=== PATIENT | female | born 1955 | race Caucasian/White ===

== ENCOUNTER 2018-05-17 12:24 | Inpatient (IN) | payer SELFPAY ==
[2018-05-17 12:41] VITALS: BP 111/84; PULSE 77; RESP 16; TEMP 36.6; O2SAT 91; BMI 31.9
[2018-05-17 13:10] VITALS: O2SAT 93
--- NOTE | 2018-05-17 13:22 | CT_ITS ---
CT abdomen pelvis w con CLINICAL INDICATION: Abdominal pain with distention and vomiting, constipation ITS.REASON: abdominal pain, distention ORDERING PHYSICIAN: Irene Mena MD PATIENT AGE: 62 years COMPARISON: none TECHNIQUE: Axial images obtained with sagittal and coronal reformats. All CT scans at the facility use one or more dose reduction, viz: automated exposure control, ma/kV adjustment per patient size (including targeted exams where dose is matched to indication, i.e. head), or iterative reconstruction technique. PROCEDURE: Oral Contrast: Gastroview IV Contrast: 75 mL's of Isovue-370. FINDINGS: Lower thorax: There is collapse of the left lower lobe with a moderate-sized left pleural effusion. The liver has irregular margin and is slightly small consistent with cirrhosis. There is diffuse ascites. There is splenomegaly at 15 cm. No focal liver lesion demonstrated. The gallbladder is distended at 11 x 5.5 cm. Unremarkable adrenal glands. No obvious pancreatic mass. There is diffuse abdominal pelvic ascites. Increased attenuation noted of the mesenteric fat and there is mild diffuse colonic wall thickening and small bowel wall thickening as well. These findings may be seen with cirrhosis/portal hypertension and ascites. However, there is asymmetrical increased thickening of the colon in the splenic flexure region which may be related to superimposed colitis. Neoplasm could have a similar appearance. Therefore, follow-up is recommended. No evidence of intestinal obstruction or free air. No obvious abscess. There is also some mild thickening of the rectosigmoid region nonspecific. No acute bony findings. IMPRESSION: 1. Cirrhosis with portal hypertension with ascites, and splenomegaly with mild diffuse bowel wall thickening and increased attenuation of the peritoneal fat 2. Asymmetrical: Thickening in the splenic flexure suspicious for underlying colitis or even neoplasm. 3. Distended gallbladder. 4. Moderate-sized left pleural effusion with left lower lobe collapse
[2018-05-17 14:10] LABS: Alanine Aminotransferase 47 U/L (12-78); Albumin Level 2.6 gm/dL (3.4-5.0); Albumin/Globulin Ratio 0.5 (1.1-1.8); Alkaline Phosphatase 146 U/L (46-116); Amylase 21 U/L (25-115); Anion Gap 11.8 mEq/L (5-15); Aspartate Amino Transferase 130 U/L (15-37); Bilirubin,Total 2.2 mg/dL (0.2-1.0); Blood Urea Nitrogen 12 mg/dL (7-18); Calcium 8.8 mg/dL (8.5-10.1); Carbon Dioxide 29 mmol/L (21.0-32.0); Chloride 99 mmol/L (98-107); Creatinine Clearance Estimated 77 mL/min (50-200); Creatinine,Serum 1.01 mg/dL (0.55-1.02); Estimated Glomerular Filt Rate 56 ml/min (>60); GFR (African American) 67 ML/MIN (>60); Globulin 5.4 gm/dl (1.3-3.2); Glucose 104 mg/dL (74-106); Lipase 190 u/L (73-393); Sodium 137 mmol/L (136-145); Thyroid Stimulating Hormone 0.24 uIU/ml (0.358-3.740)
[2018-05-17 14:11] LABS: CKMB Relative Index 1.4 U/L (0-4.0); Creatine Kinase 36 U/L (26-192); Creatine Kinase MB 0.5 ng/ml (0.0-3.6); Troponin I < 0.02 ng/ml (0.00-0.06)
[2018-05-17 14:12] LABS: Potassium 2.8 mmoL/L (3.5-5.1)
--- NOTE | 2018-05-17 14:18 | P.CONPHA_ITS ---
[facility] Pharmacy VTE Monitoring - Patient Demographics Admission date: 05/17/18 Report Date: 05/17/18 Time: 14:18 Allergies/Adverse Reactions: Patient Allergies morphine Allergy (Severe, Verified 05/17/18 13:00) Hallucinating Penicillins Allergy (Severe, Verified 05/17/18 14:13) Anaphylaxis COFFEE BEANS Allergy (Unknown, Uncoded 04/05/17 14:43) HISTAMINE RELEASE-DIFF BREATHING FISH ONLY Allergy (Unknown, Uncoded 04/05/17 14:43) HISTAMINE RELEASE-DIFF BREATHING GARLIC Allergy (Unknown, Uncoded 04/05/17 14:43) VOMITING/DIARRHEA Promethazine Allergy (Unknown, Uncoded 04/05/17 14:43) NA-NAUSEA/VOMITING STRAWBERRIES Allergy (Unknown, Uncoded 04/05/17 14:43) HISTAMINE RELEASE-DIFF BREATHING Height: 1.63 m Weight: 84.482 kg - VTE Risk Labs: VTE Related Lab Results BUN 12 mg/dL (7-18) 05/17/18 13:28 Creatinine 1.01 mg/dL (0.55-1.02) 05/17/18 13:28 Estimated Creat Clear 77 mL/min (50-200) 05/17/18 13:28 Was VTE Risk Assessment Performed: Yes VTE Score: 9 VTE Risk Level: Moderate Risk Clinical Trial Participant: No - Prophylaxis VTE Prophylaxis Ordered?: Yes Types of VTE Prophylaxis: TEDS Knee High
[2018-05-17 14:25] LABS: Basophils % 0.2 % (0.1-2.0); Eosinophils % 0.6 % (0.1-12.0); Hematocrit 50.4 % (37.0-47.0); Hemoglobin 15.4 g/dL (12.2-16.2); Lymphocytes # 0.8 K/mm3 (0.7-4.5); Lymphocytes % 17.3 % (10-50); Mean Corpuscular HGB Conc 30.5 g/dL (31.8-35.4); Mean Corpuscular Hemoglobin 25.8 pg (27.0-31.2); Mean Corpuscular Volume 84.5 fl (81-99); Mean Platelet Volume 8.6 fl (7.4-10.4); Monocytes # 0.2 K/mm3 (0.1-1.0); Monocytes % 4.8 % (1.7-9.3); Neutrophils # 3.7 K/mm3 (1.8-7.8); Platelet Count 117 K/mm3 (142-424); Red Blood Count 5.96 M/mm3 (4.20-5.40); Red Cell Distribution Width 22.2 % (11.5-17.5); White Blood Count 4.9 K/mm3 (4.8-10.8)
--- NOTE | 2018-05-17 14:55 | HMH.PHAINT ---
Discussed home medication list with patient at length. Discussed list from Dr Mena's office with her and confirmed doses and directions with her. updated home medication reconciliation list to reflect that discussion.
[2018-05-17 15:16] VITALS: BP 125/78; PULSE 66; RESP 17; TEMP 36.8; O2SAT 93
--- NOTE | 2018-05-17 15:18 | PC.NURSE ---
patient came to floor as new admit. refused bath. reported to nurse
--- NOTE | 2018-05-17 15:57 | PC.NURSE ---
Pt admitted to floor via w/c as direct admission from Dr. Reynoso office at 1233. A/O x 3, verbalizes needs. Pt states she has not had a bowel movement for 2 weeks, c/o's N/V due to sinus drainage, and hard abdomen with pain. Pt with rigid, non-tender abdomen. Rates abdomen pain at 7/10. Stated she gave herself a fleets enema at home with no results. 20g IV started to LAC, with D5W 0.45% NaCL with 20 mEq of potassium infusing. PRN zofran given d/t nausea and having to drink oral contrast. Med rec completed by pharmacy. Lungs CTA, uses CPAP at night but does not want to bring to hospital. O2 at 2 L/m via NC in place. C/o's shortness of air with excertion. Reports poor appetite and only being able to tolerate gatorade/víctor pavel/tea/water. Completed drinking oral contrast at 1600, notified CT. Locked checkbook and credit cards in med drawer per pt request. Call light within reach, will continue to observe for any changes.
--- NOTE | 2018-05-17 17:18 | PC.NURSE ---
LATE ENTRY 1700 CARE ROUND0- PT WAS LYING IN BED & NO NEEDS VOICED.
--- NOTE | 2018-05-17 19:12 | PC.NURSE ---
report given to rashid
--- NOTE | 2018-05-17 19:41 | XR_ITS ---
XR chest 2V HISTORY: Shortness of breath, pleural effusion ITS.REASON: pleural effusion ORDERING PHYSICIAN: Irene Mena MD PATIENT AGE: 62 years COMPARISON: 02/14/2014 FINDINGS: Prior median sternotomy. Normal heart size.. Medium-sized left pleural effusion noted with consolidation in the left lower lobe and mild atelectasis in the right lower lobe.. No acute bony abnormalities. IMPRESSION: Moderate size left pleural effusion with left lower lobe consolidation
[2018-05-17 20:00] VITALS: BP 141/72; PULSE 63; RESP 19; TEMP 37; O2SAT 94
--- NOTE | 2018-05-17 20:14 | HMH.ACPN2 ---
Internal Medicine - PN: Subj *Date: 05/17/18 *Time: 20:14 Interval history: This 62-year-old white female patient was admitted today from the office of [facility]. See the H&P that came over from the office. She was admitted with nausea and vomiting. She has had increase in abdominal girth and distention. She states that she has had no bowel movement for the past 2 weeks. She has been noncompliant in her office follow-up. She has known coronary artery disease. Her workup today has shown hypokalemia at 2.8. The CT of her abdomen and pelvis reveals evidence of cirrhosis and ascites. She is not a drinker, thus the etiology of this needs to be determined. History of colonoscopy in 2010. Exam Vital signs and Labs for Last 24 Hours: Temp Pulse Resp BP Pulse Ox 98.2 F 66 17 125/78 93 L 05/17/18 15:16 05/17/18 15:16 05/17/18 15:16 05/17/18 15:16 05/17/18 15:16 Laboratory Results - last 24 hr 05/17/18 13:28: WBC 4.9, RBC 5.96 H, Hgb 15.4, Hct 50.4 H, MCV 84.5, MCH 25.8 L, MCHC 30.5 L, RDW 22.2 H, Plt Count 117 L, MPV 8.6, Neut % (Auto) 77.0, Lymph % (Auto) 17.3, [place] % (Auto) 4.8, Eos % (Auto) 0.6, Baso % (Auto) 0.2, Neut # (Auto) 3.7, Lymph # (Auto) 0.8, [place] # (Auto) 0.2, Eos # (Auto) 0.0, Baso # (Auto) 0.0 05/17/18 13:28: Sodium 137, Potassium 2.8 L*, Chloride 99, Carbon Dioxide 29, Anion Gap 11.8, BUN 12, Creatinine 1.01, Estimated Creat Clear 77, Estimated GFR 56 L, Est GFR ( Amer) 67, Glucose 104, Calcium 8.8, Total Bilirubin 2.2 H, AST 130 H, ALT 47, Alkaline Phosphatase 146 H, Total Protein 8.0, Albumin 2.6 L, Globulin 5.4 H, Albumin/Globulin Ratio 0.5 L, Amylase 21 L, Lipase 190, TSH 0.24 L 05/17/18 13:28: Total Creatine Kinase 36, CK-MB (CK-2) 0.5, CK-MB (CK-2) Rel Index 1.4, Troponin I < 0.02 I & O for Last 24 hours: Intake & Output 05/15/18 05/16/18 05/17/18 05/18/18 11:59 11:59 11:59 11:59 Intake Total 350 / 350 Balance 350 / 350 Weight 186 lb 4 oz - Constitutional Comments: She appears ill but seems to be better than she was on admission. She was dehydrated on admission. - *Routine Respiratory Exam Present: decreased breath sounds, CTA bilaterally - *Routine Cardiovascular Exam Present: RRR - *Routine Abdominal Exam Present: normoactive bowel sounds (Slightly hypo-.), distended - *Routine Extremities Exam Absent: edema - *Routine Neurological Exam Present: alert, oriented X3 Assessment and Plan (1) Dehydration Current visit: Yes Status: Acute Category: Medical Code(s): E86.0 - Dehydration (2) Nausea and vomiting Current visit: Yes Status: Acute Category: Medical Code(s): R11.2 - Nausea with vomiting, unspecified (3) Cirrhosis of liver with ascites Current visit: Yes Status: Acute Category: Medical Code(s): K74.60 - Unspecified cirrhosis of liver; R18.8 - Other ascites (4) Pleural effusion associated with hepatic disorder Current visit: Yes Status: Acute Category: Medical Code(s): K76.9 - Liver disease, unspecified; J91.8 - Pleural effusion in other conditions classified elsewhere (5) Hypokalemia Current visit: Yes Status: Acute Category: Medical Code(s): E87.6 - Hypokalemia (6) Coronary artery disease Current visit: Yes Status: Acute Category: Medical Code(s): I25.10 - Atherosclerotic heart disease of [place] coronary artery without angina pectoris (7) History of coronary artery bypass graft x 3 Current visit: Yes Status: Acute Category: Surgical Code(s): Z95.1 - Presence of aortocoronary bypass graft (8) Rheumatoid arthritis Current visit: Yes Status: Acute Category: Medical Code(s): M06.9 - Rheumatoid arthritis, unspecified (9) Goiter Current visit: Yes Status: Acute Category: Medical Code(s): E04.9 - Nontoxic goiter, unspecified (10) Smoking history Current visit: Yes Status: Acute Category: Medical Code(s): Z87.891 - Personal history of nicotine dep
--- NOTE | 2018-05-17 20:17 | P.PN_ITS ---
Internal Medicine - PN: Subj *Date: 05/17/18 *Time: 20:14 Interval history: This 62-year-old white female patient was admitted today from the office of [facility]. See the H&P that came over from the office. She was admitted with nausea and vomiting. She has had increase in abdominal girth and distention. She states that she has had no bowel movement for the past 2 weeks. She has been noncompliant in her office follow-up. She has known coronary artery disease. Her workup today has shown hypokalemia at 2.8. The CT of her abdomen and pelvis reveals evidence of cirrhosis and ascites. She is not a drinker, thus the etiology of this needs to be determined. History of colonoscopy in 2010. Exam Vital signs and Labs for Last 24 Hours: Temp Pulse Resp BP Pulse Ox 98.2 F 66 17 125/78 93 L 05/17/18 15:16 05/17/18 15:16 05/17/18 15:16 05/17/18 15:16 05/17/18 15:16 Laboratory Results - last 24 hr 05/17/18 13:28: WBC 4.9, RBC 5.96 H, Hgb 15.4, Hct 50.4 H, MCV 84.5, MCH 25.8 L, MCHC 30.5 L, RDW 22.2 H, Plt Count 117 L, MPV 8.6, Neut % (Auto) 77.0, Lymph % (Auto) 17.3, [place] % (Auto) 4.8, Eos % (Auto) 0.6, Baso % (Auto) 0.2, Neut # (Auto) 3.7, Lymph # (Auto) 0.8, [place] # (Auto) 0.2, Eos # (Auto) 0.0, Baso # (Auto) 0.0 05/17/18 13:28: Sodium 137, Potassium 2.8 L*, Chloride 99, Carbon Dioxide 29, Anion Gap 11.8, BUN 12, Creatinine 1.01, Estimated Creat Clear 77, Estimated GFR 56 L, Est GFR ( Amer) 67, Glucose 104, Calcium 8.8, Total Bilirubin 2.2 H , AST 130 H, ALT 47, Alkaline Phosphatase 146 H, Total Protein 8.0, Albumin 2.6 L, Globulin 5.4 H, Albumin/Globulin Ratio 0.5 L, Amylase 21 L, Lipase 190, TSH 0.24 L 05/17/18 13:28: Total Creatine Kinase 36, CK-MB (CK-2) 0.5, CK-MB (CK-2) Rel Index 1.4, Troponin I < 0.02 I & O for Last 24 hours: Intake & Output 05/15/18 05/16/18 05/17/18 05/18/18 11:59 11:59 11:59 11:59 Intake Total 350 / 350 Balance 350 / 350 Weight 186 lb 4 oz - Constitutional Comments: She appears ill but seems to be better than she was on admission. She was dehydrated on admission. - *Routine Respiratory Exam Present: decreased breath sounds, CTA bilaterally - *Routine Cardiovascular Exam Present: RRR - *Routine Abdominal Exam Present: normoactive bowel sounds (Slightly hypo-.), distended - *Routine Extremities Exam Absent: edema - *Routine Neurological Exam Present: alert, oriented X3 Assessment and Plan (1) Dehydration Current visit: Yes Status: Acute Category: Medical Code(s): E86.0 - Dehydration (2) Nausea and vomiting Current visit: Yes Status: Acute Category: Medical Code(s): R11.2 - Nausea with vomiting, unspecified (3) Cirrhosis of liver with ascites Current visit: Yes Status: Acute Category: Medical Code(s): K74.60 - Unspecified cirrhosis of liver; R18.8 - Other ascites (4) Pleural effusion associated with hepatic disorder Current visit: Yes Status: Acute Category: Medical Code(s): K76.9 - Liver disease, unspecified; J91.8 - Pleural effusion in other conditions classified elsewhere (5) Hypokalemia Current visit: Yes Status: Acute Category: Medical Code(s): E87.6 - Hypokalemia (6) Coronary artery disease Current visit: Yes Status: Acute Category: Medical Code(s): I25.10 - Atherosclerotic heart disease of [place] coronary artery without angina
[2018-05-18] VITALS (8 sets, daily range): BP systolic 126–157; BP diastolic 65–84; PULSE 66–90; RESP 16–20; TEMP 36.6–37.3; O2SAT 91–95; BMI 31.8
--- NOTE | 2018-05-18 04:35 | PC.NURSE ---
UPON INITIAL ASSESSMENT ABD DISTENDED AND TENDER WITH HYPOACTIVE BOWEL SOUNDS. PT. REPORTS FLATUS AND BELCHING. AT 0154 PT. BATHROOM CALL LIGHT WENT OFF; SRNA RESPONDED TO LIGHT THEN ALERTED NURSE TO ALSO RESPOND. UPON ENTERING PT. BATHROOM, PT. WAS FOUND SITTING ON THE BATHROOM FLOOR FACING THE TOILET; LOOSE STOOL NOTED ON PT. AND BATHROOM FLOOR. PT. ABLE TO STATE NAME, AND PLACE AND DENIED PAIN. PT. REPORTED DIZZINESS. VS: BP: 157/84, HR: 90, O2 SAT: 91% RA. PT. STATED I FELT MY BELLY RUMBLE SO I WENT TO THE BATHROOM BUT DIDN'T MAKE IT , I WAS STANDING UP CLEANING THE FLOOR WHEN MY KNEES BUCKLED , I FELL ON MY BUTT . PT. ASSISTED TO SHOWER CHAIR WITH X3 ASSIST; WEAKNESS NOTED UPON STANDING. NO BRUISES OR OTHER ABNORMALITIES NOTED. PT. ABLE TO MOVE EXTREMITIES AT BASELINE FUNCTION. BSC PLACED IN ROOM, BED ALARM ACTIVATED, AND FALLEN STAR PROTOCOL IN PLACE. EDUCATED PT. ON THE IMPORTANCE OF NOTIFYING STAFF OF NEEDS; PT. VERBALIZED UNDERSTANDING. NOTIFIED OF ABOVE SITUATION AND RECOMMENDED BSC. PT. HAS NOT C/O N/V THIS SHIFT. IV PATENT AND INFUSING SHOWING NO S/S OF INFILTRATION. VSS. WILL CONTINUE TO MONITOR.
--- NOTE | 2018-05-18 07:00 | CA_ITS ---
PROCEDURE: 2-D M-mode and color Doppler study INDICATIONS FOR THE TEST: Chest pain COPD Heart Murmur Tobacco SmokingEX Palpitations Fatigue Syncope Edema Hypertension Diabetes Mellitus Rheumatic Fever SOB YOON Obesity+Hyperlipidemia Family History HD Additional History CABG, STENTS, PLEURAL EFFUSION, CAD, CIRRHOSIS, RHEUMATOID PATIENT INFORMATION HEIGHT: 64 WEIGHT:186 GENDER: Female B/P:125/78 2-D/M-MODE INTERPRETATION: 2-D MEASUREMENTS OBSERVED VALUES IN CMS Right Ventricular Dimension (RVDd) 2.1 Interventricular Septum (Thickness)(IVsd) 1.0 Left Ventricular Internal Dimensions(LVIDd) 5.0 Left Ventricular Posterior Wall (Thickness)(LVPWd) 0.9 Aortic Root 3.0 Aortic Cusp Separation 1.6 Left Atrial Dimensions (LAD) 4.5 2D 1. Left atrium is mildly enlarged, left ventricle is normal size, there is no concentric left ventricular hypertrophy, visually estimated ejection fraction 50% with no regional wall motion abnormality. 2. The right atrium and right ventricle are normal size and contractility. 3. There is nodular thickening and calcification of the aortic valve seen. The leaflet continue to display good mobility. 4. The mitral and tricuspid valvular grossly normal. 5. The pulmonic valve is poorly visualized. 6. No significant pericardial effusion noted, there is left-sided pleural effusion seen. DOPPLER INTERROGATION: Doppler interrogation of the aortic, mitral and tricuspid valvular presence of mild mitral and tricuspid regurgitation, tricuspid regurgitation jet velocity is inadequate for calculation of the right ventricular systolic pressure, grade 2 diastolic dysfunction seen with tissue Doppler evidence of raised left atrial pressure. CONCLUSION: 1. Mildly enlarged left atrium, normal left ventricular size, visually estimated ejection fraction 50% with no regional wall motion abnormality, grade 2 diastolic dysfunction seen with tissue Doppler evidence of raised left atrial pressure. 2. Mild mitral and tricuspid regurgitation 3. No significant pericardial effusion noted, there is left-sided pleural effusion seen.
--- NOTE | 2018-05-18 07:00 | US_ITS ---
US gallbladder HISTORY: Abdominal pain, ascites, distended gallbladder ITS.REASON: hepatitis with ascites ORDERING PHYSICIAN: Irene Mena MD PATIENT AGE: 62 years Comparison: None FINDINGS: PANCREAS: Unremarkable. No obvious mass or abnormal fluid collection. No ductal dilatation LIVER: Irregular contour of the liver with coarse echogenicity consistent with cirrhosis with ascites. The portal blood flow is abnormal. Turbulent flow is present in the portal region RIGHT KIDNEY: Unremarkable. Normal size and echogenicity. No hydronephrosis GALLBLADDER: The gallbladder is distended with thick appearing sludge. There is a small amount of pericholecystic fluid. Gallbladder wall is not thickened. Common bile duct is normal at 5 mm IMPRESSION: 1. Cirrhosis with ascites. There is turbulent blood flow in the portal vein area. This is of questionable clinical significance and could be seen with recanalization of the portal vein or turbulent flow with portal hypertension 2. Distended gallbladder with thick appearing sludge in the region of the neck of the gallbladder. Small stones could be obscured.
[2018-05-18 08:31] LABS: Alanine Aminotransferase 40 U/L (12-78); Albumin Level 2.2 gm/dL (3.4-5.0); Albumin/Globulin Ratio 0.5 (1.1-1.8); Alkaline Phosphatase 115 U/L (46-116); Anion Gap 10.4 mEq/L (5-15); Aspartate Amino Transferase 103 U/L (15-37); Bilirubin,Total 1.7 mg/dL (0.2-1.0); Blood Urea Nitrogen 9 mg/dL (7-18); Calcium 8.2 mg/dL (8.5-10.1); Carbon Dioxide 27 mmol/L (21.0-32.0); Chloride 101 mmol/L (98-107); Creatinine Clearance Estimated 78 mL/min (50-200); Creatinine,Serum 0.87 mg/dL (0.55-1.02); Estimated Glomerular Filt Rate 66 ml/min (>60); GFR (African American) 80 ML/MIN (>60); Globulin 4.4 gm/dl (1.3-3.2); Glucose 141 mg/dL (74-106); Potassium 3.4 mmoL/L (3.5-5.1); Sodium 135 mmol/L (136-145); Total Protein,Serum 6.6 gm/dL (6.4-8.2)
--- NOTE | 2018-05-18 08:45 | HMH.ACPN2 ---
Internal Medicine - PN: Subj *Date: 05/18/18 *Time: 08:45 Interval history: Patient still feels very poorly this morning. She states her entire abdomen is hurting. She still not had a bowel movement. She states she did have a small accident with some leakage of stool during the night but no actual bowel movement. She is very nauseated. She is also short of breath. Exam Vital signs and Labs for Last 24 Hours: Temp Pulse Resp BP Pulse Ox 97.9 F 74 16 152/77 H 94 L 05/18/18 08:00 05/18/18 08:00 05/18/18 08:00 05/18/18 08:00 05/18/18 08:00 Laboratory Results - last 24 hr 05/17/18 13:28: WBC 4.9, RBC 5.96 H, Hgb 15.4, Hct 50.4 H, MCV 84.5, MCH 25.8 L, MCHC 30.5 L, RDW 22.2 H, Plt Count 117 L, MPV 8.6, Neut % (Auto) 77.0, Lymph % (Auto) 17.3, [place] % (Auto) 4.8, Eos % (Auto) 0.6, Baso % (Auto) 0.2, Neut # (Auto) 3.7, Lymph # (Auto) 0.8, [place] # (Auto) 0.2, Eos # (Auto) 0.0, Baso # (Auto) 0.0 05/17/18 13:28: Sodium 137, Potassium 2.8 L*, Chloride 99, Carbon Dioxide 29, Anion Gap 11.8, BUN 12, Creatinine 1.01, Estimated Creat Clear 77, Estimated GFR 56 L, Est GFR ( Amer) 67, Glucose 104, Calcium 8.8, Total Bilirubin 2.2 H, AST 130 H, ALT 47, Alkaline Phosphatase 146 H, Total Protein 8.0, Albumin 2.6 L, Globulin 5.4 H, Albumin/Globulin Ratio 0.5 L, Amylase 21 L, Lipase 190, TSH 0.24 L 05/17/18 13:28: Total Creatine Kinase 36, CK-MB (CK-2) 0.5, CK-MB (CK-2) Rel Index 1.4, Troponin I < 0.02 I & O for Last 24 hours: Intake & Output 05/15/18 05/16/18 05/17/18 05/18/18 11:59 11:59 11:59 11:59 Intake Total 2073 Balance 2073 Weight 185 lb 9 oz Radiology Reports for the Last 24 Hours: CXR - Moderate size left pleural effusion with left lower lobe consolidation - Constitutional Comments: Does not appear to feel well - *Routine Respiratory Exam Present: rales (LLL). Absent: wheezes - *Routine Cardiovascular Exam Present: RRR - *Routine Abdominal Exam Present: normoactive bowel sounds, tenderness (diffuse), distended - *Routine Extremities Exam Absent: cyanosis, clubbing, edema Assessment and Plan (1) Dehydration Current visit: Yes Status: Acute Category: Medical Code(s): E86.0 - Dehydration (2) Nausea and vomiting Current visit: Yes Status: Acute Category: Medical Code(s): R11.2 - Nausea with vomiting, unspecified (3) Cirrhosis of liver with ascites Current visit: Yes Status: Acute Category: Medical Code(s): K74.60 - Unspecified cirrhosis of liver; R18.8 - Other ascites (4) Pleural effusion associated with hepatic disorder Current visit: Yes Status: Acute Category: Medical Code(s): K76.9 - Liver disease, unspecified; J91.8 - Pleural effusion in other conditions classified elsewhere (5) Hypokalemia Current visit: Yes Status: Acute Category: Medical Code(s): E87.6 - Hypokalemia (6) Coronary artery disease Current visit: Yes Status: Acute Category: Medical Code(s): I25.10 - Atherosclerotic heart disease of [place] coronary artery without angina pectoris (7) History of coronary artery bypass graft x 3 Current visit: Yes Status: Acute Category: Surgical Code(s): Z95.1 - Presence of aortocoronary bypass graft (8) Rheumatoid arthritis Current visit: Yes Status: Acute Category: Medical Code(s): M06.9 - Rheumatoid arthritis, unspecified (9) Goiter Current visit: Yes Status: Acute Category: Medical Code(s): E04.9 - Nontoxic goiter, unspecified (10) Smoking history Current visit: Yes Status: Acute Category: Medical Code(s): Z87.891 - Personal history of nicotine dependence - Assessment and plan all Dx Assessment and Plan for all problems:: The patient is to have a gallbladder ultrasound today and Dr. Guo has been consulted. Will recheck labs today.
--- NOTE | 2018-05-18 08:51 | P.PN_ITS ---
Internal Medicine - PN: Subj *Date: 05/18/18 *Time: 08:45 Interval history: Patient still feels very poorly this morning. She states her entire abdomen is hurting. She still not had a bowel movement. She states she did have a small accident with some leakage of stool during the night but no actual bowel movement. She is very nauseated. She is also short of breath. Exam Vital signs and Labs for Last 24 Hours: Temp Pulse Resp BP Pulse Ox 97.9 F 74 16 152/77 H 94 L 05/18/18 08:00 05/18/18 08:00 05/18/18 08:00 05/18/18 08:00 05/18/18 08:00 Laboratory Results - last 24 hr 05/17/18 13:28: WBC 4.9, RBC 5.96 H, Hgb 15.4, Hct 50.4 H, MCV 84.5, MCH 25.8 L, MCHC 30.5 L, RDW 22.2 H, Plt Count 117 L, MPV 8.6, Neut % (Auto) 77.0, Lymph % (Auto) 17.3, [place] % (Auto) 4.8, Eos % (Auto) 0.6, Baso % (Auto) 0.2, Neut # (Auto) 3.7, Lymph # (Auto) 0.8, [place] # (Auto) 0.2, Eos # (Auto) 0.0, Baso # (Auto) 0.0 05/17/18 13:28: Sodium 137, Potassium 2.8 L*, Chloride 99, Carbon Dioxide 29, Anion Gap 11.8, BUN 12, Creatinine 1.01, Estimated Creat Clear 77, Estimated GFR 56 L, Est GFR ( Amer) 67, Glucose 104, Calcium 8.8, Total Bilirubin 2.2 H , AST 130 H, ALT 47, Alkaline Phosphatase 146 H, Total Protein 8.0, Albumin 2.6 L, Globulin 5.4 H, Albumin/Globulin Ratio 0.5 L, Amylase 21 L, Lipase 190, TSH 0.24 L 05/17/18 13:28: Total Creatine Kinase 36, CK-MB (CK-2) 0.5, CK-MB (CK-2) Rel Index 1.4, Troponin I < 0.02 I & O for Last 24 hours: Intake & Output 05/15/18 05/16/18 05/17/18 05/18/18 11:59 11:59 11:59 11:59 Intake Total 2073 Balance 2073 Weight 185 lb 9 oz Radiology Reports for the Last 24 Hours: CXR - Moderate size left pleural effusion with left lower lobe consolidation - Constitutional Comments: Does not appear to feel well - *Routine Respiratory Exam Present: rales (LLL). Absent: wheezes - *Routine Cardiovascular Exam Present: RRR - *Routine Abdominal Exam Present: normoactive bowel sounds, tenderness (diffuse), distended - *Routine Extremities Exam Absent: cyanosis, clubbing, edema Assessment and Plan (1) Dehydration Current visit: Yes Status: Acute Category: Medical Code(s): E86.0 - Dehydration (2) Nausea and vomiting Current visit: Yes Status: Acute Category: Medical Code(s): R11.2 - Nausea with vomiting, unspecified (3) Cirrhosis of liver with ascites Current visit: Yes Status: Acute Category: Medical Code(s): K74.60 - Unspecified cirrhosis of liver; R18.8 - Other ascites (4) Pleural effusion associated with hepatic disorder Current visit: Yes Status: Acute Category: Medical Code(s): K76.9 - Liver disease, unspecified; J91.8 - Pleural effusion in other conditions classified elsewhere (5) Hypokalemia Current visit: Yes Status: Acute Category: Medical Code(s): E87.6 - Hypokalemia (6) Coronary artery disease Current visit: Yes Status: Acute Category: Medical Code(s): I25.10 - Atherosclerotic heart disease of [place] coronary artery without angina pectoris (7) History of coronary artery bypass graft x 3 Current visit: Yes Status: Acute Category: Surgical Code(s): Z95.1 - Presence of aortocoronary bypass graft (8) Rheumatoid arthritis Current visit: Yes Status: Acute Category: Medical Code(s): M06.9 - Rheumatoid arthritis, unspecified (9) [place]
[2018-05-18 09:28] LABS: Basophils % 0.5 % (0.1-2.0); Eosinophils % 0.7 % (0.1-12.0); Hematocrit 35.7 % (37.0-47.0); Lymphocytes # 0.9 K/mm3 (0.7-4.5); Lymphocytes % 16.8 % (10-50); Mean Corpuscular HGB Conc 30.2 g/dL (31.8-35.4); Mean Corpuscular Hemoglobin 26.1 pg (27.0-31.2); Mean Corpuscular Volume 86.7 fl (81-99); Mean Platelet Volume 9.3 fl (7.4-10.4); Monocytes # 0.3 K/mm3 (0.1-1.0); Monocytes % 6.3 % (1.7-9.3); Neutrophils # 3.9 K/mm3 (1.8-7.8); Neutrophils % 75.7 % (37.0-80.0); Platelet Count 119 K/mm3 (142-424); Red Blood Count 4.11 M/mm3 (4.20-5.40); Red Cell Distribution Width 22.2 % (11.5-17.5); White Blood Count 5.1 K/mm3 (4.8-10.8)
[2018-05-18 09:39] LABS: Hemoglobin 10.8 g/dL (12.2-16.2)
--- NOTE | 2018-05-18 09:39 | HMH.PHACLD ---
Melba Starks has received discharge medication counseling on the following medications:
--- NOTE | 2018-05-18 09:40 | PC.NURSE ---
V.O PER MD BARRY. Ok to advance diet as tolerated starting with clears after gallbladder ultrasound this afternoon. NPO starting at midnight tonight 05/19/18. will continue to monitor.
--- NOTE | 2018-05-18 10:52 | PC.NURSE ---
patient is sitting up in bed awake, trash was taken out, patient is NPO.
--- NOTE | 2018-05-18 13:21 | PC.NURSE ---
Patient tolerated clear liquid diet and requested to be advanced to a bland.
--- NOTE | 2018-05-18 13:25 | PC.NURSE ---
Patient reported that she had a nose bleed and that this happens at home as well, she stated that the MD is aware. RN offered to get patient a humidifier for her oxygen but she refuses at this time.
--- NOTE | 2018-05-18 16:49 | PC.NURSE ---
patient is sitting up in bed awake, ice water was given & trash was taken out.
--- NOTE | 2018-05-18 17:57 | PC.NURSE ---
PATIENT RESTING IN BED, NEW IV STARTED, OLD ONE IN AC MADE PUMP BEEP. DENIES ANY OTHER NEEDS. CALL MUNOZ IN REACH, BED IN LOWEST POSITION, WILL CONTINUE TO MONITOR.
--- NOTE | 2018-05-18 23:09 | PC.NURSE ---
PATIENT C/O NAUSEA AT THIS TIME. SHE RECEIVED PRN ZOFRAN AT 2050 AND IS NOT DUE AGAIN UNTIL 250. NO OTHER NAUSEA MEDICATION IS ORDERED. PATIENT HAS ALLERGY TO [facility]. SPOKE WITH DR. CABALLERO ([facility]) AT THIS TIME. TELEPHONE ORDER TO D/C ZOFRAN AND ORDER REGLAN 5 MG IV EVERY 6 HOURS NEEDED FOR NAUSEA/VOMITING. WILL CONTINUE TO MONITOR.
[2018-05-19] VITALS (7 sets, daily range): BP systolic 108–136; BP diastolic 61–74; PULSE 60–70; RESP 18–20; TEMP 36.5–37.6; O2SAT 92–95; BMI 33.3; BMI 33.1
--- NOTE | 2018-05-19 03:07 | PC.NURSE ---
2100 round changed trash checked gloves and trash bags
--- NOTE | 2018-05-19 04:04 | PC.NURSE ---
PATIENT HAS SLEPT ON AND OFF THIS SHIFT. SHE C/O OF NAUSEA THAT WAS UNRELIEVED WITH PRN ZOFRAN. WAS NOTIFIED AND ORDER FOR REGLAN WAS OBTAINED. AFTER RECEIVING ONE DOSE OF REGLAN, PATIENT HAS HAD NO C/O NAUSEA/VOMITING SO FAR. PATIENT HAS HAD ONE SMALL, SOFT BOWEL MOVEMENT THIS SHIFT. NO C/O PAIN. NO ACUTE CHANGES HAVE BEEN NOTED SINCE PREVIOUS ASSESSMENT. PATIENT IS CURRENTLY IN BED SLEEPING. NO OTHER PROBLEMS NOTED AT THIS TIME. VSS. WILL CONTINUE TO MONITOR.
[2018-05-19 07:11] LABS: Alanine Aminotransferase 45 U/L (12-78); Albumin/Globulin Ratio 0.5 (1.1-1.8); Alkaline Phosphatase 112 U/L (46-116); Anion Gap 13.3 mEq/L (5-15); Aspartate Amino Transferase 98 U/L (15-37); Bilirubin,Total 1.5 mg/dL (0.2-1.0); Blood Urea Nitrogen 7 mg/dL (7-18); Calcium 8.1 mg/dL (8.5-10.1); Carbon Dioxide 23 mmol/L (21.0-32.0); Chloride 102 mmol/L (98-107); Creatinine Clearance Estimated 81 mL/min (50-200); Creatinine,Serum 0.86 mg/dL (0.55-1.02); Estimated Glomerular Filt Rate 67 ml/min (>60); GFR (African American) 81 ML/MIN (>60); Globulin 4.4 gm/dl (1.3-3.2); Potassium 4.3 mmoL/L (3.5-5.1); Sodium 134 mmol/L (136-145); Total Protein,Serum 6.4 gm/dL (6.4-8.2)
--- NOTE | 2018-05-19 07:11 | PC.NURSE ---
REPORT GIVEN TO Xin RAE RN
[2018-05-19 07:16] LABS: Hep A Ab, IgM Negative (Negative); Hepatitis B Core Antibody IgM Negative (Negative); Hepatitis B Surface Antigen Negative (Negative)
[2018-05-19 07:54] LABS: Glucose 132 mg/dL (74-106)
--- NOTE | 2018-05-19 08:15 | US_ITS ---
US biopsy guidance HISTORY: Ascites with trouble breathing ITS.REASON: Paracentesis ORDERING PHYSICIAN: Irene Mena MD PATIENT AGE: 62 years Comparison: None PROCEDURE: Following obtaining informed consent and after appropriate Time out, under aseptic conditions and local anesthesia with 1% buffered lidocaine using sonographic guidance a 4 English one-step catheter was inserted into the largest pocket of fluid localized in the right lower quadrant. Approximately 4200 cc of Serosanguineous fluid was drained. Fluid was sent to the lab for analysis The patient tolerated the procedure well and left the radiology suite in stable condition. IMPRESSION: Successful sonographic guided paracentesis without complication
--- NOTE | 2018-05-19 08:27 | HMH.ACPN2 ---
Internal Medicine - PN: Subj *Date: 05/19/18 *Time: 08:27 Interval history: Patient states she still feels poorly today. She has not had a bowel movement and her abdomen is still very and painful. She was able to sleep last night after receiving a dose of Reglan. Exam Vital signs and Labs for Last 24 Hours: Temp Pulse Resp BP Pulse Ox 99.7 F H 65 18 136/74 92 L 05/19/18 08:00 05/19/18 08:00 05/19/18 08:00 05/19/18 08:00 05/19/18 08:00 Laboratory Results - last 24 hr 05/18/18 06:50: Sodium 135 L, Potassium 3.4 L D, Chloride 101, Carbon Dioxide 27, Anion Gap 10.4, BUN 9, Creatinine 0.87, Estimated Creat Clear 78, Estimated GFR 66, Est GFR ( Amer) 80, Glucose 141 H D, Calcium 8.2 L, Total Bilirubin 1.7 H, AST 103 H, ALT 40, Alkaline Phosphatase 115, Total Protein 6.6, Albumin 2.2 L D, Globulin 4.4 H, Albumin/Globulin Ratio 0.5 L 05/18/18 06:50: WBC 5.1, RBC 4.11 L D, Hgb 10.8 L D, Hct 35.7 L, MCV 86.7, MCH 26.1 L, MCHC 30.2 L, RDW 22.2 H, Plt Count 119 L, MPV 9.3, Neut % (Auto) 75.7, Lymph % (Auto) 16.8, [place] % (Auto) 6.3, Eos % (Auto) 0.7, Baso % (Auto) 0.5, Neut # (Auto) 3.9, Lymph # (Auto) 0.9, [place] # (Auto) 0.3, Eos # (Auto) 0.0, Baso # (Auto) 0.0 05/19/18 05:34: Sodium 134 L, Potassium 4.3 D, Chloride 102, Carbon Dioxide 23, Anion Gap 13.3, BUN 7, Creatinine 0.86, Estimated Creat Clear 81, Estimated GFR 67, Est GFR ( Amer) 81, Glucose 132 H, Calcium 8.1 L, Total Bilirubin 1.5 H, AST 98 H, ALT 45, Alkaline Phosphatase 112, Total Protein 6.4, Albumin 2.0 L, Globulin 4.4 H, Albumin/Globulin Ratio 0.5 L I & O for Last 24 hours: Intake & Output 05/16/18 05/17/18 05/18/18 05/19/18 11:59 11:59 11:59 11:59 Intake Total 2073 2382 / 2382 Output Total 300 / 300 Balance 2073 / 2081 Weight 185 lb 9 oz 194 lb 4 oz Radiology Reports for the Last 24 Hours: GB U/S 1. Cirrhosis with ascites. There is turbulent blood flow in the portal vein area. This is of questionable clinical significance and could be seen with recanalization of the portal vein or turbulent flow with portal hypertension 2. Distended gallbladder with thick appearing sludge in the region of the neck of the gallbladder. Small stones could be obscured. - Constitutional no acute distress - *Routine Respiratory Exam Present: rales (bibasilar but worse on the left) - *Routine Cardiovascular Exam Present: RRR - *Routine Abdominal Exam Present: soft, normoactive bowel sounds. Absent: tenderness - *Routine Extremities Exam Present: edema (bilateral LE's) Assessment and Plan (1) Dehydration Current visit: Yes Status: Acute Category: Medical Code(s): E86.0 - Dehydration (2) Nausea and vomiting Current visit: Yes Status: Acute Category: Medical Code(s): R11.2 - Nausea with vomiting, unspecified (3) Cirrhosis of liver with ascites Current visit: Yes Status: Acute Category: Medical Code(s): K74.60 - Unspecified cirrhosis of liver; R18.8 - Other ascites (4) Pleural effusion associated with hepatic disorder Current visit: Yes Status: Acute Category: Medical Code(s): K76.9 - Liver disease, unspecified; J91.8 - Pleural effusion in other conditions classified elsewhere (5) Hypokalemia Current visit: Yes Status: Acute Category: Medical Code(s): E87.6 - Hypokalemia (6) Coronary artery disease Current visit: Yes Status: Acute Category: Medical Code(s): I25.10 - Atherosclerotic heart disease of [place] coronary artery without angina pectoris (7) History of coronary artery bypass graft x 3 Current visit: Yes Status: Acute Category: Surgical Code(s): Z95.1 - Presence of aortocoronary bypass graft (8) Rheumatoid arthritis Current visit: Yes Status: Acute Category: Medical Code(s): M06.9 - Rheumatoid arthritis, unspecified (9) Goiter Current visit: Yes Status: Acute Category: Medical Code(s): E04.9 - Nontoxic goiter, unspecified (10)
--- NOTE | 2018-05-19 08:30 | P.PN_ITS ---
Internal Medicine - PN: Subj *Date: 05/19/18 *Time: 08:27 Interval history: Patient states she still feels poorly today. She has not had a bowel movement and her abdomen is still very and painful. She was able to sleep last night after receiving a dose of Reglan. Exam Vital signs and Labs for Last 24 Hours: Temp Pulse Resp BP Pulse Ox 99.7 F H 65 18 136/74 92 L 05/19/18 08:00 05/19/18 08:00 05/19/18 08:00 05/19/18 08:00 05/19/18 08:00 Laboratory Results - last 24 hr 05/18/18 06:50: Sodium 135 L, Potassium 3.4 L D, Chloride 101, Carbon Dioxide 27, Anion Gap 10.4, BUN 9, Creatinine 0.87, Estimated Creat Clear 78, Estimated GFR 66, Est GFR ( Amer) 80, Glucose 141 H D, Calcium 8.2 L, Total Bilirubin 1.7 H, AST 103 H, ALT 40, Alkaline Phosphatase 115, Total Protein 6.6, Albumin 2.2 L D, Globulin 4.4 H, Albumin/Globulin Ratio 0.5 L 05/18/18 06:50: WBC 5.1, RBC 4.11 L D, Hgb 10.8 L D, Hct 35.7 L, MCV 86.7, MCH 26.1 L, MCHC 30.2 L, RDW 22.2 H, Plt Count 119 L, MPV 9.3, Neut % (Auto) 75.7, Lymph % (Auto) 16.8, [place] % (Auto) 6.3, Eos % (Auto) 0.7, Baso % (Auto) 0.5, Neut # (Auto) 3.9, Lymph # (Auto) 0.9, [place] # (Auto) 0.3, Eos # (Auto) 0.0, Baso # (Auto) 0.0 05/19/18 05:34: Sodium 134 L, Potassium 4.3 D, Chloride 102, Carbon Dioxide 23, Anion Gap 13.3, BUN 7, Creatinine 0.86, Estimated Creat Clear 81, Estimated GFR 67, Est GFR ( Amer) 81, Glucose 132 H, Calcium 8.1 L, Total Bilirubin 1.5 H, AST 98 H, ALT 45, Alkaline Phosphatase 112, Total Protein 6.4, Albumin 2.0 L, Globulin 4.4 H, Albumin/Globulin Ratio 0.5 L I & O for Last 24 hours: Intake & Output 05/16/18 05/17/18 05/18/18 05/19/18 11:59 11:59 11:59 11:59 Intake Total 2073 2382 / 2382 Output Total 300 / 300 Balance 2073 / 2081 Weight 185 lb 9 oz 194 lb 4 oz Radiology Reports for the Last 24 Hours: GB U/S 1. Cirrhosis with ascites. There is turbulent blood flow in the portal vein area. This is of questionable clinical significance and could be seen with recanalization of the portal vein or turbulent flow with portal hypertension 2. Distended gallbladder with thick appearing sludge in the region of the neck of the gallbladder. Small stones could be obscured. - Constitutional no acute distress - *Routine Respiratory Exam Present: rales (bibasilar but worse on the left) - *Routine Cardiovascular Exam Present: RRR - *Routine Abdominal Exam Present: soft, normoactive bowel sounds. Absent: tenderness - *Routine Extremities Exam Present: edema (bilateral LE's) Assessment and Plan (1) Dehydration Current visit: Yes Status: Acute Category: Medical Code(s): E86.0 - Dehydration (2) Nausea and vomiting Current visit: Yes Status: Acute Category: Medical Code(s): R11.2 - Nausea with vomiting, unspecified (3) Cirrhosis of liver with ascites Current visit: Yes Status: Acute Category: Medical Code(s): K74.60 - Unspecified cirrhosis of liver; R18.8 - Other ascites (4) Pleural effusion associated with hepatic disorder Current visit: Yes Status: Acute Category: Medical Code(s): K76.9 - Liver disease, unspecified; J91.8 - Pleural effusion in other conditions classified elsewhere (5) Hypokalemia Current visit: Yes Status: Acute Category: Medical Code(s): E87.6 - Hypokalemia (6) Coronary artery disease Current visit: Yes Status: Acute
--- NOTE | 2018-05-19 08:36 | PC.NURSE ---
Pt sitting up in bed at this time. No needs or complaints stated. Pain 0/10. Trash emptied. No water given at this time due to pt's NPO status.
--- NOTE | 2018-05-19 08:57 | PC.NURSE ---
courtesy round done on patient. no complaints or concerns. happy with current pain level finally . stated i am happy with night nurse who called low vision therapist md and got me giuseppe ordered it helped a lot . instructed to ring out as needed
--- NOTE | 2018-05-19 09:06 | HMH.SWING2 ---
*Admission Date: 05/17/18 Exam Vital signs and Labs for Last 24 Hours: Temp Pulse Resp BP Pulse Ox 99.7 F H 65 18 136/74 92 L 05/19/18 08:00 05/19/18 08:00 05/19/18 08:00 05/19/18 08:00 05/19/18 08:00 Laboratory Results - last 24 hr 05/18/18 06:50: WBC 5.1, RBC 4.11 L D, Hgb 10.8 L D, Hct 35.7 L, MCV 86.7, MCH 26.1 L, MCHC 30.2 L, RDW 22.2 H, Plt Count 119 L, MPV 9.3, Neut % (Auto) 75.7, Lymph % (Auto) 16.8, [place] % (Auto) 6.3, Eos % (Auto) 0.7, Baso % (Auto) 0.5, Neut # (Auto) 3.9, Lymph # (Auto) 0.9, [place] # (Auto) 0.3, Eos # (Auto) 0.0, Baso # (Auto) 0.0 05/19/18 05:34: Sodium 134 L, Potassium 4.3 D, Chloride 102, Carbon Dioxide 23, Anion Gap 13.3, BUN 7, Creatinine 0.86, Estimated Creat Clear 81, Estimated GFR 67, Est GFR ( Amer) 81, Glucose 132 H, Calcium 8.1 L, Total Bilirubin 1.5 H, AST 98 H, ALT 45, Alkaline Phosphatase 112, Total Protein 6.4, Albumin 2.0 L, Globulin 4.4 H, Albumin/Globulin Ratio 0.5 L I & O for Last 24 hours: Intake & Output 05/16/18 05/17/18 05/18/18 05/19/18 23:59 23:59 23:59 23:59 Intake Total 350 / 350 4106 / 4106 Output Total 300 / 300 Balance 350 / 350 3806 / 3806 Weight 186 lb 4 oz 185 lb 9 oz 194 lb 4 oz Results Labs on day of discharge: Labs from last 24 hours 05/19/18 05/18/18 05:34 06:50 WBC 5.1 RBC 4.11 L D Hgb 10.8 L D Hct 35.7 L MCV 86.7 MCH 26.1 L MCHC 30.2 L RDW 22.2 H Plt Count 119 L MPV 9.3 Neut % (Auto) 75.7 Lymph % (Auto) 16.8 [place] % (Auto) 6.3 Eos % (Auto) 0.7 Baso % (Auto) 0.5 Neut # (Auto) 3.9 Lymph # (Auto) 0.9 [place] # (Auto) 0.3 Eos # (Auto) 0.0 Baso # (Auto) 0.0 Sodium 134 L Potassium 4.3 D Chloride 102 Carbon Dioxide 23 Anion Gap 13.3 BUN 7 Creatinine 0.86 Estimated Creat Clear 81 Estimated GFR 67 Est GFR ( Amer) 81 Glucose 132 H Calcium 8.1 L Total Bilirubin 1.5 H AST 98 H ALT 45 Alkaline Phosphatase 112 Total Protein 6.4 Albumin 2.0 L Globulin 4.4 H Albumin/Globulin Ratio 0.5 L DS: Diagnosis - Discharge Diagnosis (1) Dehydration Status: Acute (2) Nausea and vomiting Status: Acute (3) Cirrhosis of liver with ascites Status: Acute (4) Pleural effusion associated with hepatic disorder Status: Acute (5) Hypokalemia Status: Acute (6) Coronary artery disease Status: Acute (7) History of coronary artery bypass graft x 3 Status: Acute (8) Rheumatoid arthritis Status: Acute (9) Goiter Status: Acute (10) Smoking history Status: Acute Discharge/Transfer (Swing Bed) - Plan of Care Certification: I have reviewed and agree with this resident's plan of care. I certify that post-hospital fci facility services are required to be given on an inpatient basis because of the need for fci care on a continuing basis for the condition(s) for which he/she is receiving inpatient hospital services prior to admission to swing bed. I also certify that the resident meets existing SNF level of care definition. - Discharge from Acute Current Home Med List: Home Medications Medication Instructions Recorded Confirmed Type Albuterol Sulfate [Albuterol HFA 2 puffs IH Q6HP PRN 05/17/18 05/17/18 History Inhaler] Amiodarone HCl 200 mg PO DAILY 05/17/18 05/17/18 History Aspirin [Aspirin 81mg EC Tab] 81 mg PO DAILY 05/17/18 05/17/18 History Atorvastatin Calcium [Atorvastatin 40 mg PO HS 05/17/18 05/17/18 History 40mg Tab] Cetirizine HCl [Zyrtec] 10 mg PO DAILYP PRN 05/17/18 05/17/18 History Citalopram Hydrobromide [Celexa 20 mg PO DAILY 05/17/18 05/17/18 History 20mg Tablet] Codeine/Butalbital/ASA/Caffein 1 each PO QIDP PRN 05/17/18 05/17/18 History [Fiorinal-Cod [id number] Cap] Diclofenac Epolamine [Flector] 1 patch TD BIDP PRN 05/17/18 05/17/18 History Esomeprazole Magnesium [Nexium] 20 mg PO BID 05/17/18 05/17/18 History Ferrous
--- NOTE | 2018-05-19 09:11 | P.SWB_ITS ---
*Admission Date: 05/17/18 Exam Vital signs and Labs for Last 24 Hours: Temp Pulse Resp BP Pulse Ox 99.7 F H 65 18 136/74 92 L 05/19/18 08:00 05/19/18 08:00 05/19/18 08:00 05/19/18 08:00 05/19/18 08:00 Laboratory Results - last 24 hr 05/18/18 06:50: WBC 5.1, RBC 4.11 L D, Hgb 10.8 L D, Hct 35.7 L, MCV 86.7, MCH 26.1 L, MCHC 30.2 L, RDW 22.2 H, Plt Count 119 L, MPV 9.3, Neut % (Auto) 75.7, Lymph % (Auto) 16.8, [place] % (Auto) 6.3, Eos % (Auto) 0.7, Baso % (Auto) 0.5, Neut # (Auto) 3.9, Lymph # (Auto) 0.9, [place] # (Auto) 0.3, Eos # (Auto) 0.0, Baso # (Auto) 0.0 05/19/18 05:34: Sodium 134 L, Potassium 4.3 D, Chloride 102, Carbon Dioxide 23, Anion Gap 13.3, BUN 7, Creatinine 0.86, Estimated Creat Clear 81, Estimated GFR 67, Est GFR ( Amer) 81, Glucose 132 H, Calcium 8.1 L, Total Bilirubin 1.5 H, AST 98 H, ALT 45, Alkaline Phosphatase 112, Total Protein 6.4, Albumin 2.0 L, Globulin 4.4 H, Albumin/Globulin Ratio 0.5 L I & O for Last 24 hours: Intake & Output 05/16/18 05/17/18 05/18/18 05/19/18 23:59 23:59 23:59 23:59 Intake Total 350 / 350 4106 / 4106 Output Total 300 / 300 Balance 350 / 350 3806 / 3806 Weight 186 lb 4 oz 185 lb 9 oz 194 lb 4 oz Results Labs on day of discharge: Labs from last 24 hours 05/19/18 05/18/18 05:34 06:50 WBC 5.1 RBC 4.11 L D Hgb 10.8 L D Hct 35.7 L MCV 86.7 MCH 26.1 L MCHC 30.2 L RDW 22.2 H Plt Count 119 L MPV 9.3 Neut % (Auto) 75.7 Lymph % (Auto) 16.8 [place] % (Auto) 6.3 Eos % (Auto) 0.7 Baso % (Auto) 0.5 Neut # (Auto) 3.9 Lymph # (Auto) 0.9 [place] # (Auto) 0.3 Eos # (Auto) 0.0 Baso # (Auto) 0.0 Sodium 134 L Potassium 4.3 D Chloride 102 Carbon Dioxide 23 Anion Gap 13.3 BUN 7 Creatinine 0.86 Estimated Creat Clear 81 Estimated GFR 67 Est GFR ( Amer) 81 Glucose 132 H Calcium 8.1 L Total Bilirubin 1.5 H AST 98 H ALT 45 Alkaline Phosphatase 112 Total Protein 6.4 Albumin 2.0 L Globulin 4.4 H Albumin/Globulin Ratio 0.5 L DS: Diagnosis - Discharge Diagnosis (1) Dehydration Status: Acute (2) Nausea and vomiting Status: Acute (3) Cirrhosis of liver with ascites Status: Acute (4) Pleural effusion associated with hepatic disorder Status: Acute (5) Hypokalemia Status: Acute (6) Coronary artery disease Status: Acute (7) History of coronary artery bypass graft x 3 Status: Acute (8) Rheumatoid arthritis Status: Acute (9) Goiter Status: Acute (10) Smoking history Status: Acute Discharge/Transfer (Swing Bed) - Plan of Care Certification: I have reviewed and agree with this resident's plan of care. I certify that post-hospital half-way facility services are required to be given on an inpatient basis because of the need for half-way care on a continuing basis for the condition(s) for which he/she is receiving inpatient ho
[2018-05-19 09:24] LABS: Ammonia 54 umol/L (19-54); INR 1.29 (0.9-1.1); Prothrombin Time 13.2 seconds (9.4-11.8)
[2018-05-19 09:45] LABS: Ferritin 59 ng/mL (8-388)
[2018-05-19 13:07] LABS: Hepatitis C Antibody <0.1 s/co ratio (0.0-0.9)
--- NOTE | 2018-05-19 13:25 | P.PCN_ITS ---
[facility] Procedure Note Procedure Note:: Gastroenterology Consultation Date of Service-May 19, 2018 History of Present Illness: Mrs. Starks is a 62-year-old female who is hospitalized with newly diagnosed cirrhosis with ascites. GI is consulted for further evaluation. The patient has no former history of abnormal liver function or cirrhosis. She reports no alcohol or family history of liver disease. The patient does have a history of morbid obesity. There is no detailed H&P in the chart. The patient has had increased abdominal girth and swelling for 2 weeks with some lower extremity swelling. The patient did have colonoscopy 2010 (Marck Avendaño M.D.) and had 7 polyps removed. It was recommended repeat in 2 years which she has not done. The patient has had abdominal discomfort. Her labs revealed AST 98, ALT 45, total bilirubin 1.5, ammonia level 54, amylase 21 and meld score 11. Her hemoglobin and hematocrit were 10.8 and 35.7 with platelet count 119,000. She has negative viral hepatitis serologies. Past Medical History: See chart Past Surgical History: See chart Medications: See chart ALLERGIES: No known drug allergies Social History: No history of alcohol abuse Family History: Noncontributory Review of Systems: Physical Exam: Physical Examination: Gen.: The patient is a well-developed well-nourished individual in no acute distress HEENT: Normocephalic/atraumatic extraocular movements are intact anicteric Neck: Supple no lymphadenopathy Chest: Clear to auscultation Cardiovascular: Regular rate and rhythm with systolic murmur Abdomen: Normoactive bowel sounds soft, abdominal distention with ballotable liver and obvious ascites. There is some hepatosplenomegaly Extremities: 1+ edema edema Neurologic: Some asterixis present Labs: See above Radiology: CT scan abdomen and pelvis shows irregular margin of liver with cirrhosis and diffuse ascites. Splenomegaly is present. The gallbladder was distended. There is pelvic ascites and evidence of portal hypertension. There is some thickening of the colon at the splenic flexure. Impression/Plan: 1. Mildly decompensated cirrhosis (unknown etiology yet but probably not cryptogenic). I suspect Alberto/nonalcoholic fatty liver disease. The patient does have ascites. I would advise diagnostic/therapeutic paracentesis and send fluid for cell count and differential, culture, albumin and protein. We will get the SAAG (serum to ascites albumin gradient). I will place the patient on Aldactone (potassium sparing and she was hypokalemic). The patient does have some clinical encephalopathy and I will place her on lactulose and Xifaxan. She does have some constipation as well. I will send serologies for autoimmune hepatitis and inherited forms of liver disease. I will send alpha-fetoprotein. The patient's MELD score is 11 (model for end-stage liver disease). She will need to follow-up in the office after discharge. At that time, we will likely discussed doing EGD (exclusion of esophageal varices) and colonoscopy history of prior adenomatous polyps.
[2018-05-19 15:28] LABS: Appearance,Body Fld. Slightly hazy; RBC,Body Fluid < 10 cells/uL (< 10 X 10^3); TNC,Body Fluid 105 cells/uL (< 1000); Volume,Body Fld. 48 mL
--- NOTE | 2018-05-19 15:58 | HMH.PHAINT ---
ORDER FROM DR BUNN WAS WRITTEN TO GIVE 25 GM ALBUMIN FOR EACH LITER ABOVE 5 L TAKEN OFF DURING PARACENTESIS. NURSE REPORTS THAT 4200 ML (4.2 L) WAS TAKEN OFF; THEREFORE NO ALBUMIN HAS BEEN GIVEN. CALLED ALONSO HUTTON TO MAKE SURE DR BUNN KNOWS HOW MUCH WAS REMOVED AND THAT PATIENT DID NOT RECEIVE ALBUMIN.
[2018-05-19 16:01] LABS: Mononuclear WBCs,Body Fluid 99 %; Polynuclear WBC,Body Fluid 1 %; Source, Body Fld. Thoracentesis Fluid
--- NOTE | 2018-05-19 16:08 | PC.NURSE ---
patient laying in bed awake. ice and trash done at this time. no other needs voiced at this time.
--- NOTE | 2018-05-19 17:50 | PC.NURSE ---
PATIENT HAD A PARACENTISIS TODAY WITH 4200 ML REMOVED, AND PATIENT TOLERATED WELL. PATIENT HAS BEEN UP TO CHAIR TODAY, SHE HAD SEVERAL LARGE LOOSE BOWEL MOVEMENTS TODAY WITH NO COMPLAINT OF N/V. VITAL SIGNS STABLE, GOT ORDER FOR NEW DIET, SHE STATES SHE FEELS HUNGRY. DENIES ANY PAIN, CALL MUNOZ IN REACH, BED IN LOWEST POSITION , WILL CONTINUE TO MONITOR.
--- NOTE | 2018-05-19 18:59 | PC.NURSE ---
REPORT GIVEN TO DELILAH Lynn RN
[2018-05-20] VITALS (11 sets, daily range): BP systolic 109–152; BP diastolic 60–86; PULSE 60–86; RESP 18–20; TEMP 36.5–37.9; O2SAT 91–94; BMI 31.6
--- NOTE | 2018-05-20 03:17 | PC.NURSE ---
Addendum entered by Indy Marquez RN 05/20/18 04:50: Dressing noted RLQ of pt's ABD d/t paracentesis on previous shift. Gauze/tape dressing C/D/I with faint bruising noted surrounding site. Original Note: Pt is A&Ox3 and has ambulated to with staff SBA x1, pt tolerates well. Pt has denied any pain this shift. Pt has c/o nausea 1x this shift, medicated per JUN and pt slept very well afterwards. Lungs are CTA, pt continues on O2 of 2Lper NC with sat's 94-95% this shift. RA was trialled by RT this shift and pt's sat's dropped to 88%, NC reapplied. Pt does not use O2 at home and reports a h/o asthma. Pt has had 2 loose BM on the previous shift and both were attempted to be collected however stool was mixed in urine. Pt and staff aware of uncollected stool sample, new hat placed at the back of commode and pt instructed to sit towards the front in attempt to not contaminate specimen with urine. +1 pitting edema noted to LLE. ABD is large, round, distended, and tender to lower quads. Hyperactive BS noted x4 quads. NSR w/ prolonged QT noted on telemetry this shift. VSS, call light within reach, will continue to monitor.
[2018-05-20 07:15] LABS: Hep A Ab, IgM Negative (Negative); Hepatitis B Core Antibody IgM Negative (Negative); Hepatitis B Surface Antigen Negative (Negative)
--- NOTE | 2018-05-20 07:18 | PC.NURSE ---
REPORT GIVEN TO William ARIAS W/C
[2018-05-20 07:32] LABS: Basophils % 0.5 % (0.1-2.0); Hematocrit 33.7 % (37.0-47.0); Hemoglobin 10.2 g/dL (12.2-16.2); Lymphocytes # 0.7 K/mm3 (0.7-4.5); Lymphocytes % 16.1 % (10-50); Mean Corpuscular HGB Conc 30.3 g/dL (31.8-35.4); Mean Corpuscular Hemoglobin 25.7 pg (27.0-31.2); Mean Corpuscular Volume 84.8 fl (81-99); Mean Platelet Volume 9.1 fl (7.4-10.4); Monocytes # 0.3 K/mm3 (0.1-1.0); Monocytes % 6.7 % (1.7-9.3); Neutrophils # 3.3 K/mm3 (1.8-7.8); Neutrophils % 75.7 % (37.0-80.0); Platelet Count 117 K/mm3 (142-424); Red Blood Count 3.97 M/mm3 (4.20-5.40); Red Cell Distribution Width 22.5 % (11.5-17.5); White Blood Count 4.4 K/mm3 (4.8-10.8)
--- NOTE | 2018-05-20 07:42 | PC.NURSE ---
report given to Laurita Santana RN
[2018-05-20 07:46] LABS: Alanine Aminotransferase 40 U/L (12-78); Albumin/Globulin Ratio 0.5 (1.1-1.8); Alkaline Phosphatase 116 U/L (46-116); Anion Gap 12.6 mEq/L (5-15); Aspartate Amino Transferase 95 U/L (15-37); Bilirubin,Total 1.8 mg/dL (0.2-1.0); Blood Urea Nitrogen 8 mg/dL (7-18); Calcium 8.5 mg/dL (8.5-10.1); Carbon Dioxide 24 mmol/L (21.0-32.0); Chloride 103 mmol/L (98-107); Creatinine Clearance Estimated 76 mL/min (50-200); Creatinine,Serum 0.83 mg/dL (0.55-1.02); Estimated Glomerular Filt Rate 69 ml/min (>60); GFR (African American) 84 ML/MIN (>60); Globulin 4.3 gm/dl (1.3-3.2); Potassium 4.6 mmoL/L (3.5-5.1); Sodium 135 mmol/L (136-145); Total Protein,Serum 6.3 gm/dL (6.4-8.2)
[2018-05-20 07:52] LABS: Glucose 114 mg/dL (74-106)
[2018-05-20 10:50] LABS: Adenovirus F 40/41, stool Not Detected (NotDetected); Astrovirus Not Detected (NotDetected); Campylobacter Not Detected (NotDetected); Cryptosporidium Not Detected (NotDetected); Cyclospora Cayetanesis Not Detected (NotDetected); Entamoeba histolytica Not Detected (NotDetected); Enteroaggregative E coli Not Detected (NotDetected); Enteropathogenic E coli Not Detected (NotDetected); Enterotoxigenic E coli Not Detected (NotDetected); Giardia lamblia Not Detected (NotDetected); Norovirus Not Detected (NotDetected); Plesimonas Shigalloides, PCR Not Detected (NotDetected); Rotavirus A Not Detected (NotDetected); Salmonella, PCR Not Detected (NotDetected); Sapovirus Not Detected (NotDetected); Shiga-like toxin E coli Not Detected (NotDetected); Shigella Enterovasive E coli Not Detected (NotDetected); Vibrio Cholerae Not Detected (NotDetected); Vibrio, PCR Not Detected (NotDetected); Yersinia Entercolitica, PCR Not Detected (NotDetected)
[2018-05-20 12:53] LABS: Clostridium Difficile A/B, PCR Detected (NotDetected)
[2018-05-20 12:58] LABS: Hepatitis C Antibody <0.1 s/co ratio (0.0-0.9)
--- NOTE | 2018-05-20 12:58 | PC.NURSE ---
helped pt to bathroom then back to bed. Pt watching TV. no other needs expressed @ this time.
[2018-05-20 13:00] LABS: Albumin, Body Fluid 0.6 g/dL (.); Protein, Body Fluid 1.4 g/dL (.)
--- NOTE | 2018-05-20 13:27 | HMH.ACPN2 ---
Internal Medicine - PN: Subj *Date: 05/20/18 *Time: 13:27 Interval history: She feels somewhat better. She does not seem to exhibit encephalopathy today. She can certainly breathe easier. She still has loose stools. PCR has detected Clostridium difficile in the stool. Exam Vital signs and Labs for Last 24 Hours: Temp Pulse Resp BP Pulse Ox 98.4 F 78 20 128/86 94 L 05/20/18 08:00 05/20/18 08:00 05/20/18 08:00 05/20/18 08:00 05/20/18 09:39 Laboratory Results - last 24 hr 05/19/18 09:05: Tumor Marker AFP 3.0, Hepatitis A IgM Ab Negative, Hep Bs Antigen Negative, Hep B Core IgM Ab Negative, Hepatitis C Antibody <0.1 05/19/18 12:40: Fluid Source Thoracentesis fluid, Fluid Volume 48, Fluid Appearance Slightly hazy, Fluid RBC (Auto) < 10, Fld Tot Nucleated Cell 105, Fld Polynuclear WBCs % 1, Fld Mononuclear WBCs % 99 05/19/18 12:40: Fluid Total Protein 1.4, Fluid Albumin 0.6 05/20/18 07:05: WBC 4.4 L, RBC 3.97 L, Hgb 10.2 L, Hct 33.7 L, MCV 84.8, MCH 25.7 L, MCHC 30.3 L, RDW 22.5 H, Plt Count 117 L, MPV 9.1, Neut % (Auto) 75.7, Lymph % (Auto) 16.1, [place] % (Auto) 6.7, Eos % (Auto) 1.0, Baso % (Auto) 0.5, Neut # (Auto) 3.3, Lymph # (Auto) 0.7, [place] # (Auto) 0.3, Eos # (Auto) 0.0, Baso # (Auto) 0.0 05/20/18 07:05: Sodium 135 L, Potassium 4.6, Chloride 103, Carbon Dioxide 24, Anion Gap 12.6, BUN 8, Creatinine 0.83, Estimated Creat Clear 76, Estimated GFR 69, Est GFR ( Amer) 84, Glucose 114 H, Calcium 8.5, Total Bilirubin 1.8 H, AST 95 H, ALT 40, Alkaline Phosphatase 116, Total Protein 6.3 L, Albumin 2.0 L, Globulin 4.3 H, Albumin/Globulin Ratio 0.5 L 05/20/18 10:45: Stl Aeromonas (PCR) Not detected, Stl C. cayetanensis PCR Not detected, Stool Rotavirus (PCR) Not detected, Stl Adenov F 40/41 PCR Not detected, Stool Astrovirus (PCR) Not detected, Stool Campylobacter PCR Not detected, Stl C.difficile Tox PCR Detected A, Stool Cryptosporidium PCR Not detected, Stl E.coli Shiga Tox PCR Not detected, Stool E coli O157 PCR Not detected, Stl Enterotoxigenic E PCR Not detected, Stool EPEC (PCR) Not detected, Stool EAEC (PCR) Not detected, Stl E. histolytica PCR Not detected, Stool Giardia Lamblia PCR Not detected, Stool Salmonella PCR Not detected, Stool Sapovirus (PCR) Not detected, Stl P. shigelloides PCR Not detected, Stl Shigella/EIEC PCR Not detected, St Y.enterocolitica PCR Not detected, Stool Vibrio (PCR) Not detected, Stl Vibrio cholerae PCR Not detected, Stl Norovirus GI/GII PCR Not detected I & O for Last 24 hours: Intake & Output 05/18/18 05/19/18 05/20/18 05/21/18 11:59 11:59 11:59 11:59 Intake Total 2073 2382 / 238 940 / 940 Output Total 300 / 300 Balance 2073 / 2081 940 / 940 Weight 185 lb 9 oz 194 lb 4 oz 185 lb 4 oz Microbiology Reports for the Last 24 Hours: Microbiology 05/19/18 12:40 Thoracic Fluid Gram Stain - Final 05/19/18 12:40 Thoracic Fluid Body Fluid Culture - Preliminary NO GROWTH AFTER 24 HOURS - Constitutional no acute distress - *Routine HEENT Exam Head: Present: normocephalic Eye: Present: PERRL ENT: Present: mucous membranes moist - *Routine Respiratory Exam Comments: Good air movement bilaterally with decreased breath sounds. Few bibasilar rales. - *Routine Cardiovascular Exam Present: RRR - *Routine Abdominal Exam Comments: Still distended but less so. Nontender. - *Routine Extremities Exam Present: edema Comments: 2+ - *Routine Neurological Exam Present: alert, oriented X3 Assessment and Plan (1) Dehydration Current visit: Yes Status: Acute Category: Medical Code(s): E86.0 - Dehydration (2) Nausea and vomiting Current visit: Yes Status: Acute Category: Medical Code(s): R11.2 - Nausea with vomiting, unspecified (3) Cirrhosis of liver with ascites Current visit: Yes Status: Acute Category: Medical Code(s): K74.60 - Unspecified cirrhosis of liver; R18.8 - Other ascit
--- NOTE | 2018-05-20 13:30 | P.PN_ITS ---
Internal Medicine - PN: Subj *Date: 05/20/18 *Time: 13:27 Interval history: She feels somewhat better. She does not seem to exhibit encephalopathy today. She can certainly breathe easier. She still has loose stools. PCR has detected Clostridium difficile in the stool. Exam Vital signs and Labs for Last 24 Hours: Temp Pulse Resp BP Pulse Ox 98.4 F 78 20 128/86 94 L 05/20/18 08:00 05/20/18 08:00 05/20/18 08:00 05/20/18 08:00 05/20/18 09:39 Laboratory Results - last 24 hr 05/19/18 09:05: Tumor Marker AFP 3.0, Hepatitis A IgM Ab Negative, Hep Bs Antigen Negative, Hep B Core IgM Ab Negative, Hepatitis C Antibody <0.1 05/19/18 12:40: Fluid Source Thoracentesis fluid, Fluid Volume 48, Fluid Appearance Slightly hazy, Fluid RBC (Auto) < 10, Fld Tot Nucleated Cell 105, Fld Polynuclear WBCs % 1, Fld Mononuclear WBCs % 99 05/19/18 12:40: Fluid Total Protein 1.4, Fluid Albumin 0.6 05/20/18 07:05: WBC 4.4 L, RBC 3.97 L, Hgb 10.2 L, Hct 33.7 L, MCV 84.8, MCH 25.7 L, MCHC 30.3 L, RDW 22.5 H, Plt Count 117 L, MPV 9.1, Neut % (Auto) 75.7, Lymph % (Auto) 16.1, [place] % (Auto) 6.7, Eos % (Auto) 1.0, Baso % (Auto) 0.5, Neut # (Auto) 3.3, Lymph # (Auto) 0.7, [place] # (Auto) 0.3, Eos # (Auto) 0.0, Baso # (Auto) 0.0 05/20/18 07:05: Sodium 135 L, Potassium 4.6, Chloride 103, Carbon Dioxide 24, Anion Gap 12.6, BUN 8, Creatinine 0.83, Estimated Creat Clear 76, Estimated GFR 69, Est GFR ( Amer) 84, Glucose 114 H, Calcium 8.5, Total Bilirubin 1.8 H , AST 95 H, ALT 40, Alkaline Phosphatase 116, Total Protein 6.3 L, Albumin 2.0 L , Globulin 4.3 H, Albumin/Globulin Ratio 0.5 L 05/20/18 10:45: Stl Aeromonas (PCR) Not detected, Stl C. cayetanensis PCR Not detected, Stool Rotavirus (PCR) Not detected, Stl Adenov F 40/41 PCR Not detected, Stool Astrovirus (PCR) Not detected, Stool Campylobacter PCR Not detected, Stl C.difficile Tox PCR Detected A, Stool Cryptosporidium PCR Not detected, Stl E.coli Shiga Tox PCR Not detected, Stool E coli O157 PCR Not detected, Stl Enterotoxigenic E PCR Not detected, Stool EPEC (PCR) Not detected, Stool EAEC (PCR) Not detected, Stl E. histolytica PCR Not detected, Stool Giardia Lamblia PCR Not detected, Stool Salmonella PCR Not detected, Stool Sapovirus (PCR) Not detected, Stl P. shigelloides PCR Not detected, Stl Shigella/EIEC PCR Not detected, St Y.enterocolitica PCR Not detected, Stool Vibrio (PCR) Not detected, Stl Vibrio cholerae PCR Not detected, Stl Norovirus GI/GII PCR Not detected I & O for Last 24 hours: Intake & Output 05/18/18 05/19/18 05/20/18 05/21/18 11:59 11:59 11:59 11:59 Intake Total 2073 238 / 238 940 / 940 Output Total 300 / 300 Balance 2073 / 2081 940 / 940 Weight 185 lb 9 oz 194 lb 4 oz 185 lb 4 oz Microbiology Reports for the Last 24 Hours: Microbiology 05/19/18 12:40 Thoracic Fluid Gram Stain - Final 05/19/18 12:40 Thoracic Fluid Body Fluid Culture - Preliminary NO GROWTH AFTER 24 HOURS - Constitutional no acute distress - *Routine HEENT Exam Head: Present: normocephalic Eye: Present: PERRL ENT: Present: mucous membranes moist - *Routine Respiratory Exam Comments: Good air movement bilaterally with decreased breath sounds. Few bibasilar rales. - *Routine Cardiovascular Exam Present: RRR - *Routine Abdominal Exam Comments: Still distended but less so. Nontender. - *Rou
--- NOTE | 2018-05-20 18:16 | PC.NURSE ---
Pt stated this morning she wanted to wait on her bath. I told her to let me know when she was ready and I would set her up. I asked her several times during this shift and told her when she was ready to let me know. This last time I asked she said she really needed a nap first. RN notified.
--- NOTE | 2018-05-20 19:25 | PC.NURSE ---
PT FULL CODE, REPORT RECEIVED FROM CAMI GRUBBS.
[2018-05-20 19:31] LABS: Actin (Smooth Muscle) Antibody 13 Units (0-19)
[2018-05-21] VITALS (12 sets, daily range): BP systolic 102–143; BP diastolic 52–81; PULSE 62–84; RESP 17–18; TEMP 36.6–37.4; O2SAT 90–94; BMI 31.8
--- NOTE | 2018-05-21 05:38 | PC.NURSE ---
PT CONTINUES TO BE ALERT AND ORIENTED X4. RESPIRATIONS EVEN AND UNLABORED ON 1L NC. BREATH SOUNDS CLEAR. PT GIVEN AN INCENTIVE SPIROMITER MENTIONED IN DR. BARRY'S NOTE FROM YESTERDAY. PT IV WAS LEAKING. NEW SITE. PATENT AND SECURE IN LAC. PT C/O NAUSEA THIS SHIFT, PRN MEDS GIVEN. NO C/O PAIN. PT HAS HAD BM THIS SHIFT. NO A.M. LABS ORDERED OF THIS TIME. PT STABLE. WILL CONTINUE TO MONITOR. REPORT TO BE GIVEN TO ONCOMING NURSE.
--- NOTE | 2018-05-21 07:06 | PC.NURSE ---
REPORT TO CAMI GRUBBS.
--- NOTE | 2018-05-21 07:28 | PC.NURSE ---
REPORT GIVEN TO William ARIAS W/C
--- NOTE | 2018-05-21 09:14 | HMH.ACPN2 ---
Internal Medicine - PN: Subj *Date: 05/21/18 *Time: 09:14 Interval history: Complains of nausea this morning. Lungs are clear. Weight is noted. Exam Vital signs and Labs for Last 24 Hours: Temp Pulse Resp BP Pulse Ox 99.1 F 82 18 136/72 93 L 05/21/18 07:58 05/21/18 07:58 05/21/18 07:58 05/21/18 07:58 05/21/18 07:58 Laboratory Results - last 24 hr 05/19/18 09:05: Tumor Marker AFP 3.0, Anti-Smooth Muscle Ab 13, Hepatitis A IgM Ab Negative, Hep Bs Antigen Negative, Hep B Core IgM Ab Negative, Hepatitis C Antibody <0.1 05/19/18 12:40: Fluid Total Protein 1.4, Fluid Albumin 0.6 05/20/18 10:45: Stl Aeromonas (PCR) Not detected, Stl C. cayetanensis PCR Not detected, Stool Rotavirus (PCR) Not detected, Stl Adenov F 40/41 PCR Not detected, Stool Astrovirus (PCR) Not detected, Stool Campylobacter PCR Not detected, Stl C.difficile Tox PCR Detected A, Stool Cryptosporidium PCR Not detected, Stl E.coli Shiga Tox PCR Not detected, Stool E coli O157 PCR Not detected, Stl Enterotoxigenic E PCR Not detected, Stool EPEC (PCR) Not detected, Stool EAEC (PCR) Not detected, Stl E. histolytica PCR Not detected, Stool Giardia Lamblia PCR Not detected, Stool Salmonella PCR Not detected, Stool Sapovirus (PCR) Not detected, Stl P. shigelloides PCR Not detected, Stl Shigella/EIEC PCR Not detected, St Y.enterocolitica PCR Not detected, Stool Vibrio (PCR) Not detected, Stl Vibrio cholerae PCR Not detected, Stl Norovirus GI/GII PCR Not detected I & O for Last 24 hours: Intake & Output 05/18/18 05/19/18 05/20/18 05/21/18 11:59 11:59 11:59 11:59 Intake Total 2073 / 238 940 / 940 735 / 735 Output Total 300 / 300 480 / 480 Balance 2073 940 / 940 255 / 255 Weight 185 lb 9 oz 194 lb 4 oz 185 lb 4 oz 186 lb 5 oz Microbiology Reports for the Last 24 Hours: Microbiology 05/20/18 22:30 Sputum - Expectorated Sputum Gram Stain - Final 05/20/18 22:30 Sputum - Expectorated Sputum Sputum Culture - Preliminary 05/19/18 12:40 Thoracic Fluid Gram Stain - Final 05/19/18 12:40 Thoracic Fluid Body Fluid Culture - Preliminary NO GROWTH AFTER 24 HOURS - Constitutional mild distress - *Routine HEENT Exam Head: Present: normocephalic Eye: Present: PERRL ENT: Present: mucous membranes moist - *Routine Cardiovascular Exam Present: RRR - *Routine Abdominal Exam Present: distended - *Routine Extremities Exam Present: edema Comments: 1+ - *Routine Neurological Exam Present: oriented X3 Assessment and Plan (1) Dehydration Current visit: Yes Status: Acute Category: Medical Code(s): E86.0 - Dehydration (2) Nausea and vomiting Current visit: Yes Status: Acute Category: Medical Code(s): R11.2 - Nausea with vomiting, unspecified (3) Cirrhosis of liver with ascites Current visit: Yes Status: Acute Category: Medical Code(s): K74.60 - Unspecified cirrhosis of liver; R18.8 - Other ascites (4) Pleural effusion associated with hepatic disorder Current visit: Yes Status: Acute Category: Medical Code(s): K76.9 - Liver disease, unspecified; J91.8 - Pleural effusion in other conditions classified elsewhere (5) Clostridium difficile enterocolitis Current visit: Yes Status: Acute Category: Medical Code(s): A04.72 - Enterocolitis due to Clostridium difficile, not specified as recurrent (6) Hypokalemia Current visit: Yes Status: Acute Category: Medical Code(s): E87.6 - Hypokalemia (7) Coronary artery disease Current visit: Yes Status: Acute Category: Medical Code(s): I25.10 - Atherosclerotic heart disease of [place] coronary artery without angina pectoris (8) History of coronary artery bypass graft x 3 Current visit: Yes Status: Acute Category: Surgical Code(s): Z95.1 - Presence of aortocoronary bypass graft (9) Rheumatoid arthritis Current visit: Yes Status: Acute Category: Medical Code(s): M0
[2018-05-21 09:50] LABS: Basophils % 0.1 % (0.1-2.0); Eosinophils # 0.1 K/mm3 (0.0-0.4); Eosinophils % 1.1 % (0.1-12.0); Hematocrit 33.4 % (37.0-47.0); Hemoglobin 10.6 g/dL (12.2-16.2); Lymphocytes # 0.6 K/mm3 (0.7-4.5); Lymphocytes % 14.4 % (10-50); Mean Corpuscular HGB Conc 31.7 g/dL (31.8-35.4); Mean Corpuscular Hemoglobin 26.8 pg (27.0-31.2); Mean Corpuscular Volume 84.7 fl (81-99); Mean Platelet Volume 9.4 fl (7.4-10.4); Monocytes # 0.3 K/mm3 (0.1-1.0); Monocytes % 7.5 % (1.7-9.3); Neutrophils # 3.2 K/mm3 (1.8-7.8); Neutrophils % 76.9 % (37.0-80.0); Platelet Count 103 K/mm3 (142-424); Red Blood Count 3.94 M/mm3 (4.20-5.40); Red Cell Distribution Width 22.5 % (11.5-17.5); White Blood Count 4.2 K/mm3 (4.8-10.8)
--- NOTE | 2018-05-21 10:34 | PC.NURSE ---
trash was taken out, ice water was given. no other needs at this time.
--- NOTE | 2018-05-21 16:08 | PC.NURSE ---
patient is sitting up in bed awake, patient requested hot tea , ice water was given & trash was taken.
--- NOTE | 2018-05-21 18:09 | PC.NURSE ---
ALERT AND ORIENTED X4. UP TO CHAIR FOR MEALS. REFUSED BATH, ENCOURAGED BY STAFF X 2. EDUCATION PROVIDED R/T PERSONAL HYGIENE. DENIES PAIN. C/O NAUSEA X 1 BUT REFUSED MEDICATION, WILL WAIT FOR AWHILE BEFORE I TAKE ANYTHING. LUNGS CTA. PT REMAINS ON O2 1L NC. INCENTIVE SPIROMETER GIVEN AND EDUCATION PROVIDED, PT NEEDS ENCOURAGEMENT. BS ACTIVE IN ALL QUADS. ABDOMEN IS SOFT AND NON-TENDER. 3 EPISODES OF DIARRHEA REPORTED BY PATIENT.VSS. NO DISTRESS NOTED. SAFETY MEASURES IN PLACE, FALL PREVENTION EDUCATION PROVIDED. CALL LIGHT WITHIN REACH. WILL CONTINUE TO MONITOR.
--- NOTE | 2018-05-21 19:15 | PC.NURSE ---
PT FULL CODE, REPORT RECEIVED FROM CAMI GRUBBS.
[2018-05-22] VITALS (9 sets, daily range): BP systolic 111–130; BP diastolic 55–78; PULSE 68–80; RESP 16–19; TEMP 36.7–37.4; O2SAT 93–94; BMI 32.3
--- NOTE | 2018-05-22 04:40 | PC.NURSE ---
PT ALERT AND ORIENTEDX4. SLEPT LONG INTERVALS THIS SHIFT, MUCH BETTER THAN TUESDAY NIGHT. C/O NAUSEA X1 BEGINNING OF SHIFT. PRN REGLAN GIVEN. NO FURTHER C/O NAUSEA OR ANY OTHER PAIN OR DISCOMFORT OF THIS TIME. RESPIRATIONS EVEN AND UNLABORED ON 1L/NC. BREATH SOUNDS CLEAR. IV SECURE AND PATENT, SALINE LOCKED. PT HAS ORDER FOR A.M. LABS TODAY. NO BOWEL MOVEMENTS REPORTED FOR THIS SHIFT THUS FAR. PT STABLE. WILL CONTINUE TO MONITOR. REPORT TO BE GIVEN TO ONCOMING NURSE.
--- NOTE | 2018-05-22 07:02 | PC.NURSE ---
REPORT GIVEN TO CAMI YOUNGBLOOD.
--- NOTE | 2018-05-22 07:19 | PC.NURSE ---
REPORT GIVEN TO Taylor OSULLIVAN W/C
[2018-05-22 08:02] LABS: Alanine Aminotransferase 40 U/L (12-78); Albumin Level 2.2 gm/dL (3.4-5.0); Albumin/Globulin Ratio 0.5 (1.1-1.8); Alkaline Phosphatase 141 U/L (46-116); Anion Gap 12.7 mEq/L (5-15); Aspartate Amino Transferase 81 U/L (15-37); Bilirubin,Total 1.7 mg/dL (0.2-1.0); Blood Urea Nitrogen 11 mg/dL (7-18); Calcium 8.7 mg/dL (8.5-10.1); Carbon Dioxide 24 mmol/L (21.0-32.0); Chloride 100 mmol/L (98-107); Creatinine Clearance Estimated 78 mL/min (50-200); Creatinine,Serum 0.87 mg/dL (0.55-1.02); Estimated Glomerular Filt Rate 66 ml/min (>60); GFR (African American) 80 ML/MIN (>60); Globulin 4.8 gm/dl (1.3-3.2); Potassium 4.7 mmoL/L (3.5-5.1); Sodium 132 mmol/L (136-145)
[2018-05-22 08:12] LABS: Glucose 118 mg/dL (74-106)
--- NOTE | 2018-05-22 08:44 | HMH.ACPN2 ---
Internal Medicine - PN: Subj Interval history: Patient states that she feels a little rough. She is tender in the abdomen. She feels like the fluid is building up again. She is somewhat short of breath. She does have abdominal pain as well. She is nauseated with a eating and has been eating very normal. Her kidneys are functioning well. She continues to have diarrhea. Exam Vital signs and Labs for Last 24 Hours: Temp Pulse Resp BP Pulse Ox 98.6 F 72 18 130/69 94 L 05/22/18 08:00 05/22/18 08:00 05/22/18 08:00 05/22/18 08:00 05/22/18 08:00 Laboratory Results - last 24 hr 05/21/18 09:35: WBC 4.2 L, RBC 3.94 L, Hgb 10.6 L, Hct 33.4 L, MCV 84.7, MCH 26.8 L, MCHC 31.7 L, RDW 22.5 H, Plt Count 103 L, MPV 9.4, Neut % (Auto) 76.9, Lymph % (Auto) 14.4, [place] % (Auto) 7.5, Eos % (Auto) 1.1, Baso % (Auto) 0.1, Neut # (Auto) 3.2, Lymph # (Auto) 0.6 L, [place] # (Auto) 0.3, Eos # (Auto) 0.1, Baso # (Auto) 0.0 05/22/18 07:40: Sodium 132 L, Potassium 4.7, Chloride 100, Carbon Dioxide 24, Anion Gap 12.7, BUN 11 D, Creatinine 0.87, Estimated Creat Clear 78, Estimated GFR 66, Est GFR ( Amer) 80, Glucose 118 H, Calcium 8.7, Total Bilirubin 1.7 H, AST 81 H, ALT 40, Alkaline Phosphatase 141 H, Total Protein 7.0, Albumin 2.2 L, Globulin 4.8 H, Albumin/Globulin Ratio 0.5 L I & O for Last 24 hours: Intake & Output 05/19/18 05/20/18 05/21/18 05/22/18 11:59 11:59 11:59 11:59 Intake Total 2382 / 2382 940 / 940 735 / 735 970 / 970 Output Total 300 / 300 480 / 480 480 / 480 Balance 2081 / 2081 940 / 940 255 / 255 490 / 490 Weight 194 lb 4 oz 185 lb 4 oz 186 lb 5 oz 189 lb 2 oz Microbiology Reports for the Last 24 Hours: Microbiology 05/20/18 22:30 Sputum - Expectorated Sputum Gram Stain - Final 05/20/18 22:30 Sputum - Expectorated Sputum Sputum Culture - Preliminary 05/19/18 12:40 Thoracic Fluid Gram Stain - Final 05/19/18 12:40 Thoracic Fluid Body Fluid Culture - Preliminary NO GROWTH AFTER 48 HOURS - Constitutional no acute distress Comments: Sitting in comfort chair at bedside - *Routine Respiratory Exam Present: CTA bilaterally (Anteriorly and posteriorly) - *Routine Cardiovascular Exam Present: RRR (Monitor showing sinus rhythm) - *Routine Abdominal Exam Comments: Hyperactive bowel sounds. Abdomen is distended, tender in the left quads, and firm. - *Routine Extremities Exam Present: edema - *Routine Neurological Exam Present: alert, oriented X3 Assessment and Plan (1) Dehydration Current visit: Yes Status: Acute Category: Medical Code(s): E86.0 - Dehydration (2) Nausea and vomiting Current visit: Yes Status: Acute Category: Medical Code(s): R11.2 - Nausea with vomiting, unspecified (3) Cirrhosis of liver with ascites Current visit: Yes Status: Acute Category: Medical Code(s): K74.60 - Unspecified cirrhosis of liver; R18.8 - Other ascites (4) Pleural effusion associated with hepatic disorder Current visit: Yes Status: Acute Category: Medical Code(s): K76.9 - Liver disease, unspecified; J91.8 - Pleural effusion in other conditions classified elsewhere (5) Clostridium difficile enterocolitis Current visit: Yes Status: Acute Category: Medical Code(s): A04.72 - Enterocolitis due to Clostridium difficile, not specified as recurrent (6) Hypokalemia Current visit: Yes Status: Acute Category: Medical Code(s): E87.6 - Hypokalemia (7) Coronary artery disease Current visit: Yes Status: Acute Category: Medical Code(s): I25.10 - Atherosclerotic heart disease of [place] coronary artery without angina pectoris (8) History of coronary artery bypass graft x 3 Current visit: Yes Status: Acute Category: Surgical Code(s): Z95.1 - Presence of aortocoronary bypass graft (9) Rheumatoid arthritis Current visit: Yes Status: Acute Category: Medical Code(s): M06.9 - Rheumatoid arthritis, un
--- NOTE | 2018-05-22 10:50 | PC.NURSE ---
COURTESY JESSE AT THIS TIME. PT WAS LYING IN BED. NO NEEDS VOICED.
--- NOTE | 2018-05-22 11:15 | HMH.CONS ---
*Admission Date: 05/17/18 *Chief complaint: Ascites *History of present illness: Follow up Ascites/Cirrhosis. Pt was seen on Tuesday by Dr. uGo and did have Paracentesis with 4200 ml removed but no Albumin replacement was ordered. The pt has had recalculation and is c/o tightness and some SOB from ABD pressure. She was dx with C-Diff as well. she has had some liver dz autoantibodies drawn including ASMA which was neg. Her viral Hepatitis panel was neg. [facility] History Medical History: Reports:: Hyperlipidemia, Hypertension, Myocardial Infarction (x4) Denies:: Cancer, Diabetes Mellitus Type 1, Diabetes Mellitus Type 2 Have you ever received a pneumonia vaccine?: No (wants) Have you received a flu vaccine this season?: No (wants) Other Medical History: Reports: Anemia, Arthritis (rheumotoid arthritis), Sinus Problems Other Surgeries: Yes: Colonoscopy, Other (EGD) - *Social History Alcohol Intake: never Occupational Status: retired Travel in the last 8 weeks: None - Psychiatric History Expresses thoughts of harming self/others: None Suicide Plan Description: No Plan Review of Systems - Review of Systems Review of systems:: pertinent systems reviewed and negative unless documented below - Constitutional Reports fatigue, Reports lack of energy - *Cardiovascular Reports shortness of breath - *Respiratory Reports shortness of breath - *Gastrointestinal Reports bloating, Reports loose stools, Reports constant urge to pass stool Meds Home Medications Medication Instructions Recorded Confirmed Type Albuterol Sulfate [Albuterol HFA 2 puffs IH Q6HP PRN 05/17/18 05/17/18 History Inhaler] Amiodarone HCl 200 mg PO DAILY 05/17/18 05/17/18 History Aspirin [Aspirin 81mg EC Tab] 81 mg PO DAILY 05/17/18 05/17/18 History Atorvastatin Calcium [Atorvastatin 40 mg PO HS 05/17/18 05/17/18 History 40mg Tab] Cetirizine HCl [Zyrtec] 10 mg PO DAILYP PRN 05/17/18 05/17/18 History Citalopram Hydrobromide [Celexa 20 mg PO DAILY 05/17/18 05/17/18 History 20mg Tablet] Codeine/Butalbital/ASA/Caffein 1 each PO QIDP PRN 05/17/18 05/17/18 History [Fiorinal-Cod [id number] Cap] Diclofenac Epolamine [Flector] 1 patch TD BIDP PRN 05/17/18 05/17/18 History Esomeprazole Magnesium [Nexium] 20 mg PO BID 05/17/18 05/17/18 History Ferrous Sulfate 325 mg PO DAILY 05/17/18 05/17/18 History Folic Acid [Folic Acid 1mg tablet] 1 mg PO DAILY 05/17/18 05/17/18 History Furosemide [Lasix 20mg tab] 20 mg PO DAILY 05/17/18 05/17/18 History Gabapentin [Gabapentin 300mg Cap] 300 mg PO TID 05/17/18 05/17/18 History Ipratropium/Albuterol Sulfate 3 ml IH QIDP PRN 05/17/18 05/17/18 History [Duoneb 3mL neb] L.acidoph,Paracasei, B.lactis 1 each PO DAILY 05/17/18 05/17/18 History [Probiotic] LORazepam [Lorazepam 0.5mg Tablet] 0.5 mg PO TIDP PRN 05/17/18 05/17/18 History Metoprolol Succinate 25 mg PO DAILY 05/17/18 05/17/18 History Nitroglycerin [Nitrostat 0.4mg SL 0.4 mg SL Q5MINP PRN 05/17/18 05/17/18 History Tablet] [place]-3 Fatty Acids/Fish Oil 1 each PO DAILY 05/17/18 05/17/18 History [[place] 3 Fish Oil Softgel] Potassium Chloride [Klor-con 20 20 meq PO BID 05/17/18 05/17/18 History mEq tablet] Triamterene/Hydrochlorothiazid 1 tab PO DAILY 05/17/18 05/17/18 History [Maxzide 37.5 mg-25 mg Tablet] Ubidecarenone [Co Q-10] 10 mg PO DAILY 05/17/18 05/17/18 History metHOTREXate sodium [Trexall] 15 mg PO .[id number] 05/17/18 05/17/18 History Allergies Allergy/AdvReac Type Severity Reaction Status Date / Time morphine Allergy Severe Hallucinati Verified 05/17/18 13:00 ng Penicillins Allergy Severe Anaphylaxis Verified 05/17/18 14:13 COFFEE BEANS Allergy Unknown HISTAMINE Uncoded 04/05/17 14:43 RELEASE-DIFF BREATHING FISH ONLY Allergy Unknown HISTAMINE Uncoded 04/05/17 14:43 RELEASE-DIFF BREATHING GARLIC Allergy Unknown VOMITING/DI Uncoded 04/05/17 14:43 ARRHEA Promethazine Allergy Unknown
--- NOTE | 2018-05-22 11:19 | P.CONS_ITS ---
*Admission Date: 05/17/18 *Chief complaint: Ascites *History of present illness: Follow up Ascites/Cirrhosis. Pt was seen on Tuesday by Dr. Guo and did have Paracentesis with 4200 ml removed but no Albumin replacement was ordered. The pt has had recalculation and is c/o tightness and some SOB from ABD pressure. She was dx with C-Diff as well. she has had some liver dz autoantibodies drawn including ASMA which was neg. Her viral Hepatitis panel was neg. [facility] History Medical History: Reports:: Hyperlipidemia, Hypertension, Myocardial Infarction (x4) Denies:: Cancer, Diabetes Mellitus Type 1, Diabetes Mellitus Type 2 Have you ever received a pneumonia vaccine?: No (wants) Have you received a flu vaccine this season?: No (wants) Other Medical History: Reports: Anemia, Arthritis (rheumotoid arthritis), Sinus Problems Other Surgeries: Yes: Colonoscopy, Other (EGD) - *Social History Alcohol Intake: never Occupational Status: retired Travel in the last 8 weeks: None - Psychiatric History Expresses thoughts of harming self/others: None Suicide Plan Description: No Plan Review of Systems - Review of Systems Review of systems:: pertinent systems reviewed and negative unless documented below - Constitutional Reports fatigue, Reports lack of energy - *Cardiovascular Reports shortness of breath - *Respiratory Reports shortness of breath - *Gastrointestinal Reports bloating, Reports loose stools, Reports constant urge to pass stool Meds Home Medications Medication Instructions Recorded Confirmed Type Albuterol Sulfate [Albuterol HFA 2 puffs IH Q6HP PRN 05/17/18 05/17/18 History Inhaler] Amiodarone HCl 200 mg PO DAILY 05/17/18 05/17/18 History Aspirin [Aspirin 81mg EC Tab] 81 mg PO DAILY 05/17/18 05/17/18 History Atorvastatin Calcium [Atorvastatin 40 mg PO HS 05/17/18 05/17/18 History 40mg Tab] Cetirizine HCl [Zyrtec] 10 mg PO DAILYP PRN 05/17/18 05/17/18 History Citalopram Hydrobromide [Celexa 20 mg PO DAILY 05/17/18 05/17/18 History 20mg Tablet] Codeine/Butalbital/ASA/Caffein 1 each PO QIDP PRN 05/17/18 05/17/18 History [Fiorinal-Cod [id number] Cap] Diclofenac Epolamine [Flector] 1 patch TD BIDP PRN 05/17/18 05/17/18 History Esomeprazole Magnesium [Nexium] 20 mg PO BID 05/17/18 05/17/18 History Ferrous Sulfate 325 mg PO DAILY 05/17/18 05/17/18 History Folic Acid [Folic Acid 1mg tablet] 1 mg PO DAILY 05/17/18 05/17/18 History Furosemide [Lasix 20mg tab] 20 mg PO DAILY 05/17/18 05/17/18 History Gabapentin [Gabapentin 300mg Cap] 300 mg PO TID 05/17/18 05/17/18 History Ipratropium/Albuterol Sulfate 3 ml IH QIDP PRN 05/17/18 05/17/18 History [Duoneb 3mL neb] L.acidoph,Paracasei, B.lactis 1 each PO DAILY 05/17/18 05/17/18 History [Probiotic] LORazepam [Lorazepam 0.5mg Tablet] 0.5 mg PO TIDP PRN 05/17/18 05/17/18 History Metoprolol Succinate 25 mg PO DAILY 05/17/18 05/17/18 History Nitroglycerin [Nitrostat 0.4mg SL 0.4 mg SL Q5MINP PRN 05/17/18 05/17/18 History Tablet] Asher-3 Fatty Acids/Fish Oil 1 each PO DAILY 05/17/18 05/17/18 History [Asher 3 Fish Oil Softgel] Potassium Chloride [Klor-con 20 20 meq PO BID 05/17/18 05/17/18 History mEq tablet] Triamterene/Hydrochlorothiazid 1 tab PO DAILY 05/17/18 05/17/18 History [Maxzide 37.5 mg-25 mg Tablet] Ubidecarenone [Co Q-10] 10 mg PO DAILY 05/17/18 05/17/18
--- NOTE | 2018-05-22 11:35 | PC.NURSE ---
PT STATED SHE HAD 3 MODERATE WATERY BOWEL MOVEMENTS. NURSE NOTIFIED.
[2018-05-22 14:16] LABS: Anti-Centromere B Antibodies <0.2 AI (0.0-0.9); Anti-Jo-1 <0.2 AI (0.0-0.9); Anti-Smith Antibody <0.2 AI (0.0-0.9); Antichromatin Antibodies 0.2 AI (0.0-0.9); Antiscleroderma-70 Antibodies <0.2 AI (0.0-0.9); RNP Antibodies 0.6 AI (0.0-0.9); Sjogren's Anti-SS-A <0.2 AI (0.0-0.9); Sjogren's Anti-SS-B <0.2 AI (0.0-0.9)
--- NOTE | 2018-05-22 14:46 | US_ITS ---
US biopsy guidance /Ultrasound guided paracentesis Ordering Physician: Irene Mena MD Patient Age: 63 years: Female HISTORY: Recurrent Ascites paracentesis TECHNIQUE: Ultrasound abdomen with subsequent ultrasound guided paracentesis FINDINGS AND PROCEDURE: ....ULTRASOUND ABDOMEN\SURVEY Fluid collection is seen most evident along the right flank and most accessible just below the liver. best approach for access to perform paracentesis aspiration was performed. Scanning by Dr. Marie .......ULTRASOUND-GUIDED paracentesis Following sterile preparation as well as local skin, & deeper placement of Xylocaine anesthetic a small 2 mm incision was made in the skin. Through this the paracentesis needle was introduced into the abdomen. There was good return of fluid. Overall a total of 4400 cc of clear yellow ascites fluid removed today, Tuesday, May 22, 2018... One of the images obtained today demonstrates the needle pass through the the ascites fluid collection (I would note the fluid removed today This is in addition to the at least 4 L removed on Saturday, May 19, 2018) patient tolerated procedure well. We did have a normal contour right side imaged intermittently to optimize flow from the small residual collections of fluid. .The technologist notified the floor that greater 4 L is removed- and thus albumin was given as per GI team instructions ------ IMPRESSION: Total 4400 cc of clear yellow ascites fluid of today .
--- NOTE | 2018-05-22 15:10 | DIET.NUTRFU ---
PO intakes on low fat 2 gram sodium diet 50-75% avg. Weight gain from 185 lbs to 189 lbs, 4 lb gain. Patient has undergone a second paracentesis with fluid removed. She is to receive albumin. Discussed importance of high protein, low sodium diet. Positive for c diff and pt does not like yogurt. recommend oral probiotics. Will supplement diet with protein powder.
--- NOTE | 2018-05-22 18:04 | PC.NURSE ---
No change since morning biophysical. patient has not had any complaints of pain, had one episode of nausea medication per mar was tolerated well. Patient had a paracentesis performed no drainage noted from site, and its covered with 2x2s and tape at this time. VSS, patient has no complaints at this time. will continue to monitor.
--- NOTE | 2018-05-22 19:17 | PC.NURSE ---
report given to rashid
[2018-05-23] VITALS (10 sets, daily range): BP systolic 107–121; BP diastolic 49–71; PULSE 50–77; RESP 16–18; TEMP 36.2–37.3; O2SAT 90–95; BMI 30.7
--- NOTE | 2018-05-23 04:21 | PC.NURSE ---
PATIENT SEEMS TO HAVE SLEPT WELL THIS SHIFT. SHE C/O NAUSEA X1 AND RECEIVED REGLAN WHICH HELPED. SHE HAS REMAINED ON ROOM AIR THROUGHOUT SHIFT. NO ACUTE CHANGES SINCE PREVIOUS ASSESSMENT. PATIENT IS CURRENTLY IN BED SLEEPING. NO OTHER PROBLEMS NOTED AT THIS TIME. VSS. WILL CONTINUE TO MONITOR.
--- NOTE | 2018-05-23 07:16 | PC.NURSE ---
REPORT GIVEN TO Iraj MUNOZ RN
[2018-05-23 08:08] LABS: Angiotensin Converting Enzyme 58 U/L (14-82); Anti-DNA (DS) Ab Qn 1 IU/mL (0-9)
[2018-05-23 08:32] LABS: Immunoglobulin A, Qn 715 mg/dL (87-352); Immunoglobulin G, Qn 1526 mg/dL (700-1600)
--- NOTE | 2018-05-23 08:59 | HMH.ACPN2 ---
Internal Medicine - PN: Subj *Date: 05/23/18 *Time: 09:00 Interval history: She still does not feel well. There was another paracentesis yesterday with over 4 L removed. She received albumin IV. She continues with some nausea. She has trace to 1+ leg edema. Exam Vital signs and Labs for Last 24 Hours: Temp Pulse Resp BP Pulse Ox 98.1 F 77 17 121/71 92 L 05/23/18 07:46 05/23/18 07:46 05/23/18 07:46 05/23/18 07:46 05/23/18 07:46 Laboratory Results - last 24 hr 05/19/18 09:05: Angiotensin Convert Enz 58, QIANA Comment Comment, DIANE-1 Antibody <0.2, SS-A Antibody <0.2, SS-B Antibody <0.2, Sm (Mendez) Antibody <0.2, SOFTLINES SUPERVISOR Antibody 0.6, Scl-70 Scleroderma Ab <0.2, Double Strand DNA Ab 1, Chromatin Antibody 0.2, Centromere B Antibody <0.2 I & O for Last 24 hours: Intake & Output 05/20/18 05/21/18 05/22/18 05/23/18 11:59 11:59 11:59 11:59 Intake Total 940 / 940 735 / 735 970 / 970 720 / 720 Output Total 480 / 480 480 / 480 800 / 800 Balance 940 / 940 255 / 255 490 / 490 -80 / -80 Weight 185 lb 4 oz 186 lb 5 oz 189 lb 2 oz 180 lb 5 oz Microbiology Reports for the Last 24 Hours: Microbiology 05/20/18 22:30 Sputum - Expectorated Sputum Gram Stain - Final 05/20/18 22:30 Sputum - Expectorated Sputum Sputum Culture - Preliminary Gram Negative Rods 05/19/18 12:40 Thoracic Fluid Gram Stain - Final 05/19/18 12:40 Thoracic Fluid Body Fluid Culture - Preliminary NO GROWTH AFTER 72 HOURS - Constitutional no acute distress - *Routine Respiratory Exam Present: CTA bilaterally - *Routine Cardiovascular Exam Present: RRR - *Routine Abdominal Exam Present: distended - *Routine Extremities Exam Present: edema Assessment and Plan (1) Dehydration Current visit: Yes Status: Acute Category: Medical Code(s): E86.0 - Dehydration (2) Nausea and vomiting Current visit: Yes Status: Acute Category: Medical Code(s): R11.2 - Nausea with vomiting, unspecified (3) Cirrhosis of liver with ascites Current visit: Yes Status: Acute Category: Medical Code(s): K74.60 - Unspecified cirrhosis of liver; R18.8 - Other ascites (4) Pleural effusion associated with hepatic disorder Current visit: Yes Status: Acute Category: Medical Code(s): K76.9 - Liver disease, unspecified; J91.8 - Pleural effusion in other conditions classified elsewhere (5) Clostridium difficile enterocolitis Current visit: Yes Status: Acute Category: Medical Code(s): A04.72 - Enterocolitis due to Clostridium difficile, not specified as recurrent (6) Hypokalemia Current visit: Yes Status: Acute Category: Medical Code(s): E87.6 - Hypokalemia (7) Coronary artery disease Current visit: Yes Status: Acute Category: Medical Code(s): I25.10 - Atherosclerotic heart disease of [place] coronary artery without angina pectoris (8) History of coronary artery bypass graft x 3 Current visit: Yes Status: Acute Category: Surgical Code(s): Z95.1 - Presence of aortocoronary bypass graft (9) Rheumatoid arthritis Current visit: Yes Status: Acute Category: Medical Code(s): M06.9 - Rheumatoid arthritis, unspecified (10) Goiter Current visit: Yes Status: Acute Category: Medical Code(s): E04.9 - Nontoxic goiter, unspecified (11) Smoking history Current visit: Yes Status: Acute Category: Medical Code(s): Z87.891 - Personal history of nicotine dependence - Assessment and plan all Dx Assessment and Plan for all problems:: continue present regimen. PT consult.
--- NOTE | 2018-05-23 09:02 | P.PN_ITS ---
Internal Medicine - PN: Subj *Date: 05/23/18 *Time: 09:00 Interval history: She still does not feel well. There was another paracentesis yesterday with over 4 L removed. She received albumin IV. She continues with some nausea. She has trace to 1+ leg edema. Exam Vital signs and Labs for Last 24 Hours: Temp Pulse Resp BP Pulse Ox 98.1 F 77 17 121/71 92 L 05/23/18 07:46 05/23/18 07:46 05/23/18 07:46 05/23/18 07:46 05/23/18 07:46 Laboratory Results - last 24 hr 05/19/18 09:05: Angiotensin Convert Enz 58, QIANA Comment Comment, DIANE-1 Antibody <0.2, SS-A Antibody <0.2, SS-B Antibody <0.2, Sm (Mendez) Antibody <0.2, SIGNAL INSPECTOR Antibody 0.6, Scl-70 Scleroderma Ab <0.2, Double Strand DNA Ab 1, Chromatin Antibody 0.2, Centromere B Antibody <0.2 I & O for Last 24 hours: Intake & Output 05/20/18 05/21/18 05/22/18 05/23/18 11:59 11:59 11:59 11:59 Intake Total 940 / 940 735 / 735 970 / 970 720 / 720 Output Total 480 / 480 480 / 480 800 / 800 Balance 940 / 940 255 / 255 490 / 490 -80 / -80 Weight 185 lb 4 oz 186 lb 5 oz 189 lb 2 oz 180 lb 5 oz Microbiology Reports for the Last 24 Hours: Microbiology 05/20/18 22:30 Sputum - Expectorated Sputum Gram Stain - Final 05/20/18 22:30 Sputum - Expectorated Sputum Sputum Culture - Preliminary Gram Negative Rods 05/19/18 12:40 Thoracic Fluid Gram Stain - Final 05/19/18 12:40 Thoracic Fluid Body Fluid Culture - Preliminary NO GROWTH AFTER 72 HOURS - Constitutional no acute distress - *Routine Respiratory Exam Present: CTA bilaterally - *Routine Cardiovascular Exam Present: RRR - *Routine Abdominal Exam Present: distended - *Routine Extremities Exam Present: edema Assessment and Plan (1) Dehydration Current visit: Yes Status: Acute Category: Medical Code(s): E86.0 - Dehydration (2) Nausea and vomiting Current visit: Yes Status: Acute Category: Medical Code(s): R11.2 - Nausea with vomiting, unspecified (3) Cirrhosis of liver with ascites Current visit: Yes Status: Acute Category: Medical Code(s): K74.60 - Unspecified cirrhosis of liver; R18.8 - Other ascites (4) Pleural effusion associated with hepatic disorder Current visit: Yes Status: Acute Category: Medical Code(s): K76.9 - Liver disease, unspecified; J91.8 - Pleural effusion in other conditions classified elsewhere (5) Clostridium difficile enterocolitis Current visit: Yes Status: Acute Category: Medical Code(s): A04.72 - Enterocolitis due to Clostridium difficile, not specified as recurrent (6) Hypokalemia Current visit: Yes Status: Acute Category: Medical Code(s): E87.6 - Hypokalemia (7) Coronary artery disease Current visit: Yes Status: Acute Category: Medical Code(s): I25.10 - A therosclerotic heart disease of [place] coronary artery without angina pectoris (8) History of coronary artery bypass graft x 3 Current visit: Yes Status: Acute Category: Surgical Code(s): Z95.1 - Presence of aortocoronary bypass graft (9) Rheumatoid arthritis Current visit: Yes Status: Acute Category: Medical Code(s): M06.9 - Rheumatoid arthritis, unspecified (10) Goiter Current visit: Yes Status: Acute Category: Medical Code(s): E04.9 - Nontoxic goiter, unspecified
--- NOTE | 2018-05-23 10:55 | PC.NURSE ---
COURTESY ROUND NOW. PT UP IN CHAIR. NO NEEDS WAS VOICED.
--- NOTE | 2018-05-23 13:08 | SW/DCPLANNER ---
Deisy Haynes did speak with this patient and stated that patient is a true self pay. I will provide this patient with discount prescription cards for a future resource.
[2018-05-23 16:15] LABS: Immunoglobulin M, Qn 346 mg/dL (26-217); Mitochondrial (M2) Antibody <20.0 Units (0.0-20.0)
[2018-05-23 16:16] LABS: Deamidated Gliadin Abs, IgA 7 units (0-19); Deamidated Gliadin Abs, IgG 3 units (0-19); Liver-Kidney Microsomal Ab <1.0 Units (0.0-20.0); Tissue Transglutaminase IgA Ab <2 U/mL (0-3); Tissue Transglutaminase IgG Ab 6 U/mL (0-5)
--- NOTE | 2018-05-23 18:10 | PC.NURSE ---
PT STATED SHE HAD 3 SMALL YELLOW LIQUID,LOOSE , BOWEL MOVEMENTS. RN AWARE
--- NOTE | 2018-05-23 18:48 | PC.NURSE ---
pt has ambulated in room and sat up in chair this shift. v/s/s. pt reports bowel movements have slowed down. pt had pain earlier in shift and kpad was ordered which has provided relief. telemetry d/c. call light in reach. pt in isolation. will conitinue to monitor pt condition.
--- NOTE | 2018-05-23 19:48 | PC.NURSE ---
report given to osmin burt
[2018-05-24] VITALS: BP 120/70; PULSE 74; RESP 18; TEMP 36.8; O2SAT 92
--- NOTE | 2018-05-24 03:28 | PC.NURSE ---
PATIENT HAS RESTED ON AND OFF THIS SHIFT. SHE DID HAVE AN EPISODE OF NAUSEA WITH SOME VOMITING X1 AND WAS GIVEN PRN REGLAN, WHICH SHE STATED HELPED. SHE HAS REMAINED ON ROOM AIR THIS SHIFT WITH NO C/O SOA OR DISTRESS. HER ABDOMEN HAS GOTTEN SLIGHTLY MORE DISTENDED THROUGHOUT THE NIGHT SINCE PREVIOUS ASSESSMENT. HOWEVER NO OTHER ACUTE CHANGES NOTED. SHE CONTINUES TO USE KPAD FOR LOW BACK AND HIP DISCOMFORT. PATIENT IS CURRENTLY IN BED SLEEPING. NO OTHER PROBLEMS NOTED AT THIS TIME. VSS. WILL CONTINUE TO MONITOR.
[2018-05-24 04:00] VITALS: BP 105/41; PULSE 68; RESP 17; TEMP 36.7; O2SAT 93
[2018-05-24 05:31] VITALS: BMI 30.7
[2018-05-24 07:20] LABS: Basophils % 0.4 % (0.1-2.0); Eosinophils # 0.1 K/mm3 (0.0-0.4); Hematocrit 33.9 % (37.0-47.0); Lymphocytes # 1.1 K/mm3 (0.7-4.5); Lymphocytes % 20.9 % (10-50); Mean Corpuscular HGB Conc 32.3 g/dL (31.8-35.4); Mean Corpuscular Hemoglobin 27.5 pg (27.0-31.2); Mean Platelet Volume 9.4 fl (7.4-10.4); Monocytes # 0.5 K/mm3 (0.1-1.0); Monocytes % 9.1 % (1.7-9.3); Neutrophils # 3.7 K/mm3 (1.8-7.8); Neutrophils % 68.7 % (37.0-80.0); Platelet Count 139 K/mm3 (142-424); Red Blood Count 3.99 M/mm3 (4.20-5.40); Red Cell Distribution Width 22.5 % (11.5-17.5); White Blood Count 5.4 K/mm3 (4.8-10.8)
[2018-05-24 07:37] LABS: Anion Gap 13.3 mEq/L (5-15); Blood Urea Nitrogen 13 mg/dL (7-18); Calcium 8.6 mg/dL (8.5-10.1); Carbon Dioxide 23 mmol/L (21.0-32.0); Chloride 100 mmol/L (98-107); Creatinine Clearance Estimated 74 mL/min (50-200); Creatinine,Serum 0.91 mg/dL (0.55-1.02); Estimated Glomerular Filt Rate 62 ml/min (>60); GFR (African American) 76 ML/MIN (>60); Potassium 4.3 mmoL/L (3.5-5.1); Sodium 132 mmol/L (136-145)
[2018-05-24 07:43] LABS: Glucose 103 mg/dL (74-106)
--- NOTE | 2018-05-24 07:43 | PC.NURSE ---
REPORT GIVEN TO Iraj MUNOZ RN
[2018-05-24 08:00] VITALS: BP 148/76; PULSE 78; RESP 20; TEMP 37.1; O2SAT 91
--- NOTE | 2018-05-24 08:06 | HMH.ACPN2 ---
Internal Medicine - PN: Subj *Date: 05/24/18 *Time: 08:06 Interval history: Patient states she feels awful this morning. She states she had diarrhea throughout the night and was unable sleep. She says her abdomen has started distending again and feels almost as full as it did initially. Her legs are also swelling. She is trying to eat some breakfast this morning but states she is nauseated. Exam Vital signs and Labs for Last 24 Hours: Temp Pulse Resp BP Pulse Ox 98.1 F 68 17 105/41 L 93 L 05/24/18 04:00 05/24/18 04:00 05/24/18 04:00 05/24/18 04:00 05/24/18 04:00 Laboratory Results - last 24 hr 05/19/18 09:05: Angiotensin Convert Enz 58, QIANA Comment Comment, DIANE-1 Antibody <0.2, SS-A Antibody <0.2, SS-B Antibody <0.2, Sm (Mendez) Antibody <0.2, CITRUS FRUIT COLORER Antibody 0.6, Scl-70 Scleroderma Ab <0.2, Double Strand DNA Ab 1, Chromatin Antibody 0.2, Centromere B Antibody <0.2 05/22/18 10:45: IgG 1526, IgA 715 H, IgM 346 H, Mitochondria M2 Ab <20.0, Tiss Transglutamin IgG 6 H, Tiss Transglutamin IgA <2, Gliadin (Deamidat) IgG 3, Gliadin (Deamidat) IgA 7, Liver/Kid Microsomes Ab <1.0 05/24/18 06:58: WBC 5.4 D, RBC 3.99 L, Hgb 11.0 L, Hct 33.9 L, MCV 85.0, MCH 27.5, MCHC 32.3, RDW 22.5 H, Plt Count 139 L D, MPV 9.4, Neut % (Auto) 68.7, Lymph % (Auto) 20.9, [place] % (Auto) 9.1, Eos % (Auto) 1.0, Baso % (Auto) 0.4, Neut # (Auto) 3.7, Lymph # (Auto) 1.1, [place] # (Auto) 0.5, Eos # (Auto) 0.1, Baso # (Auto) 0.0 05/24/18 06:58: Sodium 132 L, Potassium 4.3, Chloride 100, Carbon Dioxide 23, Anion Gap 13.3, BUN 13, Creatinine 0.91, Estimated Creat Clear 74, Estimated GFR 62, Est GFR ( Amer) 76, Glucose 103, Calcium 8.6 I & O for Last 24 hours: Intake & Output 05/21/18 05/22/18 05/23/18 05/24/18 11:59 11:59 11:59 11:59 Intake Total 735 / 735 970 / 970 720 / 720 880 / 880 Output Total 480 / 480 480 / 480 800 / 800 Balance 255 / 255 490 / 490 -80 / -80 879 / 879 Weight 186 lb 5 oz 189 lb 2 oz 180 lb 5 oz 180 lb 1.6 oz Microbiology Reports for the Last 24 Hours: Microbiology 05/19/18 12:40 Thoracic Fluid Gram Stain - Final 05/19/18 12:40 Thoracic Fluid Body Fluid Culture - Preliminary NO GROWTH AFTER 4 DAYS 05/20/18 22:30 Sputum - Expectorated Sputum Gram Stain - Final 05/20/18 22:30 Sputum - Expectorated Sputum Sputum Culture - Preliminary Gram Negative Rods - Constitutional no acute distress - *Routine Respiratory Exam Present: CTA bilaterally - *Routine Cardiovascular Exam Present: RRR - *Routine Abdominal Exam Present: normoactive bowel sounds, tenderness (diffuse), distended - *Routine Extremities Exam Present: edema (trace in bilateral LE's) Assessment and Plan (1) Dehydration Current visit: Yes Status: Acute Category: Medical Code(s): E86.0 - Dehydration (2) Nausea and vomiting Current visit: Yes Status: Acute Category: Medical Code(s): R11.2 - Nausea with vomiting, unspecified (3) Cirrhosis of liver with ascites Current visit: Yes Status: Acute Category: Medical Code(s): K74.60 - Unspecified cirrhosis of liver; R18.8 - Other ascites (4) Pleural effusion associated with hepatic disorder Current visit: Yes Status: Acute Category: Medical Code(s): K76.9 - Liver disease, unspecified; J91.8 - Pleural effusion in other conditions classified elsewhere (5) Clostridium difficile enterocolitis Current visit: Yes Status: Acute Category: Medical Code(s): A04.72 - Enterocolitis due to Clostridium difficile, not specified as recurrent (6) Hypokalemia Current visit: Yes Status: Acute Category: Medical Code(s): E87.6 - Hypokalemia (7) Coronary artery disease Current visit: Yes Status: Acute Category: Medical Code(s): I25.10 - Atherosclerotic heart disease of [place] coronary artery without angina pectoris (8) History of coronary artery bypass graft x 3 Current visit: Yes St
--- NOTE | 2018-05-24 08:09 | P.PN_ITS ---
Internal Medicine - PN: Subj *Date: 05/24/18 *Time: 08:06 Interval history: Patient states she feels awful this morning. She states she had diarrhea throughout the night and was unable sleep. She says her abdomen has started distending again and feels almost as full as it did initially. Her legs are also swelling. She is trying to eat some breakfast this morning but states she is nauseated. Exam Vital signs and Labs for Last 24 Hours: Temp Pulse Resp BP Pulse Ox 98.1 F 68 17 105/41 L 93 L 05/24/18 04:00 05/24/18 04:00 05/24/18 04:00 05/24/18 04:00 05/24/18 04:00 Laboratory Results - last 24 hr 05/19/18 09:05: Angiotensin Convert Enz 58, QIANA Comment Comment, DIANE-1 Antibody <0.2, SS-A Antibody <0.2, SS-B Antibody <0.2, Sm (Mendez) Antibody <0.2, GEOCHEMICAL MANAGER Antibody 0.6, Scl-70 Scleroderma Ab <0.2, Double Strand DNA Ab 1, Chromatin Antibody 0.2, Centromere B Antibody <0.2 05/22/18 10:45: IgG 1526, IgA 715 H, IgM 346 H, Mitochondria M2 Ab <20.0, Tiss Transglutamin IgG 6 H, Tiss Transglutamin IgA <2, Gliadin (Deamidat) IgG 3, Gliadin (Deamidat) IgA 7, Liver/Kid Microsomes Ab <1.0 05/24/18 06:58: WBC 5.4 D, RBC 3.99 L, Hgb 11.0 L, Hct 33.9 L, MCV 85.0, MCH 27.5, MCHC 32.3, RDW 22.5 H, Plt Count 139 L D, MPV 9.4, Neut % (Auto) 68.7, Lymph % (Auto) 20.9, [place] % (Auto) 9.1, Eos % (Auto) 1.0, Baso % (Auto) 0.4, Neut # (Auto) 3.7, Lymph # (Auto) 1.1, [place] # (Auto) 0.5, Eos # (Auto) 0.1, Baso # (Auto) 0.0 05/24/18 06:58: Sodium 132 L, Potassium 4.3, Chloride 100, Carbon Dioxide 23, Anion Gap 13.3, BUN 13, Creatinine 0.91, Estimated Creat Clear 74, Estimated GFR 62, Est GFR ( Amer) 76, Glucose 103, Calcium 8.6 I & O for Last 24 hours: Intake & Output 05/21/18 05/22/18 05/23/18 05/24/18 11:59 11:59 11:59 11:59 Intake Total 735 / 735 970 / 970 720 / 720 880 / 880 Output Total 480 / 480 480 / 480 800 / 800 Balance 255 / 255 490 / 490 -80 / -80 879 / 879 Weight 186 lb 5 oz 189 lb 2 oz 180 lb 5 oz 180 lb 1.6 oz Microbiology Reports for the Last 24 Hours: Microbiology 05/19/18 12:40 Thoracic Fluid Gram Stain - Final 05/19/18 12:40 Thoracic Fluid Body Fluid Culture - Preliminary NO GROWTH AFTER 4 DAYS 05/20/18 22:30 Sputum - Expectorated Sputum Gram Stain - Final 05/20/18 22:30 Sputum - Expectorated Sputum Sputum Culture - Preliminary Gram Negative Rods - Constitutional no acute distress - *Routine Respiratory Exam Present: CTA bilaterally - *Routine Cardiovascular Exam Present: RRR - *Routine Abdominal Exam Present: normoactive bowel sounds, tenderness (diffuse), distended - *Routine Extremities Exam Present: edema (trace in bilateral LE's) Assessment and Plan (1) Dehydration Current visit: Yes Status: Acute Category: Medical Code(s): E86.0 - Dehydration (2) Nausea and vomiting Current visit: Yes Status: Acute Category: Medical Code(s): R11.2 - Nausea with vomiting, unspecified (3) Cirrhosis of liver with ascites Current visit: Yes Status: Acute Category: Medical Code(s): K74.60 - Unspecified cirrhosis of liver; R18.8 - Other ascites (4) Pleural effusion associated with hepatic disorder Current visit: Yes Status: Acute Category: Medical Code(s): K76.9 - Liver disease, unspecified; J91.8 - Pleural effusion in other conditions classified elsewhere
--- NOTE | 2018-05-24 08:22 | XR_ITS ---
XR chest 2V HISTORY: Follow-up pleural effusion ITS.REASON: pleural effusion ORDERING PHYSICIAN: Irene Mena MD PATIENT AGE: 63 years COMPARISON: 05/17/2018 FINDINGS: There has been a prior CABG. Normal heart size. Small left pleural effusion is once again noted and appear slightly smaller compared to the previous exam with some mild associated left basilar atelectasis/consolidation which is also improved. No acute bony anomalies. IMPRESSION: Improving left lower lobe consolidation and effusion.
[2018-05-24 08:42] LABS: Endomysial IgA Antibody Negative (Negative)
--- NOTE | 2018-05-24 13:43 | DIET.NUTRFU ---
C/o nausea and vomitting. PO intakes remain 75% avg. Continued diarrhea. Recommend probiotic supplement. Assisted with menu selections.
[2018-05-24 16:00] VITALS: BP 133/68; PULSE 77; RESP 18; TEMP 36.8; O2SAT 95
[2018-05-24 17:12] LABS: Alpha-1-Antitrypsin 225 mg/dL (90-200)
--- NOTE | 2018-05-24 18:35 | PC.NURSE ---
pt ambulates independently in room. pt abdomen appears to be getting more distended throughout shift. abdomen is hard, firm and tender. pt had some nausea this morning but has had no complaints since. v/s/s. iv patent. call light in reach. will continue to monitor pt condtion.
--- NOTE | 2018-05-24 19:19 | PC.NURSE ---
REPORT GIVEN TO HUMZA
--- NOTE | 2018-05-24 19:46 | PC.NURSE ---
report given to bo burt
[2018-05-24 20:00] VITALS: BP 108/50; PULSE 70; PULSE 77; RESP 16; TEMP 37; O2SAT 93
[2018-05-24 21:49] VITALS: O2SAT 91
--- NOTE | 2018-05-25 03:40 | PC.NURSE ---
A&OX4. PT. REPORTS TENDERNESS IN ABDOMEN LIKE A BAND ACROSS THE MIDDLE OF MY BELLY . PT. REFUSED LACTULOSE R/T CONCERNS OF LOOSE STOOLS, EDUCATED PT. THAT SHE HAS ANTI-DIARRHEAL MEDS, PT. STILL REFUSED. PT. MAINTAINED IN ENTERIC PRECAUTIONS. PT. C/O EPISODE OF NAUSEA; NOTIFIED AND ORDERED ZOFRAN; ZOFRAN ADMINISTERED AND RELIEVED NAUSEA (SEE PROVIDER NOTIFICATION). IV PATENT WHEN FLUSHED. VSS. WILL CONTINUE TO MONITOR.
[2018-05-25 04:00] VITALS: BP 108/55; PULSE 71; RESP 18; TEMP 36.8; O2SAT 94
[2018-05-25 05:37] VITALS: BMI 30.4
[2018-05-25 08:00] VITALS: BP 99/48; PULSE 73; RESP 18; TEMP 36.5; O2SAT 91
--- NOTE | 2018-05-25 08:54 | HMH.ACPN2 ---
Internal Medicine - PN: Subj *Date: 05/25/18 *Time: 08:55 Interval history: Patient states she is feeling worse this morning. Her abdomen has distended even more today. She is now short of breath and very nauseated. She tried to eat a small amount of breakfast. She continues with diarrhea. Exam Vital signs and Labs for Last 24 Hours: Temp Pulse Resp BP Pulse Ox 97.7 F 73 18 99/48 L 91 L 05/25/18 08:00 05/25/18 08:00 05/25/18 08:00 05/25/18 08:00 05/25/18 08:00 Laboratory Results - last 24 hr 05/19/18 09:05: Upute-4-Kofacfzsiir 225 H, Alpha-1-AT Phenotype Mm I & O for Last 24 hours: Intake & Output 05/22/18 05/23/18 05/24/18 05/25/18 11:59 11:59 11:59 11:59 Intake Total 970 / 970 720 / 720 1120 / 1120 1690 / 1690 Output Total 480 / 480 800 / 800 / Balance 490 / 490 -80 / -80 1119 / 1119 1690 / 1690 Weight 189 lb 2 oz 180 lb 5 oz 180 lb 1.6 oz 178 lb 9 oz Microbiology Reports for the Last 24 Hours: Microbiology 05/20/18 22:30 Sputum - Expectorated Sputum Gram Stain - Final 05/20/18 22:30 Sputum - Expectorated Sputum Sputum Culture - Final Gram Negative Rods 05/19/18 12:40 Thoracic Fluid Gram Stain - Final 05/19/18 12:40 Thoracic Fluid Body Fluid Culture - Final NO GROWTH AFTER 5 DAYS - Constitutional no acute distress - *Routine Respiratory Exam Present: decreased breath sounds - *Routine Cardiovascular Exam Present: RRR - *Routine Abdominal Exam Present: tenderness (diffuse), distended (very distended ) - *Routine Extremities Exam Present: edema (bilateral LE edema) - *Routine Neurological Exam Present: alert, oriented X3 Assessment and Plan (1) Dehydration Current visit: Yes Status: Acute Category: Medical Code(s): E86.0 - Dehydration (2) Nausea and vomiting Current visit: Yes Status: Acute Category: Medical Code(s): R11.2 - Nausea with vomiting, unspecified (3) Cirrhosis of liver with ascites Current visit: Yes Status: Acute Category: Medical Code(s): K74.60 - Unspecified cirrhosis of liver; R18.8 - Other ascites (4) Pleural effusion associated with hepatic disorder Current visit: Yes Status: Acute Category: Medical Code(s): K76.9 - Liver disease, unspecified; J91.8 - Pleural effusion in other conditions classified elsewhere (5) Clostridium difficile enterocolitis Current visit: Yes Status: Acute Category: Medical Code(s): A04.72 - Enterocolitis due to Clostridium difficile, not specified as recurrent (6) Hypokalemia Current visit: Yes Status: Acute Category: Medical Code(s): E87.6 - Hypokalemia (7) Coronary artery disease Current visit: Yes Status: Acute Category: Medical Code(s): I25.10 - Atherosclerotic heart disease of [place] coronary artery without angina pectoris (8) History of coronary artery bypass graft x 3 Current visit: Yes Status: Acute Category: Surgical Code(s): Z95.1 - Presence of aortocoronary bypass graft (9) Rheumatoid arthritis Current visit: Yes Status: Acute Category: Medical Code(s): M06.9 - Rheumatoid arthritis, unspecified (10) Goiter Current visit: Yes Status: Acute Category: Medical Code(s): E04.9 - Nontoxic goiter, unspecified (11) Smoking history Current visit: Yes Status: Acute Category: Medical Code(s): Z87.891 - Personal history of nicotine dependence - Assessment and plan all Dx Assessment and Plan for all problems:: Will discuss further care with Dr. sutherland. Will likely need to consult Dr. Guo again tomorrow as the fluid continues to reaccumulate in her abdomen.
[2018-05-25 09:29] LABS: Reticulin IgA Antibody Negative titer (Neg:<1:2.5)
[2018-05-25 11:17] LABS: Alanine Aminotransferase 43 U/L (12-78); Albumin Level 2.3 gm/dL (3.4-5.0); Albumin/Globulin Ratio 0.5 (1.1-1.8); Alkaline Phosphatase 134 U/L (46-116); Anion Gap 13.8 mEq/L (5-15); Aspartate Amino Transferase 96 U/L (15-37); Bilirubin,Total 1.6 mg/dL (0.2-1.0); Blood Urea Nitrogen 17 mg/dL (7-18); Calcium 8.6 mg/dL (8.5-10.1); Carbon Dioxide 24 mmol/L (21.0-32.0); Chloride 98 mmol/L (98-107); Creatinine Clearance Estimated 66 mL/min (50-200); Creatinine,Serum 1.11 mg/dL (0.55-1.02); Estimated Glomerular Filt Rate 50 ml/min (>60); GFR (African American) 60 ML/MIN (>60); Globulin 4.8 gm/dl (1.3-3.2); Glucose 137 mg/dL (74-106); Potassium 3.8 mmoL/L (3.5-5.1); Sodium 132 mmol/L (136-145); Total Protein,Serum 7.1 gm/dL (6.4-8.2)
[2018-05-25 16:00] VITALS: BP 118/57; PULSE 86; RESP 16; TEMP 36.6; O2SAT 91
--- NOTE | 2018-05-25 17:01 | PC.NURSE ---
Patient has had no change since morning admission, patient has tolerated medications per mar. loose stools continue, patient has remained continent of BB. patient has no complaints at this time. VSS. will continue to monitor.
[2018-05-25 20:00] VITALS: BP 103/47; PULSE 69; RESP 17; TEMP 37.5; O2SAT 92
[2018-05-26 04:00] VITALS: BP 112/60; PULSE 74; RESP 16; TEMP 37.2; O2SAT 91
--- NOTE | 2018-05-26 04:40 | PC.NURSE ---
PT HAS SLEPT INTERMITTENTLY. REFUSED 2100 LACTULOSE. REINFORCED IMPORTANCE OF TAKING LACTULOSE. REMINDED PATIENT THAT C-DIFF IS ALSO CONTRIBUTING TO HER DIARRHEA. EDEMA NOTED BLE. PT AMBULATES INDEPENDENTLY IN ROOM.
[2018-05-26 05:36] VITALS: BMI 30.6
[2018-05-26 07:36] VITALS: BP 111/65; PULSE 80; RESP 17; TEMP 37.1; O2SAT 92
[2018-05-26 07:39] VITALS: O2SAT 92
--- NOTE | 2018-05-26 08:50 | HMH.ACPN2 ---
Internal Medicine - PN: Subj *Date: 05/26/18 *Time: 08:51 Interval history: She still does not feel well but but she only had 3 episodes of diarrhea yesterday and no vomiting. Dr. sutherland spoke with Dr. Guo yesterday. He will be seeing her today. Disposition is an issue. She will probably need further paracentesis episodically. Exam Vital signs and Labs for Last 24 Hours: Temp Pulse Resp BP Pulse Ox 98.7 F 80 17 111/65 92 L 05/26/18 07:36 05/26/18 07:36 05/26/18 07:36 05/26/18 07:36 05/26/18 07:39 Laboratory Results - last 24 hr 05/22/18 10:45: Reticulin IgA Antibody Negative 05/25/18 10:51: Sodium 132 L, Potassium 3.8, Chloride 98, Carbon Dioxide 24, Anion Gap 13.8, BUN 17 D, Creatinine 1.11 H D, Estimated Creat Clear 66, Estimated GFR 50 L, Est GFR ( Amer) 60 D, Glucose 137 H, Calcium 8.6, Total Bilirubin 1.6 H, AST 96 H, ALT 43, Alkaline Phosphatase 134 H, Total Protein 7.1, Albumin 2.3 L, Globulin 4.8 H, Albumin/Globulin Ratio 0.5 L I & O for Last 24 hours: Intake & Output 05/23/18 05/24/18 05/25/18 05/26/18 11:59 11:59 11:59 11:59 Intake Total 720 / 720 1120 / 1120 1690 / 1690 1200 / 1200 Output Total 800 / 800 Balance -80 / -80 1119 / 1119 1690 / 1690 1200 / 1200 Weight 180 lb 5 oz 180 lb 1.6 oz 178 lb 9 oz 179 lb 6 oz Microbiology Reports for the Last 24 Hours: Microbiology 05/20/18 22:30 Sputum - Expectorated Sputum Gram Stain - Final 05/20/18 22:30 Sputum - Expectorated Sputum Sputum Culture - Final Gram Negative Rods - Constitutional no acute distress Comments: Appears depressed. - *Routine Respiratory Exam Present: CTA bilaterally - *Routine Cardiovascular Exam Present: RRR - *Routine Abdominal Exam Present: soft, distended. Absent: tenderness - *Routine Extremities Exam Present: edema - *Routine Neurological Exam Present: alert, oriented X3 - Routine Psychiatric Exam Comments: Appears depressed. Assessment and Plan (1) Dehydration Current visit: Yes Status: Acute Category: Medical Code(s): E86.0 - Dehydration (2) Nausea and vomiting Current visit: Yes Status: Acute Category: Medical Code(s): R11.2 - Nausea with vomiting, unspecified (3) Cirrhosis of liver with ascites Current visit: Yes Status: Acute Category: Medical Code(s): K74.60 - Unspecified cirrhosis of liver; R18.8 - Other ascites (4) Pleural effusion associated with hepatic disorder Current visit: Yes Status: Acute Category: Medical Code(s): K76.9 - Liver disease, unspecified; J91.8 - Pleural effusion in other conditions classified elsewhere (5) Clostridium difficile enterocolitis Current visit: Yes Status: Acute Category: Medical Code(s): A04.72 - Enterocolitis due to Clostridium difficile, not specified as recurrent (6) Hypokalemia Current visit: Yes Status: Acute Category: Medical Code(s): E87.6 - Hypokalemia (7) Coronary artery disease Current visit: Yes Status: Acute Category: Medical Code(s): I25.10 - Atherosclerotic heart disease of [place] coronary artery without angina pectoris (8) History of coronary artery bypass graft x 3 Current visit: Yes Status: Acute Category: Surgical Code(s): Z95.1 - Presence of aortocoronary bypass graft (9) Rheumatoid arthritis Current visit: Yes Status: Acute Category: Medical Code(s): M06.9 - Rheumatoid arthritis, unspecified (10) Goiter Current visit: Yes Status: Acute Category: Medical Code(s): E04.9 - Nontoxic goiter, unspecified (11) Smoking history Current visit: Yes Status: Acute Category: Medical Code(s): Z87.891 - Personal history of nicotine dependence - Assessment and plan all Dx Assessment and Plan for all problems:: Continue present regimen. Dr. Sari Valladares today. We need to help with disposition.
--- NOTE | 2018-05-26 08:54 | P.PN_ITS ---
Internal Medicine - PN: Subj *Date: 05/26/18 *Time: 08:51 Interval history: She still does not feel well but but she only had 3 episodes of diarrhea yesterday and no vomiting. Dr. sutherland spoke with Dr. Guo yesterday. He will be seeing her today. Disposition is an issue. She will probably need further paracentesis episodically. Exam Vital signs and Labs for Last 24 Hours: Temp Pulse Resp BP Pulse Ox 98.7 F 80 17 111/65 92 L 05/26/18 07:36 05/26/18 07:36 05/26/18 07:36 05/26/18 07:36 05/26/18 07:39 Laboratory Results - last 24 hr 05/22/18 10:45: Reticulin IgA Antibody Negative 05/25/18 10:51: Sodium 132 L, Potassium 3.8, Chloride 98, Carbon Dioxide 24, Anion Gap 13.8, BUN 17 D, Creatinine 1.11 H D, Estimated Creat Clear 66, Estimated GFR 50 L, Est GFR ( Amer) 60 D, Glucose 137 H, Calcium 8.6, Total Bilirubin 1.6 H, AST 96 H, ALT 43, Alkaline Phosphatase 134 H, Total Protein 7.1, Albumin 2.3 L, Globulin 4.8 H, Albumin/Globulin Ratio 0.5 L I & O for Last 24 hours: Intake & Output 05/23/18 05/24/18 05/25/18 05/26/18 11:59 11:59 11:59 11:59 Intake Total 720 / 720 1120 / 1120 1690 / 1690 1200 / 1200 Output Total 800 / 800 Balance -80 / -80 1119 / 1119 1690 / 1690 1200 / 1200 Weight 180 lb 5 oz 180 lb 1.6 oz 178 lb 9 oz 179 lb 6 oz Microbiology Reports for the Last 24 Hours: Microbiology 05/20/18 22:30 Sputum - Expectorated Sputum Gram Stain - Final 05/20/18 22:30 Sputum - Expectorated Sputum Sputum Culture - Final Gram Negative Rods - Constitutional no acute distress Comments: Appears depressed. - *Routine Respiratory Exam Present: CTA bilaterally - *Routine Cardiovascular Exam Present: RRR - *Routine Abdominal Exam Present: soft, distended. Absent: tenderness - *Routine Extremities Exam Present: edema - *Routine Neurological Exam Present: alert, oriented X3 - Routine Psychiatric Exam Comments: Appears depressed. Assessment and Plan (1) Dehydration Current visit: Yes Status: Acute Category: Medical Code(s): E86.0 - Dehydration (2) Nausea and vomiting Current visit: Yes Status: Acute Category: Medical Code(s): R11.2 - Nausea with vomiting, unspecified (3) Cirrhosis of liver with ascites Current visit: Yes Status: Acute Category: Medical Code(s): K74.60 - Unspecified cirrhosis of liver; R18.8 - Other ascites (4) Pleural effusion associated with hepatic disorder Current visit: Yes Status: Acute Category: Medical Code(s): K76.9 - Liver disease, unspecified; J91.8 - Pleural effusion in other conditions classified elsewhere (5) Clostridium difficile enterocolitis Current visit: Yes Status: Acute Category: Medical Code(s): A04.72 - Enterocolitis due to Clostridium difficile, not specified as recurrent (6) Hypokalemia Current visit: Yes Status: Acute Category: Medical Code(s): E87.6 - Hypokalemia (7) Coronary artery disease Current visit: Yes Status: Acute Category: Medical Code(s): I25.10 - Atherosclerotic heart disease of [place] coronary artery without angina pectoris (8) History of coronary artery bypass graft x 3 Current visit: Yes Status: Acute Category: Surgical Code(s): Z95.1 - Presence of aortocoronary bypass graft (9) Rheum
--- NOTE | 2018-05-26 11:00 | PC.NURSE ---
SITTING IN CHAIR NO NEEDS AT THIS TIME
--- NOTE | 2018-05-26 15:09 | P.PCN_ITS ---
[facility] Procedure Note Procedure Note:: S: Patient much clear from cognitive standpoint. Still reports some recurrent increased abdominal girth but no abdominal pain. She reports no melena. O: Afebrile vital signs stable Physical Examination: Gen.: The patient is a well-developed well-nourished individual in no acute distress HEENT: Normocephalic/atraumatic extraocular movements are intact anicteric Neck: Supple no lymphadenopathy Chest: Clear to auscultation Cardiovascular: Regular rate and rhythm Abdomen: Ascites with ballotable liver and hepatosplenomegaly present, fluid wave palpable Extremities: No edema Labs creatinine 1.11 AST 96, ALT 33, total bilirubin 1.6, albumin 2.3, alkaline phosphatase 134, ascitic fluid results indicate no SBP A/P: 1. Intractable ascites. The patient does have reduced intravascular volume but increased third spacing volume primarily because of her hypoalbuminemia/hypoproteinemia and very typical of someone with more advanced liver disease. She did get albumin after her prior paracentesis. She does have a mildly elevated creatinine level and thus I am going to add Lasix but I will increase and push diuretic with spironolactone up to 200 mg daily. She may require frequent paracentesis at this point and obviously has elevated meld score and signs of liver failure. I presume etiology is Alberto and possibly effect of amiodarone. I did speak with Dr. Jesse Mena and I would recommend holding amiodarone presently. She will need close follow-up. She needs to be on a low-sodium diet for the ascites. I would also reduce fat/carbohydrate and increase protein diet. I would like for her to follow-up within a couple weeks as an outpatient here in [place] with [facility] who is only going to be with a short-term now.
--- NOTE | 2018-05-26 15:09 | DIET.NUTRFU ---
Pt PO intake good with a 75% avg at last five meals. Pt with episodes of diarrhea yesterday and has a consult with Dr. Guo scheduled for today per MD progress note. Pt wt down from admission. Pt receiving protein fortified grits to help supplement diet. Will continue to monitor.
[2018-05-26 16:00] VITALS: BP 115/64; PULSE 76; RESP 20; TEMP 36.9; O2SAT 93
--- NOTE | 2018-05-26 19:13 | PC.NURSE ---
report given to rashid
[2018-05-26 20:00] VITALS: BP 111/63; PULSE 76; RESP 18; TEMP 37; O2SAT 90
--- NOTE | 2018-05-26 21:08 | PC.NURSE ---
2100 courtesy check; patient up in chair, no needs voiced
--- NOTE | 2018-05-27 03:20 | PC.NURSE ---
A&OX4. ABD TENDER AND DISTENDED WITH ACTIVE BOWEL SOUNDS IN ALL QUADRANTS. PT. MAINTAINED IN ENTERIC PRECAUTIONS. PT. C/O EPISODE OF NAUSEA; ZOFRAN ADMINISTERED PER MAR; UPON POST-MED REASSESSMENT PT. NOTED TO BE RESTING IN BED WITH EYES CLOSED. PT. HAS NOT C/O PAIN, DIZZINESS, VOMITING OR SOB. IV PATENT WHEN FLUSHED. VSS. WILL CONTINUE TO MONITOR.
[2018-05-27 04:00] VITALS: BP 124/77; PULSE 81; RESP 20; TEMP 36.6; O2SAT 91
[2018-05-27 04:44] VITALS: BMI 30.4
--- NOTE | 2018-05-27 06:47 | PC.NURSE ---
0600 courtesy check; patient sleeping
[2018-05-27 08:00] VITALS: BP 126/70; PULSE 82; RESP 18; TEMP 36.9; O2SAT 93
[2018-05-27 08:41] VITALS: O2SAT 93
--- NOTE | 2018-05-27 08:53 | P.PN_ITS ---
Internal Medicine - PN: Subj *Date: 05/27/18 *Time: 08:51 Interval history: With frequent diarrhea. She is getting lactulose of course as well as metoclopramide. I would DC the metoclopramide. Her weight is still on a downward trend. She is still distended. Exam Vital signs and Labs for Last 24 Hours: Temp Pulse Resp BP Pulse Ox 98.4 F 82 18 126/70 93 L 05/27/18 08:00 05/27/18 08:00 05/27/18 08:00 05/27/18 08:00 05/27/18 08:41 Laboratory Tests 05/17/18 05/18/18 05/19/18 13:28 06:50 05:34 Total Bilirubin 2.2 H 1.7 H 1.5 H AST 130 H 103 H 98 H ALT 47 40 45 05/20/18 05/22/18 05/25/18 07:05 07:40 10:51 Total Bilirubin 1.8 H 1.7 H 1.6 H AST 95 H 81 H 96 H ALT 40 40 43 I & O for Last 24 hours: Intake & Output 05/24/18 05/25/18 05/26/18 05/27/18 11:59 11:59 11:59 11:59 Intake Total 1120 / 1120 1690 / 1690 1200 / 1200 600 / 600 Output Total Balance 1119 / 1119 1690 / 1690 1200 / 1200 600 / 600 Weight 180 lb 1.6 oz 178 lb 9 oz 179 lb 6 oz 178 lb 5 oz - *Routine Respiratory Exam Present: CTA bilaterally - *Routine Cardiovascular Exam Present: RRR - *Routine Abdominal Exam Present: distended - *Routine Extremities Exam Present: edema (2+) Assessment and Plan (1) Cirrhosis of liver with ascites Current visit: Yes Status: Acute Category: Medical Code(s): K74.60 - Unspecified cirrhosis of liver; R18.8 - Other ascites (2) Dehydration Current visit: Yes Status: Acute Category: Medical Code(s): E86.0 - Dehydration (3) Nausea and vomiting Current visit: Yes Status: Acute Category: Medical Code(s): R11.2 - Nausea with vomiting, unspecified (4) Pleural effusion associated with hepatic disorder Current visit: Yes Status: Acute Category: Medical Code(s): K76.9 - Liver disease, unspecified; J91.8 - Pleural effusion in other conditions classified elsewhere (5) Clostridium difficile enterocolitis Current visit: Yes Status: Acute Category: Medical Code(s): A04.72 - Enterocolitis due to Clostridium difficile, not specified as recurrent (6) Hypokalemia Current visit: Yes Status: Acute Category: Medical Code(s): E87.6 - Hypokalemia (7) Coronary artery disease Current visit: Yes Status: Acute Category: Medical Code(s): I25.10 - Atherosclerotic heart disease of [place] coronary artery without angina pectoris (8) History of coronary artery bypass graft x 3 Current visit: Yes Status: Acute Category: Surgical Code(s): Z95.1 - Presence of aortocoronary bypass graft (9) Rheumatoid arthritis Current visit: Yes Status: Acute Category: Medical Code(s): M06.9 - Rheumatoid arthritis, unspecified (10) Goiter Current visit: Yes Status: Acute Category: Medical Code(s): E04.9 - Nontoxic goiter, unspecified (11) Smoking history Current visit: Yes Status: Acute Category: Medical Code(s): Z87.891 - Personal history of nicotine dependence - Assessment and plan all Dx Assessment and Plan for all problems:: DC metoclopramide. Continue present regimen.
[2018-05-27 15:24] VITALS: BP 132/72; PULSE 76; RESP 18; TEMP 36.8; O2SAT 91
[2018-05-27 20:00] VITALS: BP 145/63; PULSE 80; RESP 22; TEMP 36.7; O2SAT 95
--- NOTE | 2018-05-27 21:57 | PC.NURSE ---
2100 courtesy check; no needs voiced
[2018-05-28 04:00] VITALS: BP 109/49; PULSE 75; RESP 22; TEMP 37.1; O2SAT 90
--- NOTE | 2018-05-28 04:56 | PC.NURSE ---
PT HAS SLEPT. NO COMPLAINTS.
--- NOTE | 2018-05-28 06:07 | PC.NURSE ---
0600 courtesy check; pt sleeping
[2018-05-28 07:04] VITALS: BMI 30.8
[2018-05-28 07:04] LABS: Basophils % 0.3 % (0.1-2.0); Eosinophils % 0.4 % (0.1-12.0); Hematocrit 34.1 % (37.0-47.0); Hemoglobin 10.8 g/dL (12.2-16.2); Lymphocytes # 1.2 K/mm3 (0.7-4.5); Lymphocytes % 14.2 % (10-50); Mean Corpuscular HGB Conc 31.5 g/dL (31.8-35.4); Mean Corpuscular Hemoglobin 26.8 pg (27.0-31.2); Mean Corpuscular Volume 85.1 fl (81-99); Monocytes # 0.6 K/mm3 (0.1-1.0); Monocytes % 6.4 % (1.7-9.3); Neutrophils # 6.7 K/mm3 (1.8-7.8); Neutrophils % 78.6 % (37.0-80.0); Platelet Count 189 K/mm3 (142-424); Red Blood Count 4.01 M/mm3 (4.20-5.40); Red Cell Distribution Width 22.9 % (11.5-17.5); White Blood Count 8.5 K/mm3 (4.8-10.8)
[2018-05-28 07:17] LABS: Alanine Aminotransferase 40 U/L (12-78); Albumin Level 2.2 gm/dL (3.4-5.0); Albumin/Globulin Ratio 0.5 (1.1-1.8); Alkaline Phosphatase 139 U/L (46-116); Anion Gap 13.3 mEq/L (5-15); Aspartate Amino Transferase 84 U/L (15-37); Blood Urea Nitrogen 18 mg/dL (7-18); Calcium 8.6 mg/dL (8.5-10.1); Carbon Dioxide 24 mmol/L (21.0-32.0); Chloride 99 mmol/L (98-107); Creatinine Clearance Estimated 66 mL/min (50-200); Creatinine,Serum 1.12 mg/dL (0.55-1.02); Estimated Glomerular Filt Rate 49 ml/min (>60); GFR (African American) 59 ML/MIN (>60); Globulin 4.8 gm/dl (1.3-3.2); Glucose 112 mg/dL (74-106); Potassium 4.3 mmoL/L (3.5-5.1); Sodium 132 mmol/L (136-145)
[2018-05-28 07:23] VITALS: BP 123/71; PULSE 84; RESP 16; TEMP 37.4; O2SAT 91
[2018-05-28 08:03] VITALS: O2SAT 92
--- NOTE | 2018-05-28 11:30 | PC.NURSE ---
pt is lying in bed expressed no needs at this time.
--- NOTE | 2018-05-28 13:04 | XR_ITS ---
XR foot RT min 3V HISTORY: ITS.REASON: acute injury, edema, tenderness ORDERING PHYSICIAN: Irene Mena MD PATIENT AGE: 63 years COMPARISON: None FINDINGS: No fracture or dislocation. No lytic or blastic change. There is normal mineralization.. The joint spaces are well-preserved. No significant degenerative/arthritic changes. No erosive changes evident. There is prominent diffuse soft tissue swelling of the forefoot especially dorsally IMPRESSION: Diffuse soft tissue injury of the forefoot, no definite fracture seen
--- NOTE | 2018-05-28 13:05 | HMH.ACPN2 ---
Internal Medicine - PN: Subj *Date: 05/28/18 *Time: 13:05 Interval history: She states she feels somewhat better. She still had diarrhea about 7 times yesterday. Stool is been more formed. Reviewing the labs show an increase in creatinine. Liver functions are stable at about the same level. Bilirubin is at 2.0. She fell in the bathroom and injured her right foot. There is swelling and tenderness of the right foot. X-ray will be obtained. Exam Vital signs and Labs for Last 24 Hours: Temp Pulse Resp BP Pulse Ox 99.3 F 84 16 123/71 92 L 05/28/18 07:23 05/28/18 07:23 05/28/18 07:23 05/28/18 07:23 05/28/18 08:03 Laboratory Results - last 24 hr 05/28/18 06:45: WBC 8.5, RBC 4.01 L, Hgb 10.8 L, Hct 34.1 L, MCV 85.1, MCH 26.8 L, MCHC 31.5 L, RDW 22.9 H, Plt Count 189 D, MPV 9.0, Neut % (Auto) 78.6, Lymph % (Auto) 14.2, [place] % (Auto) 6.4, Eos % (Auto) 0.4, Baso % (Auto) 0.3, Neut # (Auto) 6.7, Lymph # (Auto) 1.2, [place] # (Auto) 0.6, Eos # (Auto) 0.0, Baso # (Auto) 0.0 05/28/18 06:45: Sodium 132 L, Potassium 4.3, Chloride 99, Carbon Dioxide 24, Anion Gap 13.3, BUN 18, Creatinine 1.12 H, Estimated Creat Clear 66, Estimated GFR 49 L, Est GFR ( Amer) 59, Glucose 112 H, Calcium 8.6, Total Bilirubin 2.0 H, AST 84 H, ALT 40, Alkaline Phosphatase 139 H, Total Protein 7.0, Albumin 2.2 L, Globulin 4.8 H, Albumin/Globulin Ratio 0.5 L I & O for Last 24 hours: Intake & Output 05/26/18 05/27/18 05/28/18 05/29/18 11:59 11:59 11:59 11:59 Intake Total 1200 / 1200 600 / 600 960 / 960 Balance 1200 / 1200 600 / 600 960 / 960 Weight 179 lb 6 oz 178 lb 5 oz 180 lb 6 oz - Constitutional no acute distress - *Routine HEENT Exam Head: Present: normocephalic ENT: Present: mucous membranes moist - *Routine Respiratory Exam Present: decreased breath sounds, CTA bilaterally - *Routine Cardiovascular Exam Present: RRR - *Routine Abdominal Exam Present: soft, distended - *Routine Extremities Exam Present: edema Comments: There is edema and tenderness of the midfoot area. No ecchymoses. - *Routine Neurological Exam Present: alert, oriented X3 Assessment and Plan (1) Cirrhosis of liver with ascites Current visit: Yes Status: Acute Category: Medical Code(s): K74.60 - Unspecified cirrhosis of liver; R18.8 - Other ascites (2) Dehydration Current visit: Yes Status: Acute Category: Medical Code(s): E86.0 - Dehydration (3) Nausea and vomiting Current visit: Yes Status: Acute Category: Medical Code(s): R11.2 - Nausea with vomiting, unspecified (4) Pleural effusion associated with hepatic disorder Current visit: Yes Status: Acute Category: Medical Code(s): K76.9 - Liver disease, unspecified; J91.8 - Pleural effusion in other conditions classified elsewhere (5) Clostridium difficile enterocolitis Current visit: Yes Status: Acute Category: Medical Code(s): A04.72 - Enterocolitis due to Clostridium difficile, not specified as recurrent (6) Hypokalemia Current visit: Yes Status: Acute Category: Medical Code(s): E87.6 - Hypokalemia (7) Coronary artery disease Current visit: Yes Status: Acute Category: Medical Code(s): I25.10 - Atherosclerotic heart disease of [place] coronary artery without angina pectoris (8) History of coronary artery bypass graft x 3 Current visit: Yes Status: Acute Category: Surgical Code(s): Z95.1 - Presence of aortocoronary bypass graft (9) Rheumatoid arthritis Current visit: Yes Status: Acute Category: Medical Code(s): M06.9 - Rheumatoid arthritis, unspecified (10) Goiter Current visit: Yes Status: Acute Category: Medical Code(s): E04.9 - Nontoxic goiter, unspecified (11) Smoking history Current visit: Yes Status: Acute Category: Medical Code(s): Z87.891 - Personal history of nicotine dependence (12) Right foot injury Current visit: Yes Status: Acute Category: Medical Code(s): S99.92
--- NOTE | 2018-05-28 13:08 | P.PN_ITS ---
Internal Medicine - PN: Subj *Date: 05/28/18 *Time: 13:05 Interval history: She states she feels somewhat better. She still had diarrhea about 7 times yesterday. Stool is been more formed. Reviewing the labs show an increase in creatinine. Liver functions are stable at about the same level. Bilirubin is at 2.0. She fell in the bathroom and injured her right foot. There is swelling and tenderness of the right foot. X-ray will be obtained. Exam Vital signs and Labs for Last 24 Hours: Temp Pulse Resp BP Pulse Ox 99.3 F 84 16 123/71 92 L 05/28/18 07:23 05/28/18 07:23 05/28/18 07:23 05/28/18 07:23 05/28/18 08:03 Laboratory Results - last 24 hr 05/28/18 06:45: WBC 8.5, RBC 4.01 L, Hgb 10.8 L, Hct 34.1 L, MCV 85.1, MCH 26.8 L, MCHC 31.5 L, RDW 22.9 H, Plt Count 189 D, MPV 9.0, Neut % (Auto) 78.6, Lymph % (Auto) 14.2, [place] % (Auto) 6.4, Eos % (Auto) 0.4, Baso % (Auto) 0.3, Neut # (Auto) 6.7, Lymph # (Auto) 1.2, [place] # (Auto) 0.6, Eos # (Auto) 0.0, Baso # (Auto) 0.0 05/28/18 06:45: Sodium 132 L, Potassium 4.3, Chloride 99, Carbon Dioxide 24, Anion Gap 13.3, BUN 18, Creatinine 1.12 H, Estimated Creat Clear 66, Estimated GFR 49 L, Est GFR ( Amer) 59, Glucose 112 H, Calcium 8.6, Total Bilirubin 2.0 H, AST 84 H, ALT 40, Alkaline Phosphatase 139 H, Total Protein 7.0, Albumin 2.2 L, Globulin 4.8 H, Albumin/Globulin Ratio 0.5 L I & O for Last 24 hours: Intake & Output 05/26/18 05/27/18 05/28/18 05/29/18 11:59 11:59 11:59 11:59 Intake Total 1200 / 1200 600 / 600 960 / 960 Balance 1200 / 1200 600 / 600 960 / 960 Weight 179 lb 6 oz 178 lb 5 oz 180 lb 6 oz - Constitutional no acute distress - *Routine HEENT Exam Head: Present: normocephalic ENT: Present: mucous membranes moist - *Routine Respiratory Exam Present: decreased breath sounds, CTA bilaterally - *Routine Cardiovascular Exam Present: RRR - *Routine Abdominal Exam Present: soft, distended - *Routine Extremities Exam Present: edema Comments: There is edema and tenderness of the midfoot area. No ecchymoses. - *Routine Neurological Exam Present: alert, oriented X3 Assessment and Plan (1) Cirrhosis of liver with ascites Current visit: Yes Status: Acute Category: Medical Code(s): K74.60 - Unspecified cirrhosis of liver; R18.8 - Other ascites (2) Dehydration Current visit: Yes Status: Acute Category: Medical Code(s): E86.0 - Dehydration (3) Nausea and vomiting Current visit: Yes Status: Acute Category: Medical Code(s): R11.2 - Nausea with vomiting, unspecified (4) Pleural effusion associated with hepatic disorder Current visit: Yes Status: Acute Category: Medical Code(s): K76.9 - Liver disease, unspecified; J91.8 - Pleural effusion in other conditions classified elsewhere (5) Clostridium difficile enterocolitis Current visit: Yes Status: Acute Category: Medical Code(s): A04.72 - Enterocolitis due to Clostridium difficile, not specified as recurrent (6) Hypokalemia Current visit: Yes Status: Acute Category: Medical Code(s): E87.6 - Hypokalemia (7) Coronary artery disease Current visit: Yes Status: Acute Category: Medical Code(s): I25.10 - Atherosclerotic heart disease of [place] coronary artery without angina pectoris (8) History of coronary artery bypass graft x 3 Current visit: Yes Status: Acute C
[2018-05-28 15:51] VITALS: BP 128/75; PULSE 78; RESP 17; TEMP 37; O2SAT 97
--- NOTE | 2018-05-28 17:49 | PC.NURSE ---
pt in chair watching tv. pt expressed no needs at this time and was given fresh ice water.
[2018-05-28 19:45] VITALS: BP 109/51; PULSE 68; RESP 18; TEMP 37.1; O2SAT 92
--- NOTE | 2018-05-29 | US_ITS ---
US biopsy guidance HISTORY: Ascites, difficulty breathing ITS.REASON: ASCITES-- PARACENTESIS ORDERING PHYSICIAN: Irene Mena MD PATIENT AGE: 63 years Comparison: None PROCEDURE: Following obtaining informed consent and after appropriate Time out, under aseptic conditions and local anesthesia with 1% buffered lidocaine using sonographic guidance a 4 [place] one-step catheter was inserted into the largest pocket of fluid localized in the right lower quadrant. Approximately 6000 mL of Serosanguineous fluid was drained. The patient tolerated the procedure well and left the radiology suite in stable condition. IMPRESSION: Successful sonographic guided paracentesis without complication
[2018-05-29 03:33] VITALS: BP 120/76; PULSE 76; RESP 20; TEMP 36.6; O2SAT 91
--- NOTE | 2018-05-29 04:24 | PC.NURSE ---
PT HAS SLEPT AT INTERVALS. CONTINUES TO REFUSE LACTULOSE. INSTRUCTED PATIENT ON IMPORTANCE OF TAKING LACTULOSE. ABDOMEN REMAINS DISTENDED. BILAT FEET WITH EDEMA NOTED. PT STATES LEFT FOOT SORE.
[2018-05-29 07:49] LABS: Anion Gap 13.8 mEq/L (5-15); Blood Urea Nitrogen 19 mg/dL (7-18); Calcium 8.6 mg/dL (8.5-10.1); Carbon Dioxide 22 mmol/L (21.0-32.0); Chloride 101 mmol/L (98-107); Creatinine Clearance Estimated 73 mL/min (50-200); Creatinine,Serum 1.02 mg/dL (0.55-1.02); Estimated Glomerular Filt Rate 55 ml/min (>60); GFR (African American) 66 ML/MIN (>60); Potassium 4.8 mmoL/L (3.5-5.1); Sodium 132 mmol/L (136-145)
[2018-05-29 07:57] LABS: Glucose 105 mg/dL (74-106)
[2018-05-29 08:00] VITALS: BP 125/50; PULSE 76; RESP 20; TEMP 36.7; O2SAT 100
--- NOTE | 2018-05-29 08:35 | HMH.ACPN2 ---
Internal Medicine - PN: Subj *Date: 05/29/18 *Time: 08:35 Interval history: Patient states she feels horrible. She is afraid to go home. She did sleep some last night. She has constant discomfort in her abdomen. She is short of breath. Bowels are moving less. She does not take the lactulose. X-ray of the right foot shows soft tissue injury. Kidney function has improved. Exam Vital signs and Labs for Last 24 Hours: Temp Pulse Resp BP Pulse Ox 97.8 F 76 20 120/76 91 L 05/29/18 03:33 05/29/18 03:33 05/29/18 03:33 05/29/18 03:33 05/29/18 03:33 Laboratory Results - last 24 hr 05/29/18 07:00: Sodium 132 L, Potassium 4.8, Chloride 101, Carbon Dioxide 22, Anion Gap 13.8, BUN 19 H, Creatinine 1.02, Estimated Creat Clear 73, Estimated GFR 55 L, Est GFR ( Amer) 66, Glucose 105, Calcium 8.6 I & O for Last 24 hours: Intake & Output 05/26/18 05/27/18 05/28/18 05/29/18 11:59 11:59 11:59 11:59 Intake Total 1200 / 1200 600 / 600 960 / 960 480 / 480 Output Total Balance 1200 / 1200 600 / 600 960 / 960 479 / 479 Weight 179 lb 6 oz 178 lb 5 oz 180 lb 6 oz 180 lb 6 oz Radiology Reports for the Last 24 Hours: 05/28/2018 x-ray of right foot. IMPRESSION: Diffuse soft tissue injury of the forefoot, no definite fracture seen - Constitutional no acute distress Comments: Appears not to feel well - *Routine Respiratory Exam Present: CTA bilaterally, diminished air movement (Posteriorly) - *Routine Cardiovascular Exam Present: RRR - *Routine Abdominal Exam Present: normoactive bowel sounds, tenderness (Positive for fluid), distended - *Routine Extremities Exam Present: edema (Bilateral leg) - *Routine Neurological Exam Present: alert, oriented X3 Assessment and Plan (1) Cirrhosis of liver with ascites Current visit: Yes Status: Acute Category: Medical Code(s): K74.60 - Unspecified cirrhosis of liver; R18.8 - Other ascites (2) Dehydration Current visit: Yes Status: Acute Category: Medical Code(s): E86.0 - Dehydration (3) Nausea and vomiting Current visit: Yes Status: Acute Category: Medical Code(s): R11.2 - Nausea with vomiting, unspecified (4) Pleural effusion associated with hepatic disorder Current visit: Yes Status: Acute Category: Medical Code(s): K76.9 - Liver disease, unspecified; J91.8 - Pleural effusion in other conditions classified elsewhere (5) Clostridium difficile enterocolitis Current visit: Yes Status: Acute Category: Medical Code(s): A04.72 - Enterocolitis due to Clostridium difficile, not specified as recurrent (6) Hypokalemia Current visit: Yes Status: Acute Category: Medical Code(s): E87.6 - Hypokalemia (7) Coronary artery disease Current visit: Yes Status: Acute Category: Medical Code(s): I25.10 - Atherosclerotic heart disease of [place] coronary artery without angina pectoris (8) History of coronary artery bypass graft x 3 Current visit: Yes Status: Acute Category: Surgical Code(s): Z95.1 - Presence of aortocoronary bypass graft (9) Rheumatoid arthritis Current visit: Yes Status: Acute Category: Medical Code(s): M06.9 - Rheumatoid arthritis, unspecified (10) Goiter Current visit: Yes Status: Acute Category: Medical Code(s): E04.9 - Nontoxic goiter, unspecified (11) Smoking history Current visit: Yes Status: Acute Category: Medical Code(s): Z87.891 - Personal history of nicotine dependence (12) Right foot injury Current visit: Yes Status: Acute Category: Medical Code(s): S99.921A - Unspecified injury of right foot, initial encounter - Assessment and plan all Dx Assessment and Plan for all problems:: Patient states she possibly may go home today. Will consult with Dr. Mena.
--- NOTE | 2018-05-29 08:38 | P.PN_ITS ---
Internal Medicine - PN: Subj *Date: 05/29/18 *Time: 08:35 Interval history: Patient states she feels horrible. She is afraid to go home. She did sleep some last night. She has constant discomfort in her abdomen. She is short of breath. Bowels are moving less. She does not take the lactulose. X-ray of the right foot shows soft tissue injury. Kidney function has improved. Exam Vital signs and Labs for Last 24 Hours: Temp Pulse Resp BP Pulse Ox 97.8 F 76 20 120/76 91 L 05/29/18 03:33 05/29/18 03:33 05/29/18 03:33 05/29/18 03:33 05/29/18 03:33 Laboratory Results - last 24 hr 05/29/18 07:00: Sodium 132 L, Potassium 4.8, Chloride 101, Carbon Dioxide 22, Anion Gap 13.8, BUN 19 H, Creatinine 1.02, Estimated Creat Clear 73, Estimated GFR 55 L, Est GFR ( Amer) 66, Glucose 105, Calcium 8.6 I & O for Last 24 hours: Intake & Output 05/26/18 05/27/18 05/28/18 05/29/18 11:59 11:59 11:59 11:59 Intake Total 1200 / 1200 600 / 600 960 / 960 480 / 480 Output Total Balance 1200 / 1200 600 / 600 960 / 960 479 / 479 Weight 179 lb 6 oz 178 lb 5 oz 180 lb 6 oz 180 lb 6 oz Radiology Reports for the Last 24 Hours: 05/28/2018 x-ray of right foot. IMPRESSION: Diffuse soft tissue injury of the forefoot, no definite fracture seen - Constitutional no acute distress Comments: Appears not to feel well - *Routine Respiratory Exam Present: CTA bilaterally, diminished air movement (Posteriorly) - *Routine Cardiovascular Exam Present: RRR - *Routine Abdominal Exam Present: normoactive bowel sounds, tenderness (Positive for fluid), distended - *Routine Extremities Exam Present: edema (Bilateral leg) - *Routine Neurological Exam Present: alert, oriented X3 Assessment and Plan (1) Cirrhosis of liver with ascites Current visit: Yes Status: Acute Category: Medical Code(s): K74.60 - Unspecified cirrhosis of liver; R18.8 - Other ascites (2) Dehydration Current visit: Yes Status: Acute Category: Medical Code(s): E86.0 - Dehydration (3) Nausea and vomiting Current visit: Yes Status: Acute Category: Medical Code(s): R11.2 - Nausea with vomiting, unspecified (4) Pleural effusion associated with hepatic disorder Current visit: Yes Status: Acute Category: Medical Code(s): K76.9 - Liver disease, unspecified; J91.8 - Pleural effusion in other conditions classified elsewhere (5) Clostridium difficile enterocolitis Current visit: Yes Status: Acute Category: Medical Code(s): A04.72 - Enterocolitis due to Clostridium difficile, not specified as recurrent (6) Hypokalemia Current visit: Yes Status: Acute Category: Medical Code(s): E87.6 - Hypokalemia (7) Coronary artery disease Current visit: Yes Status: Acute Category: Medical Code(s): I25.10 - Atherosclerotic heart disease of [place] coronary artery without angina pectoris (8) History of coronary artery bypass graft x 3 Current visit: Yes Status: Acute Category: Surgical Code(s): Z95.1 - Presence of aortocoronary bypass graft (9) Rheumatoid arthritis Current visit: Yes Status: Acute Category: Medical Code(s): M06.9 - Rheumatoid arthritis, unspecified (10) Goiter Current visit: Yes Status: Acute Category: Medical Code(s): E04.9 - Nontoxic goiter, unspecified
--- NOTE | 2018-05-29 10:27 | PC.NURSE ---
Patient refusing bath at this time. Patient's nurse notified.
--- NOTE | 2018-05-29 12:43 | PC.NURSE ---
1230- Dressing to right side of abdomen dry and intact.
--- NOTE | 2018-05-29 13:50 | DIET.NUTRFU ---
[facility] She remains with multiple loose stools throughout the day. She has been seen by Dr Guo who recommends low sodium low carbohydrate, low fat and high protein diet for home. Reviewed diet recommendations with patient and provided written list of high protein food sources. Pt to supplement diet with whey protein powder. recommend probiotic supplement for diarrhea.
--- NOTE | 2018-05-29 14:14 | HMH.PHAINT ---
RADIOLOGY TOLD SHAQUILLE ON THAT WE HAD A STANDING ORDER FOR ALBUMIN AFTER PARACENTESIS. I TOLD HER WE DO NOT BUT I WOULD GET AHOLD OF DR BUNN OR HIS OFFICE AND GET AN ORDER. I SPOKE WITH SHANTAL AND GOT A VERBAL ORDER TO DO 6 GM/L FOR EACH LITER >4L TAKEN OFF. 5400ML TAKEN OFF.
[2018-05-29 16:00] VITALS: BP 111/41; PULSE 72; RESP 20; TEMP 36.5; O2SAT 98
--- NOTE | 2018-05-29 17:51 | PC.NURSE ---
Patient upset that MD is sending her home. States that she is not leaving she keeps having to poop. This nurse explained to patient about discharge and medical need for inpatient stay. Patient upset and states that it will be a little bit before she can get a ride.
--- NOTE | 2018-05-29 18:24 | SW/DCPLANNER ---
Addendum entered by Katarina Crane 05/29/18 18:27: Radha from [facility] has stated that they do not carry k-pads at [facility]....I have informed patient. Original Note: Spoke with this patient this evening regarding discharge plans. Patient stated that she has everything she needs at home. Patient did request a k-pad like the one she had been using while in hospital. I informed patient that I will call and speak with Jackie tomorrow regarding equipment and follow up with her via phone call. Patient will discharge home this evening.
--- NOTE | 2018-05-30 21:04 | HMH.DCSUM ---
General - General Admission date:: 05/17/18 Discharge date: 05/29/18 HPI HPI: This 62-year-old white female patient was admitted today from the office of [facility]. She was admitted with nausea and vomiting. She has had increase in abdominal girth and distention. She states that she has had no bowel movement for the past 2 weeks. She has been noncompliant in her office follow-up. She has known coronary artery disease. Her workup today has shown hypokalemia at 2.8. The CT of her abdomen and pelvis reveals evidence of cirrhosis and ascites. She is not a drinker, thus the etiology of this needs to be determined. History of colonoscopy in 2010. Hospital Course Hospital Course: The patient's CT revealed ascites and cirrhosis and there was some questionable thickening of the colon as well. Pleural effusion was evidenced on the CT therefore an echocardiogram was ordered as well as a chest x-ray. The patient was placed on IV and p.o. potassium supplementation and was started zofran for nausea. Gastroenterology was consulted and a hepatitis panel was ordered as well as an ultrasound of the gallbladder. Patient's chest x-ray showed a moderate-sized left pleural effusion with left lower lobe consolidation. Her gallbladder ultrasound revealed cirrhosis with ascites. There was turbulent blood flow in the portal vein area and a distended gallbladder with thick appearing sludge in the region of the neck of the gallbladder. The patient's echo showed a mildly enlarged left atrium and an EF of 50%. It revealed grade 2 diastolic dysfunction and a left-sided pleural effusion. The patient's nausea did not improve with ondansetron and she had to be started on Reglan. Her electrolytes did improve. The patient was seen by Dr. Guo who felt she had mildly decompensated cirrhosis. He suspected Alberto/nonalcoholic fatty liver disease. He felt she would need a diagnostic/therapeutic paracentesis. He did place the patient on Aldactone and, due to some clinical encephalopathy, placed her on lactulose and Xifaxan. He sent serologies for autoimmune hepatitis and inherited forms of liver disease as well as an alpha-fetoprotein. He felt she would need to follow-up in his office after discharge and discuss doing an EGD and colonoscopy due to history of prior adenomatous polyps. The patient's PCR panel detected Clostridium difficile in her stool therefore she was started on metronidazole. The patient's hepatitis panel was negative. Within a few days the patient felt like the fluid in her abdomen was building up again. GI was once again consulted for possible additional paracentesis. She was seen by Apple Underwood who felt she would need to continue diuretics and repeat a paracentesis with albumin replacement if more than 4 L were removed. The patient had over 4 L removed on the second paracentesis and received IV albumin. Within a few more days her stomach felt distended again. She continued to remain nauseated and have diarrhea. She was started on 40 mg of IV Lasix IV and Dr. Guo was once again consulted. Dr. Guo saw the patient and felt she had intractable ascites. He felt her symptoms were typical of someone with more advanced liver disease. He felt she should be started on Lasix and should remain on spironolactone at 200 mg a day. He felt she might require frequent paracentesis due to an elevated meld score and signs of liver failure. He presumed the etiology was Alberto and possibly the effect of amiodarone. He recommended holding her amiodarone. He felt she would need to be on a low-sodium diet for the ascites as well as a reduced fat and carbohydrate diet with increased protein. He felt she would need close follow-up within a few weeks as an outpatient. The patient's diarrhea continued but abdominal pain improved. Her metoclopramide was discontinued. She was continued on lactulose. Her liver functions stabilized and
--- NOTE | 2018-05-30 21:28 | P.DS_ITS ---
General - General Admission date:: 05/17/18 Discharge date: 05/29/18 HPI HPI: This 62-year-old white female patient was admitted today from the office of [facility]. She was admitted with nausea and vomiting. She has had increase in abdominal girth and distention. She states that she has had no bowel movement for the past 2 weeks. She has been noncompliant in her office follow-up. She has known coronary artery disease. Her workup today has shown hypokalemia at 2.8. The CT of her abdomen and pelvis reveals evidence of cirrhosis and ascites. She is not a drinker, thus the etiology of this needs to be determined. History of colonoscopy in 2010. Hospital Course Hospital Course: The patient's CT revealed ascites and cirrhosis and there was some questionable thickening of the colon as well. Pleural effusion was evidenced on the CT therefore an echocardiogram was ordered as well as a chest x-ray. The patient was placed on IV and p.o. potassium supplementation and was started zofran for nausea. Gastroenterology was consulted and a hepatitis panel was ordered as well as an ultrasound of the gallbladder. Patient's chest x-ray showed a moderate-sized left pleural effusion with left lower lobe consolidation. Her gallbladder ultrasound revealed cirrhosis with ascites. There was turbulent blood flow in the portal vein area and a distended gallbladder with thick appearing sludge in the region of the neck of the gallbladder. The patient's echo showed a mildly enlarged left atrium and an EF of 50%. It revealed grade 2 diastolic dysfunction and a left-sided pleural effusion. The patient's nausea did not improve with ondansetron and she had to be started on Reglan. Her electrolytes did improve. The patient was seen by Dr. Guo who felt she had mildly decompensated cirrhosis. He suspected Alberto/nonalcoholic fatty liver disease. He felt she would need a diagnostic/therapeutic paracentesis. He did place the patient on Aldactone and, due to some clinical encephalopathy, placed her on lactulose and Xifaxan. He sent serologies for autoimmune hepatitis and inherited forms of liver disease as well as an alpha-fetoprotein. He felt she would need to follow-up in his office after discharge and discuss doing an EGD and colonoscopy due to history of prior adenomatous polyps. The patient's PCR panel detected Clostridium difficile in her stool therefore she was started on metronidazole. The patient's hepatitis panel was negative. Within a few days the patient felt like the fluid in her abdomen was building up again. GI was once again consulted for possible additional paracentesis. She was seen by Apple Underwood who felt she would need to continue diuretics and repeat a paracentesis with albumin replacement if more than 4 L were removed. The patient had over 4 L removed on the second paracentesis and received IV albumin. Within a few more days her stomach felt distended again. She continued to remain nauseated and have diarrhea. She was started on 40 mg of IV Lasix IV and Dr. Guo was once again consulted. Dr. Guo saw the patient and felt she had intractable ascites. He felt her symptoms were typical of someone with more advanced liver disease. He felt she should be started on Lasix and should remain on spironolactone at 200 mg a day. He felt she might require frequent paracentesis due to an elevated meld score and signs of liver failure. He presumed the etiology was Alberto and possibly the effect of amiodarone. He recommended holding her amiodarone. He felt she would need to be on a low- sodium diet for the ascites as well as a reduced fat and carbohydrate diet with increased protein. H
== END 2018-05-29 19:24 | disposition home or self-care (01) | DRG 433 ==
PROVIDERS: Internal Medicine Gastroenterology; Nurse Practitioner Acute Care; Physician Assistant; Admitting Provider Family Medicine; PCP Family Medicine; Visit Provider Family Medicine
DX: K74.60 Unspecified cirrhosis of liver (principal); R18.8 Other ascites; A04.72 Enterocolitis due to Clostridium difficile, not specified as recurrent; I50.30 Unspecified diastolic (congestive) heart failure; K75.81 Nonalcoholic steatohepatitis (NASH); Z95.1 Presence of aortocoronary bypass graft; E86.0 Dehydration; E87.6 Hypokalemia; S99.921A Unspecified injury of right foot, initial encounter; W18.30XA Fall on same level, unspecified, initial encounter; Y92.230 Patient room in hospital as the place of occurrence of the external cause; M06.9 Rheumatoid arthritis, unspecified
CPT/HCPCS: 49083; 36415; 71046; 73630; 74177; 76705; 76942; 80048; 80053; 80074; 82042; 82103; 82104; 82105; 82140; 82150; 82164; 82550; 82553; 82728; 82784; 83516; 83690; 84155; 84443; 84484; 85025; 85610; 86225; 86235; 86255; 86256; 86376; 87070; 87077; 87205; 87507; 89051; 93005; 93306; 94761; 97162; J2405; P9047; Q9967

== ENCOUNTER 2018-06-08 15:42 | Inpatient (IN) ==
--- NOTE | 2018-06-08 16:40 | History & Physical Report ---
*Admission Date: 06/08/18 <Rebeka Ramos - 06/08/18 16:42> *Chief complaint: weakness, medical noncompliance, cirrhosis/ascites <Rebeka Ramos - 06/08/18 16:42> *History of present illness: Ms. Starks is a 63-year-old female who was just recently discharged from [facility] on 05/29/18 after an admission for cirrhosis of the liver with ascites, dehydration, and C. difficile enterocolitis. The patient had to have 3 paracentesis procedures done while in the hospital due to a reaccumulation of her ascites. She was seen in consultation by Dr. Guo who wanted to follow-up with her in his office after discharge. The patient presented to [facility] today after missing a few of her follow-up appointments that were scheduled. She states she has been so sick she was unable to get to the doctor or to see Dr. Guo. She states she is extremely weak. She lives at home alone and has been falling due to weakness. She states she can hardly walk arrives at the office today in a wheelchair. She has had continued drainage from the paracentesis site and radiology did place a drainage bag over the wound to collect the fluid. She states she has been emptying this bag daily. She states she was instructed upon discharge to quit taking all of her normal home medications and start taking the few medications that were prescribed to her during at her discharge. According to the discharge summary, the patient was to continue her home medications and add these additional medicines to her regimen. She states she was unable to afford the Xifaxan because it was too expensive. She has been taking spironolactone, potassium 10 mEq a day, Zofran as needed, and lactulose. She states she has continued to have diarrhea. She remains nauseated and is unable to eat. She has been trying to drink. She will be admitted and labs and blood cultures will be drawn. Dr. Guo will be consulted. <Rebeka Ramos - 06/08/18 16:42> [facility] History I have reviewed the patient's past medical history: Yes <Rebeka Ramos - 06/08/18 16:46> Medical History: Reports:: Hyperlipidemia, Hypertension, Myocardial Infarction (x4) Denies:: Cancer, Diabetes Mellitus Type 1, Diabetes Mellitus Type 2 <Rebeka Ramos 02/21/19 16:42> *Have you ever received a pneumonia vaccine?: No <Rebeka Ramos 06/08/18 16:42> *Have you received a flu vaccine this season?: No <Rebeka Ramos 06/08/18 16:42> Other Medical History: Reports: Anemia, Arthritis (rheumotoid arthritis), Sinus Problems <Rebeka Ramos 06/08/18 16:42> Comment:: Cirrhosis with ascites, C. Diff, HCM <Rebeka Ramos 06/08/18 16:42> Laterality Cases: Bilateral: Cataract <Rebeka Ramos 06/08/18 16:42> Other Surgeries: Yes: CABG, Colonoscopy, Other (EGD, paracentesis x 3, oral surgery) <Rebeka Ramos 06/08/18 16:42> - *Social History Smoking Status: Never smoker <Rebeka Ramos 06/08/18 16:46> Alcohol Intake: never <Rebeka Ramos 06/08/18 16:42> *Occupational Status:: retired <Rebeka Ramos 06/08/18 16:42> *Travel in the last 8 weeks: None <Rebeka Ramos 06/08/18 16:42> - Psychiatric History Expresses thoughts of harming self/others: None <Rebeka Ramos 06/08/18 16:42> Suicide Plan Description: No Plan <Rebeka Ramos 06/08/18 16:42> Family Hx:: Coronary Artery Disease, Diabetes, Hyperlipidemia, Hypertension, Other (COPD, Hep A) <Rebeka Ramos 06/08/18 17:19> Review of Systems - Constitutional Reports fatigue, Reports lack of energy, Reports weakness <Rebeka Ramos 06/08/18 17:19> - Eyes Denies blurry vision, Denies double vision <Rebeka Ramos 06/08/18 17:19> - ENT Denies nasal congestion, Denies sore throat <Rebeka Ramos 06/08/18 17:19> - *Cardiovascular Reports shortness of breath, Denies chest pain <Rebeka Ramos 06/08/18 17:19> - *Respiratory Reports shortness of breath, Denies chest congestion, Denies cough <TylerkandiceRebeka - 06/08/18 17:19> - *Gastrointestinal Reports abdominal pain, Reports loose stools, Reports nausea, Denies vomiting <Rebeka Ramos 06/08/18 17:19> - *Genitourinary Denies difficulty urinating, Denies painful urination <Rebeka Ramos - 06/08/18 17:19> - *Musculoskeletal Reports joint pain <Rebeka Ramos 06/08/18 17:19> - *Neurologic Reports frequent falls, Reports dizziness, Reports weakness, Denies headache(s) <Rebeka Ramos 06/08/18 17:19> Meds Home Medications Medication Instructions Recorded Confirmed Type Albuterol Sulfate [Albuterol HFA 2 puffs IH Q6HP PRN 05/17/18 06/08/18 History Inhaler] Citalopram Hydrobromide [Celexa 20 mg PO DAILY 05/17/18 06/08/18 History 20mg Tablet] Codeine/Butalbital/ASA/Caffein 1 each PO QIDP PRN 05/17/18 06/08/18 History [Fiorinal-Cod [id number] Cap] Esomeprazole Magnesium [Nexium] 20 mg PO BID 05/17/18 06/08/18 History Ferrous Sulfate 325 mg PO DAILY 05/17/18 06/08/18 History Folic Acid [Folic Acid 1mg tablet] 1 mg PO DAILY 05/17/18 06/08/18 History Furosemide [Lasix 20mg tablet] 20 mg PO DAILY 05/17/18 06/08/18 History Gabapentin [Gabapentin 300mg Cap] 300 mg PO TID 05/17/18 06/08/18 History Ipratropium/Albuterol Sulfate 3 ml IH QIDP PRN 05/17/18 06/08/18 History [Duoneb 3mL neb] L.acidoph,Paracasei, B.lactis 1 each PO DAILY 05/17/18 06/08/18 History [Probiotic] LORazepam [Lorazepam 0.5mg Tablet] 0.5 mg PO TIDP PRN 05/17/18 06/08/18 History Metoprolol Succinate 25 mg PO DAILY 05/17/18 06/08/18 History Nitroglycerin [Nitrostat 0.4mg SL 0.4 mg SL Q5MINP PRN 05/17/18 06/08/18 History Tablet] [place]-3 Fatty Acids/Fish Oil 1 each PO DAILY 05/17/18 06/08/18 History [[place] 3 Fish Oil Softgel] Triamterene/Hydrochlorothiazid 1 tab PO DAILY 05/17/18 06/08/18 History [Maxzide 37.5 mg-25 mg Tablet] Ubidecarenone [Co Q-10] 10 mg PO DAILY 05/17/18 06/08/18 History metHOTREXate sodium [Trexall] 15 mg PO .[id number] 05/17/18 06/08/18 History Ondansetron HCl/Pf [Zofran 4mg/2mL 4 mg IV Q6HP PRN #20 vial 05/29/18 06/08/18 Rx vial] Lactulose [Chronulac 20gm/30mL UDC] 20 gm PO BID 06/08/18 06/08/18 History Potassium Chloride [Klor-Con 10mEq 10 meq PO DAILY 06/08/18 06/08/18 History tab] Rifaximin [Xifaxin 200mg Tablet] 200 mg PO BID 06/08/18 06/08/18 History Spironolactone [Aldactone 25mg 200 mg PO DAILY 06/08/18 06/08/18 History Tab] <Rebeka Ramos - 06/08/18 16:42> Allergies Allergy/AdvReac Type Severity Reaction Status Date / Time coffee (Coffea arabica) Allergy Severe Difficulty Verified 05/29/18 13:53 Breathing Fish Containing Products Allergy Severe Difficulty Verified 05/29/18 13:53 Breathing fish derived Allergy Severe Difficulty Verified 05/29/18 13:53 Breathing morphine Allergy Severe Hallucinati Verified 05/17/18 13:00 ng Penicillins Allergy Severe Anaphylaxis Verified 05/17/18 14:13 strawberry Allergy Severe Difficulty Verified 05/29/18 13:53 Breathing garlic Allergy Intermediate Vomiting Verified 05/29/18 13:53 promethazine Allergy Intermediate Nausea Verified 05/29/18 13:54 <Rebeka Ramos - 06/08/18 16:42> Exam Vital signs and Labs for Last 24 Hours: Temp Pulse Resp BP Pulse Ox 97.5 F L 81 20 131/71 96 06/08/18 16:00 06/08/18 16:00 06/08/18 16:00 06/08/18 16:00 06/08/18 16:00 <Lawrence Valdes - 06/08/18 17:23> Temp Pulse Resp BP Pulse Ox 97.5 F L 81 20 131/71 96 06/08/18 16:00 06/08/18 16:00 06/08/18 16:00 06/08/18 16:00 06/08/18 16:00 <Rebeka Ramos - 06/08/18 17:19> I & O for Last 24 hours: Intake & Output 06/06/18 06/07/18 06/08/18 06/09/18 11:59 11:59 11:59 11:59 Weight 158 lb 8 oz <LucioLawrence - 06/08/18 17:23> Intake & Output 06/06/18 06/07/18 06/08/18 06/09/18 11:59 11:59 11:59 11:59 Weight 158 lb 8 oz <Rebeka Ramos 06/08/18 16:42> - Constitutional Comments: Does not appear to feel well, in a wheelchair <Rebeka Ramos 06/08/18 17:19> - *Routine HEENT Exam Head: Present: normocephalic, atraumatic <Rebeka Ramos 06/08/18 17:19> Eye: Present: EOMI, PERRL <Rebeka Ramos 06/08/18 17:19> ENT: Present: mucous membranes dry <Rebeka Ramos 06/08/18 17:19> - *Routine Neck Exam Present: supple. Absent: lymphadenopathy <Rebeka Ramos 06/08/18 17:19> - *Routine Respiratory Exam Present: CTA bilaterally <Rebeka Ramos 06/08/18 17:19> - *Routine Cardiovascular Exam Present: RRR <Rebeka Ramos 06/08/18 17:19> - *Routine Abdominal Exam Present: soft, normoactive bowel sounds, tenderness (diffuse but worse in the epigastric area), distended <Rebeka Ramos - 06/08/18 17:19> Comments: drainage into bag from previous paracentesis site <Rebeka Ramos - 06/08/18 17:19> - *Routine Extremities Exam Present: edema (trace bilateral LE's) <Rebeka Ramos - 06/08/18 17:19> - *Routine Skin Exam Present: jaundice <Rebeka Ramos - 06/08/18 17:19> - *Routine Neurological Exam confused at times <Rebeka Ramos 06/08/18 17:19> Assessment and Plan (1) Weakness Current visit: Yes Status: Acute Category: Medical Code(s): R53.1 - Weakness (2) Medical non-compliance Current visit: Yes Status: Acute Category: Medical Code(s): Z91.19 - Patient's noncompliance with other medical treatment and regimen (3) Cirrhosis of liver with ascites Current visit: No Status: Chronic Category: Medical Code(s): K74.60 - Unspecified cirrhosis of liver; R18.8 - Other ascites (4) Coronary artery disease Current visit: No Status: Chronic Category: Medical Code(s): I25.10 - Atherosclerotic heart disease of [place] coronary artery without angina pectoris (5) History of coronary artery bypass graft x 3 Current visit: No Status: Chronic Category: Surgical Code(s): Z95.1 - Presence of aortocoronary bypass graft (6) Rheumatoid arthritis Current visit: No Status: Chronic Category: Medical Code(s): M06.9 - Rheumatoid arthritis, unspecified <Lawrence Valdes - 06/08/18 17:23> (1) Weakness Current visit: Yes Status: Acute Category: Medical Code(s): R53.1 - Weakness (2) Medical non-compliance Current visit: Yes Status: Acute Category: Medical Code(s): Z91.19 - Patient's noncompliance with other medical treatment and regimen (3) Cirrhosis of liver with ascites Current visit: No Status: Chronic Category: Medical Code(s): K74.60 - Unspecified cirrhosis of liver; R18.8 - Other ascites (4) Coronary artery disease Current visit: No Status: Chronic Category: Medical Code(s): I25.10 - Atherosclerotic heart disease of [place] coronary artery without angina pectoris (5) History of coronary artery bypass graft x 3 Current visit: No Status: Chronic Category: Surgical Code(s): Z95.1 - Presence of aortocoronary bypass graft (6) Rheumatoid arthritis Current visit: No Status: Chronic Category: Medical Code(s): M06.9 - Rheumatoid arthritis, unspecified <Rebeka Ramos - 06/09/18 08:32> - Assessment and plan all Dx Assessment and Plan for all problems:: Saw patient, agree with above note. <Lawrence Valdes - 06/08/18 17:23> Patient will be admitted and labs and blood cultures will be drawn. Will wait on lab results before starting any medication or IVF's. Will start on zofran for nausea. Will consult Dr. Guo. <Rebeka Ramos - 06/08/18 17:19>
[2018-06-08 18:35] LABS: Basophils % 0.1 % (0.1-2.0); Eosinophils % 0.4 % (0.1-12.0); Hematocrit 38.9 % (37.0-47.0); Hemoglobin 12.5 g/dL (12.2-16.2); Lymphocytes # 0.9 K/mm3 (0.7-4.5); Lymphocytes % 10.1 % (10-50); Mean Corpuscular HGB Conc 32.1 g/dL (31.8-35.4); Mean Corpuscular Hemoglobin 28.5 pg (27.0-31.2); Mean Corpuscular Volume 88.9 fl (81-99); Mean Platelet Volume 8.9 fl (7.4-10.4); Monocytes # 0.4 K/mm3 (0.1-1.0); Neutrophils # 7.2 K/mm3 (1.8-7.8); Neutrophils % 84.6 % (37.0-80.0); Platelet Count 167 K/mm3 (142-424); Red Blood Count 4.37 M/mm3 (4.20-5.40); Red Cell Distribution Width 22.7 % (11.5-17.5); White Blood Count 8.5 K/mm3 (4.8-10.8)
[2018-06-08 19:29] LABS: Albumin Level 2.4 gm/dL (3.4-5.0); Albumin/Globulin Ratio 0.5 (1.1-1.8); Anion Gap 14.8 mEq/L (5-15); Bilirubin,Total 2.5 mg/dL (0.2-1.0); Calcium 8.8 mg/dL (8.5-10.1); Globulin 5.1 gm/dl (1.3-3.2); Potassium 4.8 mmoL/L (3.5-5.1); Total Protein,Serum 7.5 gm/dL (6.4-8.2)
--- NOTE | 2018-06-09 07:13 | Pharmacy Consult Notes ---
[facility] Pharmacy VTE Monitoring - Patient Demographics Admission date: 06/08/18 Report Date: 06/09/18 Time: 07:13 Allergies/Adverse Reactions: Patient Allergies coffee (Coffea arabica) Allergy (Severe, Verified 05/29/18 13:53) Difficulty Breathing Fish Containing Products Allergy (Severe, Verified 05/29/18 13:53) Difficulty Breathing fish derived Allergy (Severe, Verified 05/29/18 13:53) Difficulty Breathing morphine Allergy (Severe, Verified 05/17/18 13:00) Hallucinating Penicillins Allergy (Severe, Verified 05/17/18 14:13) Anaphylaxis strawberry Allergy (Severe, Verified 05/29/18 13:53) Difficulty Breathing garlic Allergy (Intermediate, Verified 05/29/18 13:53) Vomiting promethazine Allergy (Intermediate, Verified 05/29/18 13:54) Nausea Height: 1.63 m Weight: 72.83 kg Patient Problems: Current Active Problems Weakness (Acute) Medical non-compliance (Acute) - VTE Risk Labs: VTE Related Lab Results Hgb 12.5 g/dL (12.2-16.2) 06/08/18 16:05 Hct 38.9 % (37.0-47.0) 06/08/18 16:05 Plt Count 167 K/mm3 (142-424) 06/08/18 16:05 BUN 20 mg/dL (7-18) H 06/08/18 16:05 Creatinine 1.06 mg/dL (0.55-1.02) H 06/08/18 16:05 Estimated Creat Clear 62 mL/min (50-200) 06/08/18 16:05 Clinical Trial Participant: No - Prophylaxis VTE Prophylaxis Ordered?: Yes Types of VTE Prophylaxis: TEDS Knee High
--- NOTE | 2018-06-09 08:36 | Progress Note ---
Internal Medicine - PN: Subj *Date: 06/09/18 *Time: 08:32 Interval history: Patient states she is feeling terrible this morning. She still has abdominal pain and her paracentesis site is still draining. She states she is extremely weak. She did rest last night and was able to tolerate a diet with some nausea. Exam Vital signs and Labs for Last 24 Hours: Temp Pulse Resp BP Pulse Ox 98.1 F 81 18 121/63 94 L 06/09/18 07:41 06/09/18 07:41 06/09/18 07:41 06/09/18 07:41 06/09/18 07:41 Laboratory Results - last 24 hr 06/08/18 16:05: WBC 8.5, RBC 4.37, Hgb 12.5, Hct 38.9, MCV 88.9, MCH 28.5, MCHC 32.1, RDW 22.7 H, Plt Count 167, MPV 8.9, Neut % (Auto) 84.6 H, Lymph % (Auto) 10.1, [place] % (Auto) 5.0, Eos % (Auto) 0.4, Baso % (Auto) 0.1, Neut # (Auto) 7.2, Lymph # (Auto) 0.9, [place] # (Auto) 0.4, Eos # (Auto) 0.0, Baso # (Auto) 0.0 06/08/18 16:05: Sodium 129 L, Potassium 4.8, Chloride 96 L, Carbon Dioxide 23, Anion Gap 14.8, BUN 20 H, Creatinine 1.06 H, Estimated Creat Clear 62, Estimated GFR 52 L, Est GFR ( Amer) 63, Glucose 123 H, Calcium 8.8, Total Bilirubin 2.5 H, AST 153 H, ALT 82 H, Alkaline Phosphatase 191 H, Total Protein 7.5, Albumin 2.4 L, Globulin 5.1 H, Albumin/Globulin Ratio 0.5 L 06/08/18 16:05: B-Natriuretic Peptide 193 H I & O for Last 24 hours: Intake & Output 06/06/18 06/07/18 06/08/18 06/09/18 11:59 11:59 11:59 11:59 Intake Total 1357 / 1357 Balance 1357 / 1357 Weight 160 lb 9 oz - Constitutional no acute distress - *Routine Respiratory Exam Present: wheezes. Absent: rales - *Routine Cardiovascular Exam Present: RRR - *Routine Abdominal Exam Present: soft, normoactive bowel sounds, tenderness (diffuse), distended - *Routine Extremities Exam Present: edema Assessment and Plan (1) Weakness Current visit: Yes Status: Acute Category: Medical Code(s): R53.1 - Weakness (2) Medical non-compliance Current visit: Yes Status: Acute Category: Medical Code(s): Z91.19 - Patient's noncompliance with other medical treatment and regimen (3) Cirrhosis of liver with ascites Current visit: No Status: Chronic Category: Medical Code(s): K74.60 - Unspecified cirrhosis of liver; R18.8 - Other ascites (4) Coronary artery disease Current visit: No Status: Chronic Category: Medical Code(s): I25.10 - Atherosclerotic heart disease of [place] coronary artery without angina pectoris (5) History of coronary artery bypass graft x 3 Current visit: No Status: Chronic Category: Surgical Code(s): Z95.1 - Presence of aortocoronary bypass graft (6) Rheumatoid arthritis Current visit: No Status: Chronic Category: Medical Code(s): M06.9 - Rheumatoid arthritis, unspecified (7) Hyponatremia Current visit: Yes Status: Acute Category: Medical Code(s): E87.1 - Hypo- osmolality and hyponatremia (8) Renal insufficiency Current visit: Yes Status: Acute Category: Medical Code(s): N28.9 - Disorder of kidney and ureter, unspecified - Assessment and plan all Dx Assessment and Plan for all problems:: Patient's sodium was low and her renal functions were elevated, therefore she was started on IV fluids at 50 mL an hour last night. She is wheezing this morning so we will start on some duo nebs. Will recheck labs this morning. Dr. Guo to see the patient. Will let Dr. sutherland decide which medications to restart for the patient as she has been off of most all of them since last discharge.
[2018-06-09 10:31] LABS: Basophils % 0.2 % (0.1-2.0); Eosinophils # 0.1 K/mm3 (0.0-0.4); Eosinophils % 0.6 % (0.1-12.0); Hematocrit 37.1 % (37.0-47.0); Hemoglobin 11.9 g/dL (12.2-16.2); Lymphocytes # 0.9 K/mm3 (0.7-4.5); Mean Corpuscular Hemoglobin 28.6 pg (27.0-31.2); Mean Corpuscular Volume 89.5 fl (81-99); Mean Platelet Volume 8.8 fl (7.4-10.4); Monocytes # 0.5 K/mm3 (0.1-1.0); Monocytes % 5.8 % (1.7-9.3); Neutrophils # 6.9 K/mm3 (1.8-7.8); Neutrophils % 82.4 % (37.0-80.0); Platelet Count 154 K/mm3 (142-424); Red Blood Count 4.15 M/mm3 (4.20-5.40); Red Cell Distribution Width 22.8 % (11.5-17.5); White Blood Count 8.4 K/mm3 (4.8-10.8)
[2018-06-09 10:46] LABS: Albumin/Globulin Ratio 0.4 (1.1-1.8); Anion Gap 11.8 mEq/L (5-15); Bilirubin,Total 2.4 mg/dL (0.2-1.0); Calcium 8.5 mg/dL (8.5-10.1); Globulin 5.1 gm/dl (1.3-3.2); Potassium 4.8 mmoL/L (3.5-5.1); Total Protein,Serum 7.1 gm/dL (6.4-8.2)
--- NOTE | 2018-06-09 13:23 | Procedure Note ---
[facility] Procedure Note Procedure Note:: S: Patient fully alert and oriented. She does describe abdominal discomfort and weakness O: Afebrile vital signs stable Cardiovascular regular rate and rhythm Chest clear to auscultation Abdomen ascites present with ostomy bag with minimal fluid. There is some rebound tenderness today Labs: Alkaline phosphatase 191, albumin 2.4, total protein 7.5, total bilirubin 2.5, AST 153, ALT 82, creatinine 1.06 Assessment/plan: 1. Cirrhosis with decompensation and intractable ascites. The patient has had leakage at the prior paracentesis site. Given the fact that she presently has some rebound tenderness, she needs to be covered for spontaneous bacterial peritonitis. I am aware that she recently had C. difficile colitis but I would still recommend Rocephin 1 g daily presently. I would also add albumin 12 g today and tomorrow. I would recommend a good probiotic (Florastor) which can have some activity to defend against C. difficile. The addition of Vanco Flagyl is probably not warranted presently. Long-term, I do feel that she is going to be a management problem and may require hospice care for home health care. If her ascites continues to be intractable, would dial diuretics upwards but this can be at the detriment of kidney function. The patient is hyponatremic which also can be detrimental if this persists and related to cirrhosis and would avoid saline presently though.
[2018-06-10 07:01] LABS: Basophils % 0.1 % (0.1-2.0); Eosinophils % 0.4 % (0.1-12.0); Hematocrit 34.8 % (37.0-47.0); Hemoglobin 11.2 g/dL (12.2-16.2); Lymphocytes # 0.9 K/mm3 (0.7-4.5); Lymphocytes % 11.6 % (10-50); Mean Corpuscular Hemoglobin 28.8 pg (27.0-31.2); Mean Corpuscular Volume 89.9 fl (81-99); Mean Platelet Volume 8.4 fl (7.4-10.4); Monocytes # 0.4 K/mm3 (0.1-1.0); Monocytes % 5.2 % (1.7-9.3); Neutrophils # 6.3 K/mm3 (1.8-7.8); Neutrophils % 82.7 % (37.0-80.0); Platelet Count 125 K/mm3 (142-424); Red Blood Count 3.87 M/mm3 (4.20-5.40); Red Cell Distribution Width 22.7 % (11.5-17.5); White Blood Count 7.6 K/mm3 (4.8-10.8)
[2018-06-10 07:13] LABS: Albumin/Globulin Ratio 0.4 (1.1-1.8); Anion Gap 15.7 mEq/L (5-15); Calcium 8.6 mg/dL (8.5-10.1); Globulin 4.7 gm/dl (1.3-3.2); Potassium 4.7 mmoL/L (3.5-5.1); Total Protein,Serum 6.7 gm/dL (6.4-8.2)
--- NOTE | 2018-06-10 09:39 | Progress Note ---
Internal Medicine - PN: Subj *Date: 06/10/18 *Time: 09:35 Interval history: The patient is relatively comfortable this morning. Slight weight gain is noted. Ammonia level was not elevated. See labs. Saline lock IV. Additional Lasix given today. Note from Dr. Guo is noted and appreciated. She was already on probiotic. He added Levaquin p.o. in recognition of the draining wound. Exam Vital signs and Labs for Last 24 Hours: Temp Pulse Resp BP Pulse Ox 98.2 F 75 24 113/61 95 06/10/18 08:00 06/10/18 08:00 06/10/18 08:00 06/10/18 08:00 06/10/18 08:00 Laboratory Results - last 24 hr 06/09/18 10:20: WBC 8.4, RBC 4.15 L, Hgb 11.9 L, Hct 37.1, MCV 89.5, MCH 28.6, MCHC 32.0, RDW 22.8 H, Plt Count 154, MPV 8.8, Neut % (Auto) 82.4 H, Lymph % (Auto) 11.0, [place] % (Auto) 5.8, Eos % (Auto) 0.6, Baso % (Auto) 0.2, Neut # (Auto) 6.9, Lymph # (Auto) 0.9, [place] # (Auto) 0.5, Eos # (Auto) 0.1, Baso # (Auto) 0.0 06/09/18 10:20: Sodium 128 L, Potassium 4.8, Chloride 98, Carbon Dioxide 23, Anion Gap 11.8, BUN 18, Creatinine 1.18 H, Estimated Creat Clear 56, Estimated GFR 46 L, Est GFR ( Amer) 56 L, Glucose 102, Calcium 8.5, Total Bilirubin 2.4 H, AST 148 H, ALT 76, Alkaline Phosphatase 173 H, Total Protein 7.1, Albumin 2.0 L D, Globulin 5.1 H, Albumin/Globulin Ratio 0.4 L 06/09/18 13:25: Ammonia 49 06/10/18 06:35: WBC 7.6, RBC 3.87 L, Hgb 11.2 L, Hct 34.8 L, MCV 89.9, MCH 28.8, MCHC 32.0, RDW 22.7 H, Plt Count 125 L, MPV 8.4, Neut % (Auto) 82.7 H, Lymph % (Auto) 11.6, [place] % (Auto) 5.2, Eos % (Auto) 0.4, Baso % (Auto) 0.1, Neut # (Auto) 6.3, Lymph # (Auto) 0.9, [place] # (Auto) 0.4, Eos # (Auto) 0.0, Baso # (Auto) 0.0 06/10/18 06:35: Sodium 129 L, Potassium 4.7, Chloride 98, Carbon Dioxide 20 L, Anion Gap 15.7 H, BUN 17, Creatinine 1.12 H, Estimated Creat Clear 60, Estimated GFR 49 L, Est GFR ( Amer) 59, Glucose 103, Calcium 8.6, Total Bilirubin 2.0 H, AST 113 H, ALT 66, Alkaline Phosphatase 173 H, Total Protein 6.7, Albumin 2.0 L, Globulin 4.7 H, Albumin/Globulin Ratio 0.4 L Laboratory Tests 06/08/18 06/09/18 06/09/18 16:05 10:20 13:25 WBC Hgb Hct Sodium Potassium BUN Creatinine AST 153 H 148 H Ammonia 49 06/10/18 06/10/18 06:35 06:35 WBC 7.6 Hgb 11.2 L Hct 34.8 L Sodium 129 L Potassium 4.7 BUN 17 Creatinine 1.12 H AST 113 H Ammonia I & O for Last 24 hours: Intake & Output 06/07/18 06/08/18 06/09/18 06/10/18 11:59 11:59 11:59 11:59 Intake Total 1357 / 1357 280 / 280 Balance 1357 / 1357 280 / 280 Weight 160 lb 9 oz 162 lb 4 oz - Constitutional no acute distress - *Routine Respiratory Exam Present: CTA bilaterally - *Routine Cardiovascular Exam Present: RRR - *Routine Abdominal Exam Present: distended. Absent: tenderness - *Routine Extremities Exam Present: edema (2 Plus) Assessment and Plan (1) Weakness Current visit: Yes Status: Acute Category: Medical Code(s): R53.1 - Weakness (2) Medical non-compliance Current visit: Yes Status: Acute Category: Medical Code(s): Z91.19 - Patient's noncompliance with other medical treatment and regimen (3) Cirrhosis of liver with ascites Current visit: No Status: Chronic Category: Medical Code(s): K74.60 - Unspecified cirrhosis of liver; R18.8 - Other ascites (4) Coronary artery disease Current visit: No Status: Chronic Category: Medical Code(s): I25.10 - Atherosclerotic heart disease of [place] coronary artery without angina pectoris (5) History of coronary artery bypass graft x 3 Current visit: No Status: Chronic Category: Surgical Code(s): Z95.1 - Presence of aortocoronary bypass graft (6) Rheumatoid arthritis Current visit: No Status: Chronic Category: Medical Code(s): M06.9 - Rheumatoid arthritis, unspecified (7) Hyponatremia Current visit: Yes Status: Acute Category: Medical Code(s): E87.1 - Hypo- osmolality and hyponatremia (8) Renal insufficiency Current visit: Yes Status: Acute Category: Medical Code(s): N28.9 - Disorder of kidney and ureter, unspecified - Assessment and plan all Dx Assessment and Plan for all problems:: see orders
--- NOTE | 2018-06-11 16:36 | Progress Note ---
Internal Medicine - PN: Subj *Date: 06/11/18 *Time: 16:33 Interval history: She remained stable. Weight is stable. She reports less drainage from the paracentesis site. She continues nasal O2. Exam Vital signs and Labs for Last 24 Hours: Temp Pulse Resp BP Pulse Ox 98.2 F 75 18 100/53 L 92 L 06/11/18 16:00 06/11/18 16:00 06/11/18 16:00 06/11/18 16:00 06/11/18 16:00 Laboratory Tests 06/10/18 06/10/18 06:35 06:35 WBC 7.6 Hgb 11.2 L Sodium 129 L Potassium 4.7 Chloride 98 BUN 17 Creatinine 1.12 H Total Bilirubin 2.0 H I & O for Last 24 hours: Intake & Output 06/09/18 06/10/18 06/11/18 06/12/18 11:59 11:59 11:59 11:59 Intake Total 1357 / 1357 330 / 330 720 / 720 240 / 240 Balance 1357 / 1357 330 / 330 720 / 720 240 / 240 Weight 160 lb 9 oz 162 lb 4 oz 161 lb 6 oz Microbiology Reports for the Last 24 Hours: Microbiology 06/08/18 16:05 Blood Blood Culture - Preliminary NO GROWTH AFTER 48 HOURS 06/08/18 16:05 Blood Blood Culture - Preliminary NO GROWTH AFTER 48 HOURS - Constitutional no acute distress - *Routine Respiratory Exam Present: decreased breath sounds - *Routine Cardiovascular Exam Present: RRR - *Routine Abdominal Exam Present: soft, distended - *Routine Extremities Exam Present: edema (2+) - *Routine Neurological Exam Present: alert, oriented X3 Ammonia level was normal Assessment and Plan (1) Cirrhosis of liver with ascites Current visit: No Status: Chronic Category: Medical Code(s): K74.60 - Unspecified cirrhosis of liver; R18.8 - Other ascites (2) Nonalcoholic steatohepatitis Current visit: Yes Status: Acute Category: Medical Code(s): K75.81 - Nonalcoholic steatohepatitis (BOWSER) (3) Weakness Current visit: Yes Status: Acute Category: Medical Code(s): R53.1 - Weakness (4) Medical non-compliance Current visit: Yes Status: Acute Category: Medical Code(s): Z91.19 - Patient's noncompliance with other medical treatment and regimen (5) Coronary artery disease Current visit: No Status: Chronic Category: Medical Code(s): I25.10 - Atherosclerotic heart disease of [place] coronary artery without angina pectoris (6) History of coronary artery bypass graft x 3 Current visit: No Status: Chronic Category: Surgical Code(s): Z95.1 - Presence of aortocoronary bypass graft (7) Rheumatoid arthritis Current visit: No Status: Chronic Category: Medical Code(s): M06.9 - Rheumatoid arthritis, unspecified (8) Hyponatremia Current visit: Yes Status: Acute Category: Medical Code(s): E87.1 - Hypo- osmolality and hyponatremia (9) Renal insufficiency Current visit: Yes Status: Acute Category: Medical Code(s): N28.9 - Disorder of kidney and ureter, unspecified - Assessment and plan all Dx Assessment and Plan for all problems:: Continue present regimen. Disposition will remain an issue.
--- NOTE | 2018-06-12 07:51 | Progress Note ---
Internal Medicine - PN: Subj *Date: 06/12/18 *Time: 07:51 Exam Vital signs and Labs for Last 24 Hours: Temp Pulse Resp BP Pulse Ox 99.3 F 78 20 111/57 L 97 06/12/18 07:48 06/12/18 07:48 06/12/18 07:48 06/12/18 07:48 06/12/18 07:48 I & O for Last 24 hours: Intake & Output 06/09/18 06/10/18 06/11/18 06/12/18 23:59 23:59 23:59 23:59 Intake Total 1167 / 1167 760 / 760 480 / 480 240 / 240 Balance 1167 / 1167 760 / 760 480 / 480 240 / 240 Weight 72.83 kg 73.595 kg 73.198 kg 73.51 kg Assessment and Plan (1) Cirrhosis of liver with ascites Current visit: No Status: Chronic Category: Medical Code(s): K74.60 - Unspecified cirrhosis of liver; R18.8 - Other ascites (2) Nonalcoholic steatohepatitis Current visit: Yes Status: Acute Category: Medical Code(s): K75.81 - Nonalcoholic steatohepatitis (BOWSER) (3) Weakness Current visit: Yes Status: Acute Category: Medical Code(s): R53.1 - Weakness (4) Medical non-compliance Current visit: Yes Status: Acute Category: Medical Code(s): Z91.19 - Patient's noncompliance with other medical treatment and regimen (5) Coronary artery disease Current visit: No Status: Chronic Category: Medical Code(s): I25.10 - Atherosclerotic heart disease of [place] coronary artery without angina pectoris (6) History of coronary artery bypass graft x 3 Current visit: No Status: Chronic Category: Surgical Code(s): Z95.1 - Presence of aortocoronary bypass graft (7) Rheumatoid arthritis Current visit: No Status: Chronic Category: Medical Code(s): M06.9 - Rheumatoid arthritis, unspecified (8) Hyponatremia Current visit: Yes Status: Acute Category: Medical Code(s): E87.1 - Hypo- osmolality and hyponatremia (9) Renal insufficiency Current visit: Yes Status: Acute Category: Medical Code(s): N28.9 - Disorder of kidney and ureter, unspecified The patient's infection will respond to the chosen ABx?: Yes Is the patient receiving the right drug, dose, and route?: Yes Could a more targeted ABx be ordered?: No
--- NOTE | 2018-06-12 08:02 | Progress Note ---
Internal Medicine - PN: Subj *Date: 06/12/18 *Time: 07:59 Interval history: Patient states she is better but still feels terrible. She slept on and off last night. Her breathing is okay. Her abdominal discomfort is better than yesterday. She feels that her girth is less. She has been up to the bathroom numerous times. She states she has had 6 loose stools since yesterday. She has stool urgency. She is voiding without difficulty. She has difficulty with eating due to the nausea. Sometimes gags but has not vomited. She is complaining of a painful knot in her left lower leg. She has had minimal drainage from the paracentesis site. Selected Entries 06/09/18 13:34 06/10/18 04:02 06/11/18 05:08 Weight 160 lb 9.003 oz 162 lb 4 oz 161 lb 6 oz 06/12/18 04:22 Weight 162 lb 1 oz Exam Vital signs and Labs for Last 24 Hours: Temp Pulse Resp BP Pulse Ox 99.3 F 78 20 111/57 L 97 06/12/18 07:48 06/12/18 07:48 06/12/18 07:48 06/12/18 07:48 06/12/18 07:48 I & O for Last 24 hours: Intake & Output 06/09/18 06/10/18 06/11/18 06/12/18 11:59 11:59 11:59 11:59 Intake Total 1357 / 1357 330 / 330 720 / 720 480 / 480 Balance 1357 / 1357 330 / 330 720 / 720 480 / 480 Weight 160 lb 9 oz 162 lb 4 oz 161 lb 6 oz 162 lb 1 oz - Constitutional no acute distress Comments: Encrusted on the side of bed eating her breakfast. - *Routine Respiratory Exam Comments: Diminished breath sounds on the left. Crackles on the right posteriorly - *Routine Cardiovascular Exam Present: RRR - *Routine Abdominal Exam Present: normoactive bowel sounds, tenderness, distended Comments: Drain bag over paracentesis site is empty - *Routine Extremities Exam Present: edema, calf tenderness. Absent: palpable cord Comments: Tender not the left calf. No erythema or warmth. Only minimal edema of bilateral lower extremities. - *Routine Neurological Exam Present: alert, oriented X3 Assessment and Plan (1) Cirrhosis of liver with ascites Current visit: No Status: Chronic Category: Medical Code(s): K74.60 - Unspecified cirrhosis of liver; R18.8 - Other ascites (2) Nonalcoholic steatohepatitis Current visit: Yes Status: Acute Category: Medical Code(s): K75.81 - Nonalcoholic steatohepatitis (BOWSER) (3) Weakness Current visit: Yes Status: Acute Category: Medical Code(s): R53.1 - Weakness (4) Medical non-compliance Current visit: Yes Status: Acute Category: Medical Code(s): Z91.19 - Patient's noncompliance with other medical treatment and regimen (5) Coronary artery disease Current visit: No Status: Chronic Category: Medical Code(s): I25.10 - Atherosclerotic heart disease of [place] coronary artery without angina pectoris (6) History of coronary artery bypass graft x 3 Current visit: No Status: Chronic Category: Surgical Code(s): Z95.1 - Presence of aortocoronary bypass graft (7) Rheumatoid arthritis Current visit: No Status: Chronic Category: Medical Code(s): M06.9 - Rheumatoid arthritis, unspecified (8) Hyponatremia Current visit: Yes Status: Acute Category: Medical Code(s): E87.1 - Hypo- osmolality and hyponatremia (9) Renal insufficiency Current visit: Yes Status: Acute Category: Medical Code(s): N28.9 - Disorder of kidney and ureter, unspecified (10) Tenderness of left calf Current visit: Yes Status: Acute Category: Medical Code(s): M79.662 - Pain in left lower leg - Assessment and plan all Dx Assessment and Plan for all problems:: Continue with current care for cirrhosis. Venous Doppler study of the left lower extremity. GI to follow.
--- NOTE | 2018-06-12 08:31 | Consult Report ---
<Apple Underwood - Last Filed: 06/12/18 08:28> *Admission Date: 06/08/18 *Chief complaint: cirrhosis *History of present illness: This is a 63 year old female with a hx of new dx of decompensated cirrhosis. She was previously seen 2 weeks ago and was d/c on 05/29. She did require 3 paracentisis during hospital stay. she did not yet follow up with our office and was re-admitted on 06/08 with diarrhea and weakness. she is having diarrhea every hour and swelling in her ABD. Liver enzymes continue to be elevated. I do not have INR for MELD calculation yet. [facility] History Medical History: Reports:: Hyperlipidemia, Hypertension, Myocardial Infarction (x4) Denies:: Cancer, Diabetes Mellitus Type 1, Diabetes Mellitus Type 2 *Have you ever received a pneumonia vaccine?: No *Have you received a flu vaccine this season?: No Other Medical History: Reports: Anemia, Arthritis (rheumotoid arthritis), Sinus Problems Laterality Cases: Bilateral: Cataract Other Surgeries: Yes: CABG, Colonoscopy, Other (EGD, paracentesis x 3, oral surgery) - *Social History Smoking Status: Never smoker Alcohol Intake: never *Occupational Status:: retired *Travel in the last 8 weeks: None - Psychiatric History Expresses thoughts of harming self/others: None Suicide Plan Description: No Plan Family Hx:: Coronary Artery Disease, Diabetes, Hyperlipidemia, Hypertension, Other (COPD, Hep A) Review of Systems - Constitutional Reports fatigue, Reports weakness - *Respiratory Reports shortness of breath - *Gastrointestinal Reports abdominal pain, Reports change in bowel habits, Reports nausea, Reports constant urge to pass stool - *Neurologic Reports frequent falls, Reports dizziness, Reports weakness, Denies headache(s) Meds Home Medications Medication Instructions Recorded Confirmed Type Albuterol Sulfate [Albuterol HFA 2 puffs IH Q6HP PRN 05/17/18 06/08/18 History Inhaler] Citalopram Hydrobromide [Celexa 20 mg PO DAILY 05/17/18 06/08/18 History 20mg Tablet] Codeine/Butalbital/ASA/Caffein 1 each PO QIDP PRN 05/17/18 06/08/18 History [Fiorinal-Cod [id number] Cap] Esomeprazole Magnesium [Nexium] 20 mg PO BID 05/17/18 06/08/18 History Ferrous Sulfate 325 mg PO DAILY 05/17/18 06/08/18 History Folic Acid [Folic Acid 1mg tablet] 1 mg PO DAILY 05/17/18 06/08/18 History Furosemide [Lasix 20mg tablet] 20 mg PO DAILY 05/17/18 06/08/18 History Gabapentin [Gabapentin 300mg Cap] 300 mg PO TID 05/17/18 06/08/18 History Ipratropium/Albuterol Sulfate 3 ml IH QIDP PRN 05/17/18 06/08/18 History [Duoneb 3mL neb] L.acidoph,Paracasei, B.lactis 1 each PO DAILY 05/17/18 06/08/18 History [Probiotic] LORazepam [Lorazepam 0.5mg Tablet] 0.5 mg PO TIDP PRN 05/17/18 06/08/18 History Metoprolol Succinate 25 mg PO DAILY 05/17/18 06/08/18 History Nitroglycerin [Nitrostat 0.4mg SL 0.4 mg SL Q5MINP PRN 05/17/18 06/08/18 History Tablet] [place]-3 Fatty Acids/Fish Oil 1 each PO DAILY 05/17/18 06/08/18 History [[place] 3 Fish Oil Softgel] Triamterene/Hydrochlorothiazid 1 tab PO DAILY 05/17/18 06/08/18 History [Maxzide 37.5 mg-25 mg Tablet] Ubidecarenone [Co Q-10] 10 mg PO DAILY 05/17/18 06/08/18 History metHOTREXate sodium [Trexall] 15 mg PO .[id number] 05/17/18 06/08/18 History Ondansetron HCl/Pf [Zofran 4mg/2mL 4 mg IV Q6HP PRN #20 vial 05/29/18 06/08/18 Rx vial] Lactulose [Chronulac 20gm/30mL UDC] 20 gm PO BID 06/08/18 06/08/18 History Potassium Chloride [Klor-Con 10mEq 10 meq PO DAILY 06/08/18 06/08/18 History tab] Rifaximin [Xifaxin 200mg Tablet] 200 mg PO BID 06/08/18 06/08/18 History Spironolactone [Aldactone 25mg 200 mg PO DAILY 06/08/18 06/08/18 History Tab] Allergies Allergy/AdvReac Type Severity Reaction Status Date / Time coffee (Coffea arabica) Allergy Severe Difficulty Verified 05/29/18 13:53 Breathing Fish Containing Products Allergy Severe Difficulty Verified 05/29/18 13:53 Breathing fish derived Allergy Severe Difficulty Verified 05/29/18 13:53 Breathing morphine Allergy Severe Hallucinati Verified 05/17/18 13:00 ng Penicillins Allergy Severe Anaphylaxis Verified 05/17/18 14:13 strawberry Allergy Severe Difficulty Verified 05/29/18 13:53 Breathing garlic Allergy Intermediate Vomiting Verified 05/29/18 13:53 promethazine Allergy Intermediate Nausea Verified 05/29/18 13:54 Exam Vital signs and Labs for Last 24 Hours: Temp Pulse Resp BP Pulse Ox 99.3 F 78 20 111/57 L 97 06/12/18 07:48 06/12/18 07:48 06/12/18 07:48 06/12/18 07:48 06/12/18 07:48 I & O for Last 24 hours: Intake & Output 06/09/18 06/10/18 06/11/18 06/12/18 23:59 23:59 23:59 23:59 Intake Total 1167 / 1167 760 / 760 480 / 480 240 / 240 Balance 1167 / 1167 760 / 760 480 / 480 240 / 240 Weight 160 lb 9.003 oz 162 lb 4 oz 161 lb 6 oz 162 lb 1 oz Internal Medicine - CN: Reslt - Labs CBC & Chem 7: 06/10/18 06:35 06/10/18 06:35 Assessment and Plan (1) Cirrhosis of liver with ascites Current visit: No Status: Chronic Category: Medical Code(s): K74.60 - Unspecified cirrhosis of liver; R18.8 - Other ascites (2) Nonalcoholic steatohepatitis Current visit: Yes Status: Acute Category: Medical Code(s): K75.81 - Nonalcoholic steatohepatitis (BOWSER) (3) Weakness Current visit: Yes Status: Acute Category: Medical Code(s): R53.1 - Weakness (4) Medical non-compliance Current visit: Yes Status: Acute Category: Medical Code(s): Z91.19 - Patient's noncompliance with other medical treatment and regimen (5) Coronary artery disease Current visit: No Status: Chronic Category: Medical Code(s): I25.10 - Atherosclerotic heart disease of [place] coronary artery without angina pectoris (6) History of coronary artery bypass graft x 3 Current visit: No Status: Chronic Category: Surgical Code(s): Z95.1 - Presence of aortocoronary bypass graft (7) Rheumatoid arthritis Current visit: No Status: Chronic Category: Medical Code(s): M06.9 - Rheumatoid arthritis, unspecified (8) Hyponatremia Current visit: Yes Status: Acute Category: Medical Code(s): E87.1 - Hypo- osmolality and hyponatremia (9) Renal insufficiency Current visit: Yes Status: Acute Category: Medical Code(s): N28.9 - Disor isaac of kidney and ureter, unspecified (10) Tenderness of left calf Current visit: Yes Status: Acute Category: Medical Code(s): M79.662 - Pain in left lower leg - Assessment and plan all Dx Assessment and Plan for all problems:: 1.) Decompensated cirrhosis - Will get INR for meld calculation. At this point we have no additional mayito mmendations, however, given decompensation and severity recommend pt be scheduled for evaluation at hepatology upon discharge. She is no longer appropriate for outpt management. 2.) Diarrhea - stool studies <David Guo - Last Filed: 06/12/18 14:43> *History of present illness: The patient does have decompensated cirrhosis with ascites and some en cephalopathy. She has had difficulty with weakness. I do feel that at this point she needs some home health with basic activities of daily living. Given her MELD score and comorbidities, I would still consider her possibility for hospice care. The patient does require frequent paracentesis. She may be a candidate for TIPS (transjugular intrahepatic portosystemic shunt) which is only done at the [facility]. At this point, next step would be assessment at [facility] to see if there is anything more to offer. I do not feel that she is a transplant candidate but she could be a candidate for the tips. Exam Vital signs and Labs for Last 24 Hours: Temp Pulse Resp BP Pulse Ox 99.3 F 88 20 111/57 L 97 06/12/18 07:48 06/12/18 11:53 06/12/18 07:48 06/12/18 07:48 06/12/18 08:00 Laboratory Results - last 24 hr 06/12/18 08:35: WBC 8.6, RBC 3.66 L, Hgb 10.7 L, Hct 33.2 L, MCV 90.6, MCH 29.1, MCHC 32.1, RDW 23.0 H, Plt Count 119 L, MPV 8.7, Neut % (Auto) 84.6 H, Lymph % (Auto) 9.2 L, [place] % (Auto) 5.6, Eos % (Auto) 0.6, Baso % (Auto) 0.1, Neut # (Auto) 7.2, Lymph # (Auto) 0.8, [place] # (Auto) 0.5, Eos # (Auto) 0.1, Baso # (Auto) 0.0 06/12/18 08:35: PT 12.9 H, INR 1.26 H I & O for Last 24 hours: Intake & Output 06/09/18 06/10/18 06/11/18 06/12/18 23:59 23:59 23:59 23:59 Intake Total 1167 / 1167 760 / 760 480 / 480 480 / 480 Balance 1167 / 1167 760 / 760 480 / 480 480 / 480 Weight 72.83 kg 73.595 kg 73.198 kg 73.51 kg Internal Medicine - CN: Reslt - Labs CBC & Chem 7: 06/12/18 08:35 06/10/18 06:35 Labs: Short CBC 06/12/18 Range/Units 08:35 WBC 8.6 (4.8-10.8) K/mm3 Hgb 10.7 L (12.2-16.2) g/dL Hct 33.2 L (37.0-47.0) % Plt Count 119 L (142-424) K/mm3 Assessment and Plan (1) Cirrhosis of liver with ascites Current visit: No Status: Chronic Category: Medical Code(s): K74.60 - Unspecified cirrhosis of liver; R18.8 - Other ascites (2) Nonalcoholic steatohepatitis Current visit: Yes Status: Acute Category: Medical Code(s): K75.81 - Nonalcoholic steatohepatitis (BOWSER) (3) Weakness Current visit: Yes Status: Acute Category: Medical Code(s): R53.1 - Weakness (4) Medical non-compliance Current visit: Yes Status: Acute Category: Medical Code(s): Z91.19 - Patient's noncompliance with other medical treatment and regimen (5) Coronary artery disease Current visit: No Status: Chronic Category: Medical Code(s): I25.10 - Atherosclerotic heart disease of [place] coronary artery without angina pectoris (6) History of coronary artery bypass graft x 3 Current visit: No Status: Chronic Category: Surgical Code(s): Z95.1 - Presence of aortocoronary bypass graft (7) Rheumatoid arthritis Current visit: No Status: Chronic Category: Medical Code(s): M06.9 - Rheumatoid arthritis, unspecified (8) Hyponatremia Current visit: Yes Status: Acute Category: Medical Code(s): E87.1 - Hypo- osmolality and hyponatremia (9) Renal insufficiency Current visit: Yes Status: Acute Category: Medical Code(s): N28.9 - Disorder of kidney and ureter, unspecified (10) Tenderness of left calf Current visit: Yes Status: Acute Category: Medical Code(s): M79.662 - Pain in left lower leg
--- NOTE | 2018-06-12 08:40 | Non-Invasive Vascular Report ---
"Venous Exam Indications: 729.5 Pain in limb. Knot left calf x 2 days IMPRESSIONS 1. There is no evidence of significant Reflux. 2. No evidence of deep or superficial vein thrombosis involving the left lower extremity History: Dyspnea. Cirrhosis Left lower extremity venous duplex evaluation. Doppler flow study including spectral analysis, color and tomlinson scale imaging. Location: Bedside. Patient status: Inpatient. Tables: Venous flow and imaging: + +-------+ + |Location |Overall|Flow properties | + +-------+ + |Left common femoral |Patent |Normal phasicity; spontaneous; | | | |normal augmentation; compressible | + +-------+ + |Left saphenofemoral junction|Patent |Compressible | + +-------+ + |Left profunda femoral |Patent |Compressible | + +-------+ + |Left femoral |Patent |Normal phasicity; spontaneous; | | | |normal augmentation; compressible | + +-------+ + |Left greater saphenous |Patent |Normal phasicity; spontaneous; | | | |normal augmentation; compressible | + +-------+ + |Left popliteal |Patent |Normal phasicity; spontaneous; | | | |normal augmentation; compressible | + +-------+ + |Left posterior tibial |Patent |Compressible | + +-------+ + |Left peroneal |Patent |Compressible | + +-------+ + |Left gastrocnemius |Patent |Compressible | + +-------+ + |Left soleal |Patent |Compressible | + +-------+ + (Report amended ) Electronically signed by: Shivam Van [id number]"
[2018-06-12 08:50] LABS: Basophils % 0.1 % (0.1-2.0); Eosinophils # 0.1 K/mm3 (0.0-0.4); Eosinophils % 0.6 % (0.1-12.0); Hematocrit 33.2 % (37.0-47.0); Hemoglobin 10.7 g/dL (12.2-16.2); Lymphocytes # 0.8 K/mm3 (0.7-4.5); Lymphocytes % 9.2 % (10-50); Mean Corpuscular HGB Conc 32.1 g/dL (31.8-35.4); Mean Corpuscular Hemoglobin 29.1 pg (27.0-31.2); Mean Corpuscular Volume 90.6 fl (81-99); Mean Platelet Volume 8.7 fl (7.4-10.4); Monocytes # 0.5 K/mm3 (0.1-1.0); Monocytes % 5.6 % (1.7-9.3); Neutrophils # 7.2 K/mm3 (1.8-7.8); Neutrophils % 84.6 % (37.0-80.0); Platelet Count 119 K/mm3 (142-424); Red Blood Count 3.66 M/mm3 (4.20-5.40); White Blood Count 8.6 K/mm3 (4.8-10.8)
[2018-06-12 08:55] LABS: INR 1.26 (0.9-1.1); Prothrombin Time 12.9 seconds (9.4-11.8)
[2018-06-13 06:59] LABS: Albumin Level 2.1 gm/dL (3.4-5.0); Albumin/Globulin Ratio 0.4 (1.1-1.8); Anion Gap 15.9 mEq/L (5-15); Bilirubin,Total 1.9 mg/dL (0.2-1.0); Globulin 4.8 gm/dl (1.3-3.2); Total Protein,Serum 6.9 gm/dL (6.4-8.2)
[2018-06-13 07:01] LABS: Potassium 4.9 mmoL/L (3.5-5.1)
--- NOTE | 2018-06-13 08:40 | Progress Note ---
Internal Medicine - PN: Subj *Date: 06/13/18 *Time: 08:37 Interval history: Patient feels about the same. She continues with abdominal pain. She continues with nausea. She has not vomited. She had one stool yesterday and 3 loose stools during the night. She states she slept at intervals probably about an hour. She continues to ambulate to the bathroom with her cane. Left lower leg continues to hurt. Venous Doppler study was negative. She states no drainage from previous paracentesis site. Patient describes shortness of breath with any exertion. She wears her oxygen as needed. GI consult note appreciated. Repeat stool studies are negative Selected Entries 06/11/18 05:08 06/12/18 04:22 06/13/18 04:29 Weight 161 lb 6 oz 162 lb 1 oz 162 lb 6.4 oz Laboratory Tests 06/13/18 06:15 Sodium 132 L Potassium 4.9 Chloride 100 Carbon Dioxide 21 Anion Gap 15.9 H BUN 26 H D Creatinine 1.40 H D Estimated Creat Clear 48 Estimated GFR 38 L Est GFR ( Amer) 46 L D Glucose 105 Calcium 9.0 Total Bilirubin 1.9 H AST 97 H ALT 58 Alkaline Phosphatase 164 H Total Protein 6.9 Albumin 2.1 L Globulin 4.8 H Albumin/Globulin Ratio 0.4 L Exam Vital signs and Labs for Last 24 Hours: Temp Pulse Resp BP Pulse Ox 98.4 F 79 17 97/60 L 95 06/13/18 08:00 06/13/18 08:00 06/13/18 08:00 06/13/18 08:00 06/13/18 08:00 Laboratory Results - last 24 hr 06/12/18 08:35: WBC 8.6, RBC 3.66 L, Hgb 10.7 L, Hct 33.2 L, MCV 90.6, MCH 29.1, MCHC 32.1, RDW 23.0 H, Plt Count 119 L, MPV 8.7, Neut % (Auto) 84.6 H, Lymph % (Auto) 9.2 L, [place] % (Auto) 5.6, Eos % (Auto) 0.6, Baso % (Auto) 0.1, Neut # (Auto) 7.2, Lymph # (Auto) 0.8, [place] # (Auto) 0.5, Eos # (Auto) 0.1, Baso # (Auto) 0.0 06/12/18 08:35: PT 12.9 H, INR 1.26 H 06/13/18 00:00: Stl Aeromonas (PCR) Not detected, Stl C. cayetanensis PCR Not detected, Stool Rotavirus (PCR) Not detected, Stl Adenov F 40/41 PCR Not detected, Stool Astrovirus (PCR) Not detected, Stool Campylobacter PCR Not detected, Stl C.difficile Tox PCR Not detected, Stool Cryptosporidium PCR Not detected, Stl E.coli Shiga Tox PCR Not detected, Stool E coli O157 PCR Not detected, Stl Enterotoxigenic E PCR Not detected, Stool EPEC (PCR) Not detected, Stool EAEC (PCR) Not detected, Stl E. histolytica PCR Not detected, Stool Giardia Lamblia PCR Not detected, Stool Salmonella PCR Not detected, Stool Sapovirus (PCR) Not detected, Stl P. shigelloides PCR Not detected, Stl Shigella/EIEC PCR Not detected, St Y.enterocolitica PCR Not detected, Stool Vibrio (PCR) Not detected, Stl Vibrio cholerae PCR Not detected, Stl Norovirus GI/GII PCR Not detected 06/13/18 06:15: Sodium 132 L, Potassium 4.9, Chloride 100, Carbon Dioxide 21, Anion Gap 15.9 H, BUN 26 H D, Creatinine 1.40 H D, Estimated Creat Clear 48, Estimated GFR 38 L, Est GFR ( Amer) 46 L D, Glucose 105, Calcium 9.0, Total Bilirubin 1.9 H, AST 97 H, ALT 58, Alkaline Phosphatase 164 H, Total Protein 6.9, Albumin 2.1 L, Globulin 4.8 H, Albumin/Globulin Ratio 0.4 L I & O for Last 24 hours: Intake & Output 06/10/18 06/11/18 06/12/18 06/13/18 11:59 11:59 11:59 11:59 Intake Total 330 / 330 720 / 720 480 / 480 1350 / 1350 Balance 330 / 330 720 / 720 480 / 480 1350 / 1350 Weight 162 lb 4 oz 161 lb 6 oz 162 lb 1 oz 162 lb 6.4 oz Radiology Reports for the Last 24 Hours: 06/12/2018 venous Doppler study of left lower extremity IMPRESSIONS 1. There is no evidence of significant Reflux. 2. No evidence of deep or superficial vein thrombosis involving the left lower extremity - Constitutional no acute distress Comments: Sitting cross legged and on side of bed eating her breakfast. - *Routine Respiratory Exam Comments: Few bibasilar crackles - *Routine Cardiovascular Exam Present: RRR - *Routine Abdominal Exam Present: normoactive bowel sounds, tenderness, distended - *Routine Extremities Exam Comments: Trace bilateral lower extremity edema - *Routine Neurological Exam Present: alert, oriented X3 Assessment and Plan (1) Cirrhosis of liver with ascites Current visit: No Status: Chronic Category: Medical Code(s): K74.60 - Unspecified cirrhosis of liver; R18.8 - Other ascites (2) Nonalcoholic steatohepatitis Current visit: Yes Status: Acute Category: Medical Code(s): K75.81 - Nonalcoholic steatohepatitis (BOWSER) (3) Weakness Current visit: Yes Status: Acute Category: Medical Code(s): R53.1 - Weakness (4) Medical non-compliance Current visit: Yes Status: Acute Category: Medical Code(s): Z91.19 - Patient's noncompliance with other medical treatment and regimen (5) Coronary artery disease Current visit: No Status: Chronic Category: Medical Code(s): I25.10 - Atherosclerotic heart disease of [place] coronary artery without angina pectoris (6) History of coronary artery bypass graft x 3 Current visit: No Status: Chronic Category: Surgical Code(s): Z95.1 - Presence of aortocoronary bypass graft (7) Rheumatoid arthritis Current visit: No Status: Chronic Category: Medical Code(s): M06.9 - Rheumatoid arthritis, unspecified (8) Hyponatremia Current visit: Yes Status: Acute Category: Medical Code(s): E87.1 - Hypo- osmolality and hyponatremia (9) Renal insufficiency Current visit: Yes Status: Acute Category: Medical Code(s): N28.9 - Disorder of kidney and ureter, unspecified (10) Tenderness of left calf Current visit: Yes Status: Acute Category: Medical Code(s): M79.662 - Pain in left lower leg - Assessment and plan all Dx Assessment and Plan for all problems:: Continue with current care
--- NOTE | 2018-06-14 08:09 | Progress Note ---
Internal Medicine - PN: Subj *Date: 06/14/18 *Time: 08:06 Interval history: Pt states she is feeling poorly today. She states she feels like her abdomen is swelling more today. She is coughing. She states she feels very weak. She tried to eat breakfast this morning and became nauseated and was unable to eat. Exam Vital signs and Labs for Last 24 Hours: Temp Pulse Resp BP Pulse Ox 97.6 F 74 16 104/57 L 92 L 06/14/18 04:00 06/14/18 05:57 06/14/18 04:00 06/14/18 04:00 06/14/18 05:57 I & O for Last 24 hours: Intake & Output 06/11/18 06/12/18 06/13/18 06/14/18 11:59 11:59 11:59 11:59 Intake Total 720 / 720 480 / 480 1350 / 1350 600 / 600 Output Total 550 / 550 Balance 720 / 720 480 / 480 1350 / 1350 50 / 50 Weight 161 lb 6 oz 162 lb 1 oz 162 lb 6.4 oz 164 lb 1 oz Microbiology Reports for the Last 24 Hours: Microbiology 06/08/18 16:05 Blood Blood Culture - Final NO GROWTH AFTER 5 DAYS 06/08/18 16:05 Blood Blood Culture - Final NO GROWTH AFTER 5 DAYS - Constitutional no acute distress - *Routine Respiratory Exam Present: rales (bibasilar) - *Routine Cardiovascular Exam Present: RRR - *Routine Abdominal Exam Present: soft, normoactive bowel sounds, tenderness (diffuse), distended - *Routine Extremities Exam Absent: cyanosis, clubbing, edema Assessment and Plan (1) Cirrhosis of liver with ascites Current visit: No Status: Chronic Category: Medical Code(s): K74.60 - Unspecified cirrhosis of liver; R18.8 - Other ascites (2) Nonalcoholic steatohepatitis Current visit: Yes Status: Acute Category: Medical Code(s): K75.81 - Nonalcoholic steatohepatitis (BOWSER) (3) Weakness Current visit: Yes Status: Acute Category: Medical Code(s): R53.1 - Weakness (4) Medical non-compliance Current visit: Yes Status: Acute Category: Medical Code(s): Z91.19 - Patient's noncompliance with other medical treatment and regimen (5) Coronary artery disease Current visit: No Status: Chronic Category: Medical Code(s): I25.10 - Atherosclerotic heart disease of [place] coronary artery without angina pectoris (6) History of coronary artery bypass graft x 3 Current visit: No Status: Chronic Category: Surgical Code(s): Z95.1 - Presence of aortocoronary bypass graft (7) Rheumatoid arthritis Current visit: No Status: Chronic Category: Medical Code(s): M06.9 - Rheumatoid arthritis, unspecified (8) Hyponatremia Current visit: Yes Status: Acute Category: Medical Code(s): E87.1 - Hypo- osmolality and hyponatremia (9) Renal insufficiency Current visit: Yes Status: Acute Category: Medical Code(s): N28.9 - Disorder of kidney and ureter, unspecified (10) Tenderness of left calf Current visit: Yes Status: Acute Category: Medical Code(s): M79.662 - Pain in left lower leg - Assessment and plan all Dx Assessment and Plan for all problems:: Will get a chest x-ray today. Further as per Dr. sutherland.
--- NOTE | 2018-06-17 12:56 | Discharge Summary ---
General - General Admission date:: 06/08/18 Discharge date: 07/12/18 HPI HPI: Ms. Starks is a 63-year-old female who was just recently discharged from [facility] on 05/29/18 after an admission for cirrhosis of the liver with ascites, dehydration, and C. difficile enterocolitis. The patient had to have 3 paracentesis procedures done while in the hospital due to a reaccumulation of her ascites. She was seen in consultation by Dr. Guo who wanted to follow-up with her in his office after discharge. The patient presented to [facility] today after missing a few of her follow-up appointments that were scheduled. She states she has been so sick she was unable to get to the doctor or to see Dr. Guo. She states she is extremely weak. She lives at home alone and has been falling due to weakness. She states she can hardly walk arrives at the office today in a wheelchair. She has had continued drainage from the paracentesis site and radiology did place a drainage bag over the wound to collect the fluid. She states she has been emptying this bag daily. She states she was instructed upon discharge to quit taking all of her normal home medications and start taking the few medications that were prescribed to her during at her discharge. According to the discharge summary, the patient was to continue her home medications and add these additional medicines to her regimen. She states she was unable to afford the Xifaxan because it was too expensive. She has been taking spironolactone, potassium 10 mEq a day, Zofran as needed, and lactulose. She states she has continued to have diarrhea. She remains nauseated and is unable to eat. She has been trying to drink. She will be admitted and labs and blood cultures will be drawn. Dr. Guo will be consulted. Hospital Course Hospital Course: The patient was started on Zofran for nausea and Dr. Guo was consulted. Her renal function was slightly elevated, therefore she was started on IV fluids at 50 mL/h. Her paracentesis site continued to drain. She was able to tolerate a diet with some nausea. She was wheezing and was started on some duo nebs. An ammonia level was ordered due to some confusion. It was normal. The patient was seen by Dr. Guo who felt she had cirrhosis with decompensation and intractable ascites. He felt that given the fact she had some rebound tenderness, she needed to be covered for spontaneous bacterial peritonitis due to leakage at the prior paracentesis site. He also wanted to add albumin 12 g daily for 2 days in a row. He also recommended a good probiotic to defend against C. difficile as patient had had this at the previous admission. He felt she was going to be a management problem long-term and may require hospice and home health. He felt if her ascites continued to be intractable, diuretics doses could be increased, however this could be at the detriment of her renal function. The patient was saline locked and had to be given some additional Lasix. Levaquin was added. The patient remained stable and continued to have drainage of the paracentesis site. She did have a venous Doppler ordered d/t some leg pain and it showed no DVT. She was seen again by Apple landry from Dr. Guo office. She wanted to have an INR to check for meld calculation. She felt the patient should be scheduled for an evaluation at hepatology upon discharge as she was no longer appropriate for outpatient management. She also ordered stool studies due to the development of diarrhea. She and Dr. Guo felt that the patient may have some degree of encephalopathy. They recommended home health for basic activities of daily living. Dr. Guo still felt she could be a candidate for hospice care and that she might require frequent paracentesis. He also felt she could be a candidate for the TIPS procedure, which is only done at the [facility]. He felt she should be assessed at to see if there was anything more that could be offered as she is not a transplant candidate. Her stool studies were negative. On 06/14/18, she stated she felt like her abdomen was swelling more and she developed a cough. A chest x-ray was ordered and showed slight progression of the left lower lobe consolidation with a small effusion. She was already on abx. Home health was discussed with the patient but she refused. She was discharged home and an appointment was made for her on an outpatient basis at the [facility] for further evaluation of her liver disease. Objective Vital signs: Temp Pulse Resp BP Pulse Ox 97.7 F 77 18 102/54 L 90 L 06/14/18 15:02 06/14/18 15:02 06/14/18 15:02 06/14/18 15:02 06/14/18 15:02 Narrative: - Constitutional Comments: Does not appear to feel well, in a wheelchair - *Routine HEENT Exam Head: Present: normocephalic, atraumatic Eye: Present: EOMI, PERRL ENT: Present: mucous membranes dry - *Routine Neck Exam Present: supple. Absent: lymphadenopathy - *Routine Respiratory Exam Present: CTA bilaterally - *Routine Cardiovascular Exam Present: RRR - *Routine Abdominal Exam Present: soft, normoactive bowel sounds, tenderness (diffuse but worse in the epigastric area), distended Comments: drainage into bag from previous paracentesis site - *Routine Extremities Exam Present: edema (trace bilateral LE's) - *Routine Skin Exam Present: jaundice - *Routine Neurological Exam confused at times DS: Diagnosis - Discharge Diagnosis (1) Cirrhosis of liver with ascites Status: Chronic (2) Nonalcoholic steatohepatitis Status: Acute (3) Weakness Status: Acute (4) Medical non-compliance Status: Acute (5) Coronary artery disease Status: Chronic (6) History of coronary artery bypass graft x 3 Status: Chronic (7) Rheumatoid arthritis Status: Chronic (8) Hyponatremia Status: Acute (9) Renal insufficiency Status: Acute (10) Tenderness of left calf Status: Acute Discharge Plan - Patient Discharge Instructions ACTIVITY: Limited activity DIET: low fat, low cholesterol Patient Instructions: High-Calorie, High-Protein Diet, DI for Ascites, DI for Cirrhosis, DI for Muscle Weakness, Low-Sodium Diet - Follow up Plan Follow up with: Irene Mena MD [Primary Care Provider] - 06/19/18 Disposition: Home, Self-Retirement Medications: Home Medications Medication Instructions Recorded Confirmed Type Albuterol Sulfate [Albuterol HFA 2 puffs IH Q6HP PRN 05/17/18 06/08/18 History Inhaler] Citalopram Hydrobromide [Celexa 20 mg PO DAILY 05/17/18 06/08/18 History 20mg Tablet] Codeine/Butalbital/ASA/Caffein 1 each PO QIDP PRN 05/17/18 06/08/18 History [Fiorinal-Cod 86-53-476-40 Cap] Esomeprazole Magnesium [Nexium] 20 mg PO BID 05/17/18 06/08/18 History Ferrous Sulfate 325 mg PO DAILY 05/17/18 06/08/18 History Folic Acid [Folic Acid 1mg tablet] 1 mg PO DAILY 05/17/18 06/08/18 History Furosemide [Lasix 20mg tablet] 20 mg PO DAILY 05/17/18 06/08/18 History Gabapentin [Gabapentin 300mg Cap] 300 mg PO TID 05/17/18 06/08/18 History Ipratropium/Albuterol Sulfate 3 ml IH QIDP PRN 05/17/18 06/08/18 History [Duoneb 3mL neb] L.acidoph,Paracasei, B.lactis 1 each PO DAILY 05/17/18 06/08/18 History [Probiotic] LORazepam [Lorazepam 0.5mg Tablet] 0.5 mg PO TIDP PRN 05/17/18 06/08/18 History Metoprolol Succinate 25 mg PO DAILY 05/17/18 06/08/18 History Nitroglycerin [Nitrostat 0.4mg SL 0.4 mg SL Q5MINP PRN 05/17/18 06/08/18 History Tablet] Cameron-3 Fatty Acids/Fish Oil 1 each PO DAILY 05/17/18 06/08/18 History [Cameron 3 Fish Oil Softgel] Triamterene/Hydrochlorothiazid 1 tab PO DAILY 05/17/18 06/08/18 History [Maxzide 37.5 mg-25 mg Tablet] Ubidecarenone [Co Q-10] 10 mg PO DAILY 05/17/18 06/08/18 History Ondansetron HCl/Pf [Zofran 4mg/2mL 4 mg IV Q6HP PRN #20 vial 05/29/18 06/08/18 Rx vial] Lactulose [Chronulac 20gm/30mL UDC] 20 gm PO BID 06/08/18 06/08/18 History Rifaximin [Xifaxin 200mg Tablet] 200 mg PO BID 06/08/18 06/08/18 History Spironolactone [Aldactone 25mg 200 mg PO DAILY 06/08/18 06/08/18 History Tab] Potassium Chloride [Micro-K 10mEq 10 meq PO BID capsule.er 06/14/18 Rx cap] Prescriptions/Medication Reconciliation: New Potassium Chloride [Micro-K 10mEq cap] 10 meq PO BID capsule.er Continue Gabapentin [Gabapentin 300mg Cap] 300 mg PO TID L.acidoph,Paracasei, B.lactis [Probiotic] 1 each PO DAILY Cameron-3 Fatty Acids/Fish Oil [Cameron 3 Fish Oil Softgel] 1 each PO DAILY Ferrous Sulfate 325 mg PO DAILY Esomeprazole Magnesium [Nexium] 20 mg PO BID Albuterol Sulfate [Albuterol HFA Inhaler] 2 puffs IH Q6HP PRN PRN Reason: Shortness Of Breath Or Wheezing Nitroglycerin [Nitrostat 0.4mg SL Tablet] 0.4 mg SL Q5MINP PRN PRN Reason: Chest Pain Codeine/Butalbital/ASA/Caffein [Fiorinal-Cod [id number] Cap] 1 each PO QIDP PRN PRN Reason: MIGRAINE HEADACHES LORazepam [Lorazepam 0.5mg Tablet] 0.5 mg PO TIDP PRN PRN Reason: Anxiety Furosemide [Lasix 20mg tablet] 20 mg PO DAILY Citalopram Hydrobromide [Celexa 20mg Tablet] 20 mg PO DAILY Folic Acid [Folic Acid 1mg tablet] 1 mg PO DAILY Ondansetron HCl/Pf [Zofran 4mg/2mL vial] 4 mg IV Q6HP PRN #20 vial PRN Reason: Nausea And Vomiting Spironolactone [Aldactone 25mg Tab] 200 mg PO DAILY Lactulose [Chronulac 20gm/30mL UDC] 20 gm PO BID Rifaximin [Xifaxin 200mg Tablet] 200 mg PO BID Metoprolol Succinate 25 mg PO DAILY Ubidecarenone [Co Q-10] 10 mg PO DAILY Ipratropium/Albuterol Sulfate [Duoneb 3mL neb] 3 ml IH QIDP PRN PRN Reason: Shortness Of Breath Triamterene/Hydrochlorothiazid [Maxzide 37.5 mg-25 mg Tablet] 1 tab PO DAILY Discontinued metHOTREXate sodium [Trexall] 15 mg PO .[id number] Potassium Chloride [Klor-Con 10mEq tab] 10 meq PO DAILY
== END 2018-06-14 16:35 | disposition home or self-care (01) | DRG 442 ==
LOC: 2ND 15:45
PROVIDERS: ADMIT Family Medicine; ATTEND Family Medicine
CPT/HCPCS: 36415; 71010; 71045; 80053; 82140; 83880; 85025; 85610; 87040; 87506; 93971; 94640; 94761; J2405; P9047